=== PATIENT | male | born 1935 | race Caucasian/White ===

== ENCOUNTER 2019-08-28 10:09 | Observation (INO) ==
--- OUTSIDE RECORDS SUMMARY | 2019-08-28 10:12 | External Medical Summary | Continuity of Care Document ---
:1935 Author Name Chyna Copeland, Provider Address Unavailable Unavailable , Care Team Providers Name Role Phone Non[facility] Min, Provider Unavailable [email or web address] Active medical history not documented Allergies and Adverse Reactions Allergy history not documented Medications Medications not documented Procedures Procedures not documented Immunizations Immunizations not documented Plan of Treatment Planned Observations Planned Goals not documented Results No Known Results Results not documented
[2019-08-28] MEDS ORDERED: NITROGLYCERIN 2% OINTMENT 30GM TUBE EXT STA (10:19)
--- NOTE | 2019-08-28 10:24 | Emergency Department Note ---
Impression & Plan Precordial chest pain, History of coronary artery disease, RBBB, H/O mechanical aortic valve replacement ED Provider Note NAME: YAKOV STERLING AGE: 84 SEX: M : 1935 ARRIVES VIA: Ambulance INFORMANT: [Patient][ems] ED PROVIDER(S): [Kelechi Rodriguez MD] CHIEF COMPLAINT: Chest pain HISTORY OF PRESENT ILLNESS: The patient is an 84-year-old male who presents to the ER with chest pain which began yesterday. He describes the pain as a burning. The pain does not radi ate. There has been no shortness of breath, sweating or nausea. The pain is rated at its worst as a 7/10. The patient thinks that exertion makes the pain worse, rest makes it better. He states it feels like angina. The patient has a mechanical aortic valve. He had coronary bypasses in 2001. Justa blanchard has a total of 5 stents, the last stent was placed in 2018. The patient presents by EMS. He was given a baby aspirin in route. There has been no cough, cold or congestion, he has not suffered trauma. He typically goes to the [facility] system but, they could not see him today. REVIEW OF SYSTEMS: See HPI for pertinent positives and negatives. A total of ten systems were reviewed and were otherwise negative. PMHx/PSHx: See Below SOCIAL HISTORY: See Below. PHYSICAL EXAM: GENERAL: Patient is in no acute distress. HEENT: No acute trauma, normocephalic atraumatic, mucous membranes moist, no nasal congestion, no scleral icterus. NECK: No stridor, no adenopathy, no meningismus, trachea is midline. LUNGS: Clear to auscultation bilaterally, no wheeze, no rhonchi, breath sounds equal. HEART: 3/6 systolic murmur, metallic click heard. Regular rate and rhythm. Chest: Tender to the left anterior chest wall just below the left breast. No rash. ABDOMEN: Soft, nontender, bowel sounds positive, no hernias, no peritonitis. EXTREMITIES: No cyanosis or edema, full range of motion of all the joints without pain or difficulty, no signs for acute trauma. NEUROLOGIC: Oriented x 3, no acute motor or sensory deficits, no focal weakness. SKIN: No rash, no jaundice, no diaphoresis. DIFFERENTIAL DIAGNOSIS: Cardiac ischemia, aortic dissection, pulmonary embolism, pneumothorax, pneumonia, pericarditis, myocarditis, esophageal rupture, GERD, cholecystitis, pancreatitis, musculoskeletal, as well as other pathologies. EMERGENCY DEPARTMENT COURSE/PROCEDURES: ECG: Indication was chest pain. The ECG shows a sinus rhythm with a first- degree AV block. PVCs are present. There is a right bundle branch block. The rate is 73. QTC is 531. There is no ST elevation. LVH is present. No old ECGs available for comparison. Continuous Cardiac Monitoring: An order was placed for continuous cardiac wen toring. The monitor shows a rate of 75 with sinus rhythm with a first-degree AV block. PVCs are noted.. MEDICAL DECISION MAKING: There is no leukocytosis or concerning anemia. There is a normal platelet count. INR is elevated at 4.2, he is over the therapeutic window with his Coumadin use. There was no significant electrolyte abnormality or kidney failure. No concerning liver enzyme elevation. No evidence for pancreatitis. ECG shows a sinus rhythm with a right bundle branch block, no obvious ischemia. Cardiac enzyme testing x1 is not consistent with acute cardiac injury. Chest film shows some congestion at both bases especially on the right. There is no pneumothorax or mediastinal widening. No old chest x-rays to use for comparison. The patient presents with precordial chest pain which is described as exertional. He does have a significant history of coronary artery disease. He has had coronary bypass and coronary stenting. His pain feels like his previous diagnosis of angina. The patient does have some reproducible left chest pain by my exam. His pain of course could be musculoskeletal. Given his history though, I do think further cardiac work-up is warranted. The patient received nitroglycerin paste while here in the ED. He is resting comfortably. I did discuss my results with him. The on-call hospitalist has been consulted. Case management has been involved. Past Med/Surg History Medical History History of coronary artery disease (Acute) Surgical History H/O mechanical aortic valve replacement (Acute) Social History Smoking Status: Former smoker Feels Safe at Home: Yes Allergies Allergies Allergy/AdvReac Type Severity Reaction Status Date / Time aspirin AdvReac Intermediate high doses Unverified 08/28/19 11:06 burn his stomach Home Meds Home Medications Medication Instructions Recorded Confirmed aspirin 81 mg PO QAM 08/28/19 08/28/19 ezetimibe 10 mg PO QAM 08/28/19 08/28/19 finasteride 5 mg PO PM 08/28/19 08/28/19 furosemide [Lasix] 20 mg PO QAM 08/28/19 08/28/19 glycerin (adult) 1 supp UT DAILY PRN 08/28/19 08/28/19 guaifenesin [Mucinex] 600 mg PO QAM 08/28/19 08/28/19 hydralazine 50 mg PO QID 08/28/19 08/28/19 hydrochlorothiazide 25 mg PO QAM 08/28/19 08/28/19 methocarbamol 500 mg PO QID 08/28/19 08/28/19 multivitamin 1 tab PO QAM 08/28/19 08/28/19 nitroglycerin 1 patch TRANSDERMAL QA 08/28/19 08/28/19 nitroglycerin 1 patch TRANSDERMAL QAM 08/28/19 08/28/19 ranolazine 1,000 mg PO BID 08/28/19 08/28/19 tamsulosin 0.4 mg PO HS 08/28/19 08/28/19 warfarin 5 mg PO PM 08/28/19 08/28/19 Results & Data (ED) Vital Signs Vital Signs - 24 hr 08/28/19 10:20 08/28/19 10:23 08/28/19 10:28 Temperature Temperature Source Pulse Rate 72 73 73 Pulse Rate from SpO2 Sensor 72 73 Respiratory Rate 15 16 20 Respiratory Effort / Characteristics Respiratory Depth Respiratory Pattern Blood Pressure 159/79 H Blood Pressure Mean 117 Pulse Oximetry 95 95 95 Oxygen Delivery Method Room Air Sepsis Recent Fever Within 48 Hours Sepsis New/Unexplained Change in Mental Status Sepsis Action Taken by Nursing 08/28/19 10:30 08/28/19 10:31 08/28/19 10:33 Temperature 36.7 C Temperature Source Oral Pulse Rate 72 73 73 Pulse Rate from SpO2 Sensor 70 73 Respiratory Rate 16 19 20 Respiratory Effort / Characteristics Non-Labored Spontaneous Respiratory Depth Normal Respiratory Pattern Regular Blood Pressure 150/75 H 183/88 H Blood Pressure Mean 101 119 Pulse Oximetry 94 96 95 Oxygen Delivery Method Room Air Sepsis Recent Fever Within 48 Hours No Sepsis New/Unexplained Change in Mental Status No Sepsis Action Taken by Nursing No Action Required 08/28/19 11:00 Temperature Temperature Source Pulse Rate 75 Pulse Rate from SpO2 Sensor Respiratory Rate 16 Respiratory Effort / Characteristics Respiratory Depth Respiratory Pattern Blood Pressure 124/59 L Blood Pressure Mean 76 Pulse Oximetry Oxygen Delivery Method Sepsis Recent Fever Within 48 Hours Sepsis New/Unexplained Change in Mental Status Sepsis Action Taken by Usp Medications Current Medication List: was personally reviewed by me Laboratory Data Attestation: I reviewed the patient's lab results. Result diagrams: 08/28/19 09:30 08/28/19 09:30 Lab Results 08/28/19 08/28/19 08/28/19 Range/Units 09:30 09:30 09:30 WBC 7.05 (4.8-10.8) K/uL RBC 4.27 L (4.7-6.1) M/uL Hgb 14.9 (14.0-18.0) g/dL Hct 41.4 L (42-52) % MCV 97.0 (80-100) fL MCH 34.9 H (25-34) pg MCHC 36.0 (32-36) g/dL RDW Std Deviation 48.0 H (36.4-46.3) fL RDW Coeff of Jaclyn 13.8 (11.5-14.5) % Plt Count 165 (130-400) K/uL MPV 10.4 (7.4-10.4) fL Immature Gran % (Auto) 0.3 % Neut % (Auto) 65.9 % Lymph % (Auto) 21.6 % Cascade % (Auto) 9.4 % Eos % (Auto) 2.4 % Baso % (Auto) 0.4 % Neut # (Auto) 4.65 (1.4-6.5) K/uL Lymph # (Auto) 1.52 (1.2-3.4) K/uL Cascade # (Auto) 0.66 H (0.11-0.59) K/uL Eos # (Auto) 0.17 (0-0.5) K/uL Baso # (Auto) 0.03 (0-0.2) K/uL Immature Gran # (Auto) 0.02 (0.00-0.02) K/uL PT 41.0 H (9.0-12.0) Seconds INR 4.2 H (0.9-1.1) APTT 45.3 H* (21.0-31.0) Seconds PTT Ratio 1.6 Sodium 134 L (136-145) mmol/L Potassium 3.9 (3.5-5.1) mmol/L Chloride 103 (98-107) mmol/L Carbon Dioxide 25 (21-32) mmol/L Anion Gap 7.0 (3-11) BUN 18 (7-18) mg/dl Creatinine 1.09 (0.6-1.4) mg/dl Est Cr Clr Drug Dosing 56.7 ml/min Est GFR ( Amer) 72.4 Est GFR (Non-Af Amer) 62.4 BUN/Creatinine Ratio 16.3 (10-20) Glucose 150 H (70-99) mg/dl Calcium 9.3 (8.5-10.1) mg/dl Magnesium 2.1 (1.8-2.4) mg/dl Total Bilirubin 0.8 (0.2-1) mg/dl AST 39 H (15-37) U/L ALT 41 (12-78) U/L Alkaline Phosphatase 54 (45-117) U/L Troponin I < 0.015 (0-0.045) ng/ml Total Protein 7.7 (6.4-8.2) gm/dl Albumin 3.6 (3.4-5.0) gm/dl Globulin 4.1 H (2.5-4.0) gm/dl Albumin/Globulin Ratio 0.9 (0.9-2) Lipase 67 L (73-393) U/L Specimen Hemolysis Administered Medications Discontinued Medications Nitroglycerin (Nitro-Bid 2%) 2 inch EXT NOW STA Stop: 08/28/19 10:20 Last Admin: 08/28/19 10:49 Dose: 2 inch Documented by: [id number] Imaging Data Radiologist's Impression: SINGLE VIEW CHEST CLINICAL HISTORY: Atypical chest pain. FINDINGS: An AP, portable, upright chest radiograph is obtained No prior studies are available for comparison at the time of dictation. The examination is degraded by portable technique and patient rotation. The patient is status post midline sternotomy. The heart is enlarged noting atherosclerotic calcification of the thoracic aorta. The pulmonary vasculature is noncongested. There is patchy airspace consolidation at the lung bases, right greater than left. A small right pleural effusion is noted. No pneumothorax is seen. The skeletal structures are osteopenic. The bony thorax is grossly intact. IMPRESSION: 1. Cardiomegaly without radiographic evidence of congestive failure. 2. There is right greater than left bibasilar airspace consolidation. Correlate clinically for evidence of pneumonia/aspiration pneumonitis. Radiographic follow-up to resolution is recommended. 3. Small right pleural effusion. Blood Pressure Blood Pressure Findings: Elevated blood pressure Blood Pressure Disposition: further management by hospitalist Discharge Plan Visit Data Chief Complaint: Cardiac Assessment Stated Complaint: chest discomfort ED Provider: Kelechi Rodriguez Discharge Problem: Precordial chest pain, History of coronary artery disease, RBBB, H/O mechanical aortic valve replacement Patient Disposition: Admitted As Inpatient Condition: Good Forms Stand Alone Forms: [facility] [place] Prescriptions Prescriptions: No Action multivitamin Tablet 1 tab PO QAM RF: 0 methocarbamol 500 mg Tablet 500 mg PO QID RF: 0 nitroglycerin 0.2 mg/hr Patch 24 Hour 1 patch TRANSDERMAL QAM RF: 0 aspirin 81 mg Tablet,Delayed Release (Dr/Ec) 81 mg PO QAM RF: 0 nitroglycerin 0.4 mg/hr Patch 24 Hour 1 patch TRANSDERMAL QAM RF: 0 tamsulosin 0.4 mg Capsule 0.4 mg PO HS RF: 0 warfarin 5 mg Tablet 5 mg PO PM RF: 0 hydralazine 50 mg Tablet 50 mg PO QID RF: 0 hydrochlorothiazide 25 mg Tablet 25 mg PO QAM RF: 0 furosemide [Lasix] 20 mg Tablet 20 mg PO QAM RF: 0 finasteride 5 mg Tablet 5 mg PO PM RF: 0 ezetimibe 10 mg Tablet 10 mg PO QAM RF: 0 glycerin (adult) Suppository 1 supp UT DAILY PRN (Reason: Constipation) RF: 0 ranolazine 500 mg Tablet Extended Release 12 Hr 1,000 mg PO BID RF: 0 guaifenesin [Mucinex] 600 mg Tablet Extended Release 12hr 600 mg PO QAM RF: 0 Referrals Referrals: Ifeanyi Kauffman MD [Primary Care Provider] -
[2019-08-28 10:29] LABS: Basophils # (auto) 0.03 K/uL (0-0.2); Basophils % (auto) 0.4 %; Eosinophils # (auto) 0.17 K/uL (0-0.5); Eosinophils % (auto) 2.4 %; Hematocrit (blood only) 41.4 % (42-52); Hemoglobin 14.9 g/dL (14.0-18.0); Immature Granulocytes # (auto) 0.02 K/uL (0.00-0.02); Immature Granulocytes % (auto) 0.3 %; Lymphocytes # (auto) 1.52 K/uL (1.2-3.4); Lymphocytes % (auto) 21.6 %; Mean Corpuscular Hemoglobin 34.9 pg (25-34); Mean Platelet Volume 10.4 fL (7.4-10.4); Monocytes # (auto) 0.66 K/uL (0.11-0.59); Monocytes % (auto) 9.4 %; Neutrophils # (auto) 4.65 K/uL (1.4-6.5); Neutrophils % (auto) 65.9 %; Platelet Count 165 K/uL (130-400); RDW Coefficient of Variation 13.8 % (11.5-14.5); Red Blood Count 4.27 M/uL (4.7-6.1); White Blood Count 7.05 K/uL (4.8-10.8)
--- NOTE | 2019-08-28 10:47 | XRay Report ---
SINGLE VIEW CHEST CLINICAL HISTORY: Atypical chest pain. FINDINGS: An AP, portable, upright chest radiograph is obtained No prior studies are available for co mparison at the time of dictation. The examination is degraded by portable technique and patient rota tion. The patient is status post midline sternotomy. The heart is enlarged noting atherosclerotic chinedu cification of the thoracic aorta. The pulmonary vasculature is noncongested. There is patchy airspace consolidation at the lung bases, right greater than left. A small right pleural effusion is noted. N o pneumothorax is seen. The skeletal structures are osteopenic. The bony thorax is grossly intact. IMPRESSION: 1. Cardiomegaly without radiographic evidence of congestive failure. 2. There is right greater than left bibasilar airspace consolidation. Correlate clinically for eviden ce of pneumonia/aspiration pneumonitis. Radiographic follow-up to resolution is recommended. 3. Small right pleural effusion. ACT 112: Negative or not required by law. Electronically signed by: Kelechi De La Rosa M.D. 08/28/2019 10:46 AM
[2019-08-28 10:53] LABS: INR 4.2 (0.9-1.1); Partial Thromboplastin Ratio 1.6
[2019-08-28 10:55] LABS: Alanine Aminotransferase 41 U/L (12-78); Albumin Level 3.6 gm/dl (3.4-5.0); Aspartate Aminotransferase 39 U/L (15-37); BUN Creatinine Ratio 16.3 (10-20); Blood Urea Nitrogen 18 mg/dl (7-18); Calcium 9.3 mg/dl (8.5-10.1); Carbon Dioxide 25 mmol/L (21-32); Chloride 103 mmol/L (98-107); Creatinine Clr Calc Pharmacy 56.7 ml/min; Est GFR (African American) 72.4; Est GFR (Non-African American) 62.4; Glucose 150 mg/dl (70-99); Lipase 67 U/L (73-393); Magnesium 2.1 mg/dl (1.8-2.4); Potassium 3.9 mmol/L (3.5-5.1); Sodium 134 mmol/L (136-145)
[2019-08-28 11:01] LABS: Albumin Globulin Ratio 0.9 (0.9-2); Alkaline Phosphatase 54 U/L (45-117); Bilirubin,Total 0.8 mg/dl (0.2-1); Globulin 4.1 gm/dl (2.5-4.0); Partial Thromboplastin Time 45.3 Seconds (21.0-31.0); Total Protein 7.7 gm/dl (6.4-8.2); Troponin I < 0.015 ng/ml (0-0.045)
--- NOTE | 2019-08-28 12:09 | History & Physical Report ---
Date of Service August 28, 2019 Assessment & Plan (1) Precordial chest pain: - Admit to [facility] with tele for obs - Trend cardiac biomarkers, initial set was negative - EKG reviewed as above - Check 2 D echo - Cardiology consulted - Dr. Cuello, follows with [facility] as oupt, will ask HIM for record request - Keep NPO for now - Lipids and A1C with am labs - PT/OT consulted (2) RBBB: - Noted on EKG - No previous ekg for comparison as he has not previously followed with our hospital. (3) History of coronary artery disease: - Hx of CAD, CABG times 3 in 2001, 5 cardiac stents, last 2 stents placed in the RCA on 08/12/2018 at [facility] - ASA 81 mg daily, ranolazine 1000 mg BID (4) H/O mechanical aortic valve replacement: -AV replacement in 2001 on Coumadin -INR = 4.2, takes 5 mg daily, will cut dose in half for this evening, pending INR resume home dose of 5 mg daily tomorrow (5) HTN (hypertension): -Continue Lasix 20 mg daily, continue hydralazine 50 mg QID, HCTZ 25 mg daily (6) HLD (hyperlipidemia): -Continue ezetimibe (7) History of tuberculosis: - Occurred in 1961 s/p treatment and RUL and RML partial resection - Continue mucinex as per home meds (8) DVT prophylaxis: -teds, coumadin CODE: DNR/DNI Dispo: From home, lives alone, likely to remain in the hospital overnight History of Present Illness Primary Care Provider: Ifeanyi Kauffman MD This is an 84-year-old male with PMHx of CAD, CABG times 3 in 2001, AV replacement in 2001 on Coumadin, 5 cardiac stents, last 2 stents placed in the RCA on 08/12/2018 at [facility], HTN, HLD, tuberculosis s/p right upper and right middle lobe resection in 196, remote smoking abuse 1 PPD x30 years, quit 40 years ago, obesity with BMI of 31.0 who presents with onset of left-sided chest pain x1 day. Patient noticed that yesterday evening, rated at moderate, and reports that he was unable to sleep overnight because of the severity of the burning sensation. He denies radiation to his arms, back, up the neck or into the jaw. He reports that it did not worsen with exertion, in fact getting up and moving around sometimes alleviated his burning sensation. He denies history of indigestion, is not on antacids, states he drinks 1 mini can of Coca-Cola daily. On exam I am able to reproduce some tenderness over the left chest wall, which feels similar to what he experienced yesterday, however he is unable to remember doing anything physically straining that would have caused muscle involvement. He lives at home by himself, does not require assistive ambulatory devices. Patient notes that his burning sensation is not similar to previous episodes of ACS or other cardiac involvement. He follows with cardiology through the [facility], however in light of COVID-19 he has been unable to get into see their specialists therefore presented to our ER here. Allergies Allergy/AdvReac Type Severity Reaction Status Date / Time aspirin AdvReac Intermediate high doses Unverified 08/28/19 11:06 burn his stomach Home Medications Home Medications Medication Instructions Recorded Confirmed Type aspirin 81 mg PO QAM 08/28/19 08/28/19 History ezetimibe 10 mg PO QAM 08/28/19 08/28/19 History finasteride 5 mg PO PM 08/28/19 08/28/19 History furosemide [Lasix] 20 mg PO QAM 08/28/19 08/28/19 History glycerin (adult) 1 supp LA DAILY PRN 08/28/19 08/28/19 History guaifenesin [Mucinex] 600 mg PO QAM 08/28/19 08/28/19 History hydralazine 50 mg PO QID 08/28/19 08/28/19 History hydrochlorothiazide 25 mg PO QAM 08/28/19 08/28/19 History methocarbamol 500 mg PO QID 08/28/19 08/28/19 History multivitamin 1 tab PO QAM 08/28/19 08/28/19 History nitroglycerin 1 patch TRANSDERMAL QAM 08/28/19 08/28/19 History nitroglycerin 1 patch TRANSDERMAL QAM 08/28/19 08/28/19 History ranolazine 1,000 mg PO BID 08/28/19 08/28/19 History tamsulosin 0.4 mg PO HS 08/28/19 08/28/19 History warfarin 5 mg PO PM 08/28/19 08/28/19 History Past Med/Surg History Family History (Updated 08/28/19 @ 12:22 by Katy Uriostegui PA-C) Other Heart disease Social History (Updated 08/28/19 @ 12:23 by Katy Uriostegui PA-C) Smoking Status: Former smoker Number of Years Since Quit: 40; Hx Alcohol Use: Yes Alcohol type: beer Alcohol Intake Frequency: 2-4 x/Month Current Living Situation: Alone Feels Safe at Home: Yes Review of Systems Review of Systems: Constitutional: No fever, sweats or chills Eyes: No diplopia, no worsening or blurred vision ENT: normal hearing, no trouble swallowing Respiratory: No cough, sputum, dyspnea at rest or on exertion Cardiovascular: As per HPI, currently no chest pain, tightness or palpitations Abdomen: No pain, nausea, vomiting, diarrhea or constipation Musculoskeletal: No joint pain, calf pain, swelling Neurologic: No weakness, numbness/tingling, or balance problems Psychiatric: No anxiety or depression Skin: No rash or itch Physical Exam Physical Exam: General: awake, alert, no apparent distress Head: Normocephalic, atraumatic ENT: PERRL, EOMI, no pharyngeal exudate, mucous membranes moist Chest: on room air, diminished breath sounds over the right upper and right middle lobes with faint crackles Cardiac: + Can produce pain over the left side of the chest wall with palpation, regular rate and rhythm, AV click, no JVD, normal peripheral pulses, good capillary refill Abdominal: NABS x 4 quadrants, soft, nondistended, nontender to palpation, no rebound, guarding or tenderness Extremities: Normal inspection, no peripheral edema or erythema, calfs nontender to palpation Psych: Normal mood and affect Neuro: AAO x 3, strength intact bilaterally and rated 5/5, no motor deficits, speech is clear, no peripheral sensory deficits Skin: no rash or erythema Results & Data Results & Data ([facility]) Vital Signs (Past 12 Hours) Vital Signs Temp Pulse Resp BP Pulse Ox 08/28/19 11:00 75 16 124/59 L 08/28/19 10:33 36.7 C 73 20 183/88 H 95 08/28/19 10:31 73 19 96 08/28/19 10:30 72 16 150/75 H 94 08/28/19 10:28 73 20 95 08/28/19 10:23 73 16 95 08/28/19 10:20 72 15 159/79 H 95 Diagnostic Findings SINGLE VIEW CHEST CLINICAL HISTORY: Atypical chest pain. FINDINGS: An AP, portable, upright chest radiograph is obtained No prior studies are available for comparison at the time of dictation. The examination is degraded by portable technique and patient rotation. The patient is status post midline sternotomy. The heart is enlarged noting atherosclerotic calcification of the thoracic aorta. The pulmonary vasculature is noncongested. There is patchy airspace consolidation at the lung bases, right greater than left. A small right pleural effusion is noted. No pneumothorax is seen. The skeletal structures are osteopenic. The bony thorax is grossly intact. IMPRESSION: 1. Cardiomegaly without radiographic evidence of congestive failure. 2. There is right greater than left bibasilar airspace consolidation. Correlate clinically for evidence of pneumonia/aspiration pneumonitis. Radiographic follow-up to resolution is recommended. 3. Small right pleural effusion. ECG Additional Comments: 28-AUG-2019 10:19:20 [facility]-EDSTAT ROUTINE RETRIEVAL Sinus rhythm with 1st degree A-V block with Premature atrial complexes with Aberrant conduction Left axis deviation Right bundle branch block Left ventricular hypertrophy with repolarization abnormality Cannot rule out Septal infarct , age undetermined Abnormal ECG No previous ECGs available 25mm/s 10mm/mV 150Hz 9.0.9 12SL 241 JOSEE: 3 Unconfirmed Vent. rate 73 BPM LA interval 292 ms QRS duration 180 ms QT/QTc 482/531 ms P-R-T axes 49 -62 88 Code Status & VTE Plan Code Status DNR/DNI -discussed with the patient at bedside VTE Prophylaxis Plan VTE Prophylaxis will be ordered: No Supervising Physician Co-Signing Physician Notes I personally saw and examined the patient. I verified all dorman points and agree with RAMONE Uriostegui with the following exceptions and/or additions: 84-year-old male with significant cardiovascular history including three-vessel bypass and subsequently 5 stents who presents to the ER with chest pain. Chest pain on the left side of his chest severity 8/10, started 8 PM last night, intermittently waxing and waning since then, not exertional and actually can improve on exertion, not positional or pleuritic. He reports having similar pain in this area prior to his last cardiac cath requiring 2 stents placed in the SVG to RCA in August 2018 in [place]. He reports resolution of this pain previously after stents were placed. The only difference is this pain is nonexertional whereas previously it was very exertional. No new exercises, trauma or lifting to explain possible musculoskeletal pain. No association with food. Cardiac history limited by patient recollection as we do not have any prior notes available at the time of admission. Mechanical aortic valve as above. O/E Reproducible chest pain over the left sternal border, AV click significant murmur, RRR with occasional skipped beats, chest CTAB, abdomen SNT, BS +ve, trace bilateral pitting edema to knees A/P Chest pain -only concerning aspect given troponin is negative is that he feels this is similar to prior cardiac chest pain. Notably inconsistent with what he told Marcy. I have a low suspicion this is ACS therefore no need to aggressively treat to make him pain-free at present. However given similarities we will keep n.p.o. prior to cardiology consult; discussed case with Dr. Cuello and echocardiogram ordered. Otherwise plan as above. PG Care Time/CCT Total # of Minutes Spent Total Time Spent with Patient: Total time spent is greater than 50% in coordination of care (as documented) at patient's floor/unit and/or counseling patient: Coding Level of Care Code 94808 OBS Care - Level 3 Diagnoses Precordial chest pain R07.2 RBBB I45.10 History of coronary artery disease Z86.79 H/O mechanical aortic valve replacement Z95.2 HTN (hypertension) I10 HLD (hyperlipidemia) E78.5 History of tuberculosis Z86.11 DVT prophylaxis Z29.9
[2019-08-28] MEDS ORDERED: ACETAMINOPHEN 325 MG TAB PO PRN (14:02)
[2019-08-28] MEDS ORDERED: ONDANSETRON INJ 2 MG/ML 2 ML VIAL IV PRN (14:02)
[2019-08-28] MEDS ORDERED: GLYCERIN ADULT 12 SUPP/BOX SUPP PR PRN (14:15)
--- NOTE | 2019-08-28 15:06 | Cardiology Consultation ---
Date of Consultation August 28, 2019 Assessment & Plan (1) CAD (coronary artery disease): (2) History of coronary artery bypass graft x 3: (3) Precordial chest pain: (4) H/O mechanical aortic valve replacement: (5) HTN (hypertension): (6) HLD (hyperlipidemia): (7) Anticoagulant long-term use: ASSESSMENT/PLAN: 1. Chest pain: Chest pain is atypical. Chest pain is reproducible on exam upon palpation, suggesting musculoskeletal origin. He has had chest pain for hours and troponin remains undetectable. No obvious wall motion abnormalities on preliminary review of echo. Recommend further evaluation by primary service for noncardiac chest pain. He is being admitted by primary service for rule out. 2. Multivessel CAD s/p CABG x 3 and PCI x 5: Chest pain appears noncardiac as above. Continue aspirin 81 mg daily. He reportedly has not tolerated beta- blockers or statin therapy. Continue to follow closely with primary superintendent terminal. 3. Mechanical aortic valve replacement: By history, he has a mechanical aortic valve in 2001. No significant stenosis demonstrated on preliminary review of echo. Formal review to follow. On anticoagulation. INR is supratherapeutic. Will defer management of Coumadin to primary service. 4. Hypertension: Blood pressure has been normotensive to hypertensive. Continue home regimen and adjustment as per primary service to optimize blood pressure control as appropriate. 5. Dyslipidemia: He reports statin intolerance. On Zetia by his outpatient providers. 6. Anticoagulation therapy: Supratherapeutic INR. Management as per primary service. 7. Disposition: On discharge, he should [facility] Please call if troponins become elevated or if any other concerns or questions arise. Cardiology will otherwise sign off at this time. Recommend obtaining records from his primary superintendent terminal to have a better understanding of his coronary stents and bypass graft targets. Patient care discussed with primary hospitalist Service, Dr. Shea. Thank you for allowing me to participate in the care of your patient. Please call for any other questions or concerns. Sincerely, Richi Cuello M.D. History of Present Illness Reason for Consultation: chest pain; CAD s/p CABG x 3; PCI; AVR Requesting Physician: Dr. Shea Attending Physician: Ishmael Shea MD History of Present Illness Mr. 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 His primary superintendent terminal [facility] [place]. After his CABG x3 and mechanical aortic valve replacement in 2001, he has had 5 stents placed. Unfortunately, his stent cards were not available during our visit. His most recent PCI was reportedly on 08/12/2018 at the [facility] where he reportedly underwent PCI within the RCA. No further details were available at the time of this note. He states that since yesterday afternoon he has been experiencing a left-sided chest pain described as a burning sensation. He states that he never had this type of symptom before. He states it is different than his prior angina. He has not noted any trigger other than palpation to that area which worsens his pain. He denies any alleviating factor. The pain does not radiate and there is no associated shortness of breath or diaphoresis. Pain does not worsen with ambulation. He states that his pain with prior [place], was very severe and different than this pain. He has a chronic and stable cough productive of sputum which has not worsened. He denies fevers or chills. He denies syncope, near-syncope, palpitations, edema, nausea, vomiting, or bleeding such as melena, hematochezia, or hematuria. He does very little exercise secondary to back spasm. He has not tolerated beta-cheo nor statin therapy in the past. He does not recall all of the adverse reactions to these medications. While he was being evaluated in the emergency department, he admits that the pain continued to occur. When the donor center technician was placing her probe on his chest, it exacerbated his pain. Review of systems: As above. Review of systems otherwise negative/unremarkable. Family history: Father at the age of 69 with [place]. Social history: He smoked 1 pack per day for years but quit approximately 40 years ago. No current alcohol. No drug abuse. He lives alone. . He has 2 sons who live in [place], [place]. He is unaccompanied. Allergies Allergy/AdvReac Type Severity Reaction Status Date / Time aspirin AdvReac Intermediate high doses Unverified 08/28/19 11:06 burn his stomach Home Medications Home Medications Medication Instructions Recorded Confirmed Type aspirin 81 mg PO QAM 08/28/19 08/28/19 History ezetimibe 10 mg PO QAM 08/28/19 08/28/19 History finasteride 5 mg PO PM 08/28/19 08/28/19 History furosemide [Lasix] 20 mg PO QAM 08/28/19 08/28/19 History glycerin (adult) 1 supp [place] DAILY PRN 08/28/19 08/28/19 History guaifenesin [Mucinex] 600 mg PO QAM 08/28/19 08/28/19 History hydralazine 50 mg PO QID 08/28/19 08/28/19 History hydrochlorothiazide 25 mg PO QAM 08/28/19 08/28/19 History methocarbamol 500 mg PO QID 08/28/19 08/28/19 History multivitamin 1 tab PO QAM 08/28/19 08/28/19 History nitroglycerin 1 patch TRANSDERMAL QAM 08/28/19 08/28/19 History nitroglycerin 1 patch TRANSDERMAL QAM 08/28/19 08/28/19 History ranolazine 1,000 mg PO BID 08/28/19 08/28/19 History tamsulosin 0.4 mg PO HS 08/28/19 08/28/19 History warfarin 5 mg PO PM 08/28/19 08/28/19 History Patient History Medical History Anticoagulant long-term use CAD (coronary artery disease) History of tuberculosis HLD (hyperlipidemia) HTN (hypertension) Surgical History H/O mechanical aortic valve replacement (Acute) History of coronary artery bypass graft x 3 Hx of cholecystectomy Hx of rotator cuff surgery S/P lobectomy of lung Family History Other Heart disease Social History Smoking Status: Former smoker Number of Years Since Quit: 40; Second Hand Exposure: No; Hx Alcohol Use: No Hx Substance Use: No Preferred Language: Salvadorean Communication Ability: Effective Conventional Mortgage Underwriter Required: No Beliefs That Will Affect Care: None Current Living Situation: Alone Feels Safe at Home: Yes Physical Exam Physical Exam: Gen.: No acute distress. Alert and oriented. HEENT: Anicteric sclera. Neck: No JVD. No bruits. Normal carotid upstrokes bilaterally. Cardiac: PMI was nonpalpable . No ventricular heave. Regular with occasional ectopy. Normal S1. [place] S2. 2/6 systolic murmur. No rubs, or gallops. Pulmonary: Decreased breath sounds bilaterally, but otherwise clear to auscultation bilaterally without wheezes, rales, or rhonchi. Abdomen: Soft, nontender, nondistended, with normoactive bowel sounds. No bruits noted. Extremities: 2+ radial pulses bilaterally. Weak posterior tibialis pulses bilaterally. No edema or cyanosis. No palpable cords. Psychiatric: Affect appears appropriate. Chest: Very tender to palpation on the left chest, reproducing his chest Come for described above. No obvious mass or rash in this area. Results & Data ([facility]) Vital Signs (Past 12 Hours) Vital Signs Temp Pulse Pulse Resp BP BP Pulse Ox 08/28/19 14:02 36.5 C 75 22 163/74 H 95 08/28/19 13:01 73 16 93 08/28/19 13:00 74 18 121/66 95 08/28/19 12:42 75 19 95 08/28/19 12:41 75 24 123/59 L 95 08/28/19 12:30 83 18 08/28/19 12:01 80 13 95 08/28/19 12:00 76 22 153/78 H 94 08/28/19 11:31 76 16 94 08/28/19 11:30 80 15 140/74 94 08/28/19 11:01 74 13 08/28/19 11:00 75 16 124/59 L 08/28/19 10:33 36.7 C 73 20 183/88 H 95 08/28/19 10:31 73 19 96 08/28/19 10:30 72 16 150/75 H 94 08/28/19 10:28 73 20 95 08/28/19 10:23 73 16 95 08/28/19 10:20 72 15 159/79 H 95 Laboratory Results Laboratory Results - last 24 hr 08/28/19 08/28/19 08/28/19 09:30 09:30 09:30 WBC 7.05 RBC 4.27 L Hgb 14.9 Hct 41.4 L MCV 97.0 MCH 34.9 H MCHC 36.0 RDW Std Deviation 48.0 H RDW Coeff of Jaclyn 13.8 Plt Count 165 MPV 10.4 Immature Gran % (Auto) 0.3 Neut % (Auto) 65.9 Lymph % (Auto) 21.6 [place] % (Auto) 9.4 Eos % (Auto) 2.4 Baso % (Auto) 0.4 Neut # (Auto) 4.65 Lymph # (Auto) 1.52 [place] # (Auto) 0.66 H Eos # (Auto) 0.17 Baso # (Auto) 0.03 Immature Gran # (Auto) 0.02 PT 41.0 H INR 4.2 H APTT 45.3 H* PTT Ratio 1.6 Sodium 134 L Potassium 3.9 Chloride 103 Carbon Dioxide 25 Anion Gap 7.0 BUN 18 Creatinine 1.09 Est Cr Clr Drug Dosing 56.7 Est GFR ( Amer) 72.4 Est GFR (Non-Af Amer) 62.4 BUN/Creatinine Ratio 16.3 Glucose 150 H Calcium 9.3 Magnesium 2.1 Total Bilirubin 0.8 AST 39 H ALT 41 Alkaline Phosphatase 54 Troponin I < 0.015 Total Protein 7.7 Albumin 3.6 Globulin 4.1 H Albumin/Globulin Ratio 0.9 Lipase 67 L Specimen Hemolysis Diagnostic Findings Echo images personally reviewed on 08/28/2019: Preliminary review demonstrated normal left ventricular systolic function without obvious wall motion abnormalities. Aortic valve replacement appeared to be functioning appropriately, without significant stenosis. Formal review to follow. ECG personally reviewed: ECG 08/28/2019: Sinus rhythm with first-degree AV blockat 73 bpm. PVC. RBBB. LVH with repolarization abnormality. Chest x-ray 08/28/2019: Right greater than left bibasilar air space consolidation per Radiology. Images personally reviewed. No significant findings to suggest CHF. Sternotomy noted. Medications Administered Current Inpatient Medications Acetaminophen (Tylenol) 650 mg PO Q4H PRN PRN Reason: Moderate Pain Stop: 09/27/19 14:01 Aspirin (Ecotrin Ectab) 81 mg PO QAM [facility] Stop: 09/28/19 08:59 Ezetimibe (Zetia) 10 mg PO QAM [facility] Stop: 09/28/19 08:59 Finasteride (Proscar) 5 mg PO PM [facility] Stop: 09/27/19 20:59 Furosemide (Lasix) 20 mg PO QAM [facility] Stop: 09/28/19 08:59 Glycerin (Glycerin Adult) 1 supp [place] DAILY PRN PRN Reason: CONSTIPATION Stop: 09/27/19 14:14 Guaifenesin (Mucinex) 600 mg PO QAM [facility] Stop: 09/28/19 08:59 Hydralazine HCl (Apresoline) 50 mg PO QID [facility] Stop: 09/27/19 14:29 Hydrochlorothiazide (Hctz) 25 mg PO QAM [facility] Stop: 09/28/19 08:59 Methocarbamol (Robaxin) 500 mg PO QID [facility] Stop: 09/27/19 14:29 Miscellaneous (Remove Nitro-Dur Patch) 1 ea N/A DAILY@2100 [facility] Stop: 09/27/19 20:59 Miscellaneous (Remove Nitro-Dur Patch) 1 ea N/A DAILY@2100 [facility] Stop: 09/27/19 20:59 Multivitamins (Multivitamin Tab) 1 tab PO [facility] Stop: 09/28/19 08:59 Nitroglycerin (Matthew-Dur 0.2mg/Hr) 1 patch TD QAM [facility] Stop: 09/28/19 08:59 Nitroglycerin (Nitro-Dur 0.4mg/Hr) [facility] Stop: 09/28/19 08:59 Ondansetron HCl (Zofran) 4 mg IV Q4H PRN PRN Reason: Nausea And Vomiting Stop: 09/27/19 14:01 Ranolazine (Ranexa) 1,000 mg PO BID [facility] Stop: 09/27/19 20:59 Tamsulosin HCl (Flomax) 0.4 mg PO HS [facility] Stop: 09/27/19 20:59 Warfarin Sodium (Coumadin) 2.5 mg PO DAILY@1800 [facility] Stop: 09/28/19 17:59 PG Care Time/CCT Total # of Minutes Spent Total Time Spent with Patient: Total time spent is greater than 50% in coordination of care (as documented) at patient's floor/unit and/or counseling patient: Coding Level of Care Code 10954 Office/Outpt Visit, New Diagnoses CAD (coronary artery disease) I25.10 History of coronary artery bypass graft x 3 Z95.1 Precordial chest pain R07.2 H/O mechanical aortic valve replacement Z95.2 HTN (hypertension) I10 HLD (hyperlipidemia) E78.5 Anticoagulant long-term use Z79.01
[2019-08-28] MEDS: HydrALAZINE TAB 50 MG TAB PO SCH ×3 (15:30→20:55)
[2019-08-28] MEDS: METHOCARBAMOL 500 MG TABLET PO SCH ×3 (15:31→20:56)
[2019-08-28] MEDS ORDERED: WARFARIN SOD 2.5 MG TAB PO SCH (18:00)
--- NOTE | 2019-08-28 18:05 | XCELERA ---
[id number]
[2019-08-28] MEDS ORDERED: WARFARIN SOD 2.5 MG TAB PO STA (20:35)
[2019-08-28] MEDS: RANOLAZINE 500 MG ER TAB PO SCH (20:57)
[2019-08-28] MEDS ORDERED: TAMSULOSIN HCL 0.4 MG CAP PO SCH (21:00)
[2019-08-28] MEDS ORDERED: FINASTERIDE 5 MG TAB PO SCH (21:00)
[2019-08-28] MEDS ORDERED: [UNRECOGNIZED DRUG - REMARK] STA (21:29)
--- NOTE | 2019-08-28 23:04 | Electrocardiogram Report ---
Test Reason : Blood Pressure : / mmHG Vent. Rate : 073 BPM Atrial Rate : 073 BPM P-R Int : 292 ms QRS Dur : 180 ms QT Int : 482 ms P-R-T Axes : 049 -62 088 degrees QTc Int : 531 ms Sinus rhythm with 1st degree A-V block with Premature ventricular complexes Left axis deviation Right bundle branch block Left ventricular hypertrophy with repolarization abnormality Abnormal ECG No previous ECGs available Confirmed by Mynor Cuello ([id number]) on 08/28/2019 11:04:03 PM Referred By: Confirmed By:Mynor Cuello
[2019-08-29 04:46] VITALS: TEMP 98.8; O2SAT 97
[2019-08-29 07:31] LABS: Hematocrit (blood only) 42.1 % (42-52); Hemoglobin 14.8 g/dL (14.0-18.0); Mean Corpuscular Hemoglobin 34.7 pg (25-34); Mean Corpuscular Hgb Conc 35.2 g/dL (32-36); Mean Corpuscular Volume 98.6 fL (80-100); Mean Platelet Volume 10.1 fL (7.4-10.4); Platelet Count 148 K/uL (130-400); RDW Coefficient of Variation 13.8 % (11.5-14.5); RDW Standard Deviation 49.1 fL (36.4-46.3); Red Blood Count 4.27 M/uL (4.7-6.1); White Blood Count 6.45 K/uL (4.8-10.8)
[2019-08-29 07:49] LABS: INR 3.7 (0.9-1.1)
[2019-08-29] MEDS: HydrALAZINE TAB 50 MG TAB PO SCH (07:57)
[2019-08-29] MEDS: RANOLAZINE 500 MG ER TAB PO SCH (07:59)
[2019-08-29] MEDS: METHOCARBAMOL 500 MG TABLET PO SCH (08:00)
[2019-08-29 08:04] VITALS: BP 169/57; PULSE 71
[2019-08-29 08:06] LABS: Alanine Aminotransferase 38 U/L (12-78); Albumin Level 3.4 gm/dl (3.4-5.0); Aspartate Aminotransferase 29 U/L (15-37); BUN Creatinine Ratio 14.9 (10-20); Blood Urea Nitrogen 17 mg/dl (7-18); Calcium 8.6 mg/dl (8.5-10.1); Carbon Dioxide 29 mmol/L (21-32); Chloride 103 mmol/L (98-107); Cholesterol 180 mg/dl (0-200); Est GFR (Non-African American) 60.4; Glucose 102 mg/dl (70-99); Potassium 3.4 mmol/L (3.5-5.1); Sodium 137 mmol/L (136-145); Triglycerides 144 mg/dl (0-150); VLDL Cholesterol 29 mg/dl
[2019-08-29 08:10] LABS: Albumin Globulin Ratio 0.9 (0.9-2); Alkaline Phosphatase 50 U/L (45-117); Bilirubin,Total 0.9 mg/dl (0.2-1); Chol HDL Ratio 5; Globulin 3.7 gm/dl (2.5-4.0); HDL Cholesterol 37 mg/dl; LDL Cholesterol Calculated 114 mg/dl; Total Protein 7.1 gm/dl (6.4-8.2); Troponin I < 0.015 ng/ml (0-0.045)
[2019-08-29] MEDS ORDERED: NITROGLYCERIN 0.2 MG/HR PATCH TD SCH (09:00)
[2019-08-29] MEDS ORDERED: FUROSEMIDE 20 MG TAB PO SCH (09:00)
[2019-08-29] MEDS ORDERED: EZETIMIBE 10 MG TABLET PO SCH (09:00)
[2019-08-29] MEDS ORDERED: MULTIVITAMIN TAB PO SCH (09:00)
[2019-08-29] MEDS ORDERED: NITROGLYCERIN 0.4 MG/HR PATCH TD SCH (09:00)
[2019-08-29] MEDS ORDERED: guaiFENesin 600 MG TABCR PO SCH (09:00)
[2019-08-29] MEDS ORDERED: ASPIRIN 81 MG ECTAB PO SCH (09:00)
[2019-08-29] MEDS ORDERED: hydroCHLOROthiazide 25 MG TAB PO SCH (09:00)
[2019-08-29 09:09] LABS: Estimated Average Glucose 114 mg/dl; Hemoglobin A1C 5.6 % (4.5-5.6)
--- NOTE | 2019-08-29 10:49 | Discharge Summary ---
Date of Service August 29, 2019 Admission HPI Per Admitting Provider This is an 84-year-old male with PMHx of CAD, CABG times 3 in 2001, AV replacement in 2001 on Coumadin, 5 cardiac stents, last 2 stents placed in the [facility] on 08[facility]12/2018 at [facility], HTN, HLD, tuberculosis s/p right upper and right middle lobe resection in 1961, remote smoking abuse 1 PPD x30 years, quit 40 years ago, obesity with BMI of 31.0 who presents with onset of left-sided chest pain x1 day. Patient noticed that yesterday evening, rated at moderate, and reports that he was unable to sleep overnight because of the severity of the burning sensation. He denies radiation to his arms, back, up the neck or into the jaw. He reports that it did not worsen with exertion, in fact getting up and moving around sometimes alleviated his burning sensation. He denies history of indigestion, is not on antacids, states he drinks 1 mini can of Coca-Cola daily. On exam I am able to reproduce some tenderness over the left chest wall, which feels similar to what he experienced yesterday, however he is unable to remember doing anything physically straining that would have caused muscle involvement. He lives at home by himself, does not require assistive ambulatory devices. Patient notes that his burning sensation is not similar to previous episodes of ACS or other cardiac involvement. He follows with cardiology through the [facility], however in light of COVID-19 he has been unable to get into see their specialists therefore presented to our ER here. Principal Diagnosis Atypical chest pain, musculoskeletal Discharge Exam Constitutional WD/WN, vitals as above Eyes PERRL, conjunctivae normal, anicteric sclerae ENMT external ear and nose normal, oropharynx normal Neck trachea midline, no thyromegaly Respiratory normal respiratory effort, lungs clear to auscultation Cardiovascular RRR, no murmur, no edema Gastrointestinal (Abdomen) normal bowel sounds, soft, nontender, no hepatosplenomegaly Musculoskeletal no cyanosis or clubbing, extremities motor strength 5/5 Skin no rashes, warm and dry Neurologic patellar DTR's 2+ bilat, sensation intact and PERRL, EOMI, accommodation nl, no face palsy, no dysarthria Psychiatric A+Ox3, euthymic affect Lymphatic no cervical or axillary lymphadenopathy Discharge Data Allergies Allergy/AdvReac Type Severity Reaction Status Date / Time aspirin AdvReac Intermediate high doses Unverified 08/28/19 11:06 burn his stomach Consultations 08/28/19 11:24 ED Decision to Admit Stat 08/28/19 14:02 Consult Cardiology Routine Consult Case Management - Discharge Planning Routine Consult Health Information Management Stat Hospital Course (1) Precordial chest pain: - Trend cardiac biomarkers - troponin negative x 3 sets - EKG reviewed as above, no acute ischemic changes - Cardiology consulted - Dr. Cuello, can go home and follow up with [facility] strapping machine operator - Lipids and A1C with am labs: LDL 114 and HbA1c 5.6% (2) RBBB: - Noted on EKG - No previous ekg for comparison as he has not previously followed with our hospital. (3) History of coronary artery disease: - Hx of CAD, CABG times 3 in 2001, 5 cardiac stents, last 2 stents placed in the [facility]CA on 08/12/2018 at [facility] - ASA 81 mg daily, ranolazine 1000 mg BID (4) H/O mechanical aortic valve replacement: -AV replacement in 2001 on Coumadin -INR = 4.2, takes 5 mg daily, will cut dose in half for this evening, pending INR resume home dose of 5 mg daily tomorrow (5) HTN (hypertension): -Continue Lasix 20 mg daily, continue hydralazine 50 mg QID, HCTZ 25 mg daily (6) HLD (hyperlipidemia): -Continue ezetimibe (7) History of tuberculosis: - Occurred in 1 s/p treatment and RUL and RML partial resection - Continue mucinex as per home meds (8) DVT prophylaxis: -teds, coumadin CODE: DNR/DNI Dispo: From home, lives alone, can go home today Total Time Total Time Spent Total Time Spent (In Minutes): 20 Total Time Includes: Examination of the Patient, Discharge Planning and Medication Reconciliation Discharge Plan Discharge Items Patient Disposition: Home - Self-Care Reason For Visit: CHEST PAIN Discharge Diagnosis: Atypical chest pain, musculoskeletal chest pain Condition on Discharge: Good Goals: follow up with [facility] strapping machine operator Activity: As commented below Lifting: Gradually increase as tolerated Bathing: No limitations Exercise/Sports: Gradually increase as tolerated Driving/Machine Use: No limitations Weightbearing: Full weightbearing Non-emergency contact: Primary Care Provider and Chocolate Temperer Call non-emergency contact if: you have any medication questions, your symptoms worsen, your pain is not controlled, your pain is worsening and you have a fever Follow-up/Referrals: Ifeanyi Kauffman MD [Primary Care Provider] - Diet: Heart Healthy Ambulatory Orders: Prothrombin Time INR (Routine) Timeframe: 3 Days Location: Determined by Patient Ordered By: Katy Robertson Attending Provider Instructions: You were admitted to [facility] due to chest pain and diagnosed with atypical chest pain likely musculoskeletal in nature. During your stay here you were treated with supportive care, medications, your blood work was trended and was negative for cardiac involvement, and your symptoms improved. Imaging studies which were completed include Echocardiogram, and were normal- there was no identifiable acute change that would have suggested worsening cardiac function. You were evaluated by cardiology during your hospital stay, and recommend that you remain on the same medications and follow up closely with your strapping machine operator after discharge. Medications: Continue taking you medications as prescribed. Your INR today is 3.7 Please have a recheck INR done as outpatient within 3 days, and results faxed to your strapping machine operator as directed. Please take 5 mg per day Appointments: Follow up with PCP within 1 week, please call to schedule an appointment. Follow up with your strapping machine operator within 2 weeks, please call to schedule an appointment. Pending Studies at Discharge: No Stand-Alone Forms: My [facility] [employer], Smoking Cessation Medications and DC Order Prescriptions: Continued multivitamin Tablet 1 tab PO QAM RF: 0 methocarbamol 500 mg Tablet 500 mg PO QID RF: 0 nitroglycerin 0.2 mg/hr Patch 24 Hour 1 patch TRANSDERMAL QAM RF: 0 aspirin 81 mg Tablet,Delayed Release (Dr/Ec) 81 mg PO QAM RF: 0 nitroglycerin 0.4 mg/hr Patch 24 Hour 1 patch TRANSDERMAL QAM RF: 0 tamsulosin 0.4 mg Capsule 0.4 mg PO HS RF: 0 warfarin 5 mg Tablet 5 mg PO PM RF: 0 hydralazine 50 mg Tablet 50 mg PO QID RF: 0 hydrochlorothiazide 25 mg Tablet 25 mg PO QAM RF: 0 furosemide [Lasix] 20 mg Tablet 20 mg PO QAM RF: 0 finasteride 5 mg Tablet 5 mg PO PM RF: 0 ezetimibe 10 mg Tablet 10 mg PO QAM RF: 0 glycerin (adult) Suppository 1 supp [place] DAILY PRN (Reason: Constipation) RF: 0 ranolazine 500 mg Tablet Extended Release 12 Hr 1,000 mg PO BID RF: 0 guaifenesin [Mucinex] 600 mg Tablet Extended Release 12hr 600 mg PO QAM RF: 0 Discharge Orders: Discharge Order (Routine); Ordered 08/29/19 Ordered By: Jerel Hooper Admission Data Admit Date/Time: 08/28/19 11:55 Attending Provider: Jerel Hooper Admit Provider: Ishmael Shea Primary Care Provider: Ifeanyi Kauffman Other Providers: Ishmael Shea ; Mynor Cuello Coding Level of Care Code 56206 OBS Care - Discharge Diagnoses Precordial chest pain R07.2 RBBB I45.10 History of coronary artery disease Z86.79 H/O mechanical aortic valve replacement Z95.2 HTN (hypertension) I10 HLD (hyperlipidemia) E78.5 History of tuberculosis Z86.11 DVT prophylaxis Z29.9
[2019-08-29] MEDS ORDERED: WARFARIN SOD 2.5 MG TAB PO SCH (18:00)
== END 2019-08-29 11:24 | disposition home or self-care (01) ==
LOC: ED 10:09 → 2E 10:09 → SUATTDRO 11:55 → 2E 12:50

== ENCOUNTER 2020-09-06 02:42 | Inpatient (IN) ==
[2020-09-06] MEDS ORDERED: ACETAMINOPHEN 1,000 MG/100 ML VIAL IV STA (02:53)
[2020-09-06] MEDS ORDERED: fentaNYL citrate 100 MCG/2 ML VIAL IV PRN (02:53)
--- NOTE | 2020-09-06 02:58 | Emergency Department Note ---
History of Present Illness General Chief complaint: Pain (Generalized) Stated complaint: PAIN ALL OVER X SEVERAL WKS./ TINGLING DOWN ARMS Time Seen by Provider: 09/06/20 02:51 Source: patient Mode of arrival: EMS Limitations: no limitations History of Present Illness Provider complaint: pain Onset (ago): week(s) 3 Radiation: extremity Severity: moderate Maximum Pain Intensity: 7 Current Pain Intensity: 7 Quality: + constant Relieved By: + none Exacerbated By: + movement Treatments prior to arrival: none This is a 85 yo male who presents via EMS due to complaints of "pain everywhere". Patient states he has been dealing with pain for several week and did see his doctor at the [facility]. He states the pain starts in his neck/back and he was sent for an MRI but told he also needed a CT. He states "they didn't give me anything for pain" and tylenol doesn't help. He states they referred him to pain management but he hasn't seen anyone yet. He denies trauma, heavy lifting, or change in activity. States the pain in his neck is worse moving his head and radiates in the the back of both of his arms. He denies numbness/tingling. Denies weakness. States he also has pain between in his upper back that radiates around both sides of his ribs and comes into his chest. He states the pain is worse with walking or movement and he gets short of breathing with walking/movement. Denies abdominal pain, low back pain, leg pain. Denies lower extremity numbness or tingling. Denies accompanying nausea, vomiting. Denies any other recent illness. Pt seen during a time of high acuity and national emergency pandemic while wearing PPE. Home Medications Medication Instructions Recorded Confirmed Type aspirin 81 mg tablet,delayed 81 mg PO QAM 08/28/19 09/06/20 History release ezetimibe 10 mg tablet 10 mg PO QAM 08/28/19 09/06/20 History finasteride 5 mg tablet 5 mg PO PM 08/28/19 09/06/20 History furosemide 20 mg tablet (Lasix) 20 mg PO QAM 08/28/19 09/06/20 History glycerin (adult) 1 supp AZ DAILY 08/28/19 09/06/20 History hydralazine 50 mg tablet 50 mg PO QID 08/28/19 09/06/20 History hydrochlorothiazide 25 mg tablet 25 mg PO QAM 08/28/19 09/06/20 History methocarbamol 500 mg tablet 500 mg PO HS PRN 08/28/19 09/06/20 History nitroglycerin 0.2 mg/hr 1 patch TRANSDERMAL QAM 08/28/19 09/06/20 History transdermal 24 hour patch nitroglycerin 0.4 mg/hr 1 patch TRANSDERMAL QAM 08/28/19 09/06/20 History transdermal 24 hour patch ranolazine 500 mg tablet,extended 1,000 mg PO BID 08/28/19 09/06/20 History release,12 hr tamsulosin 0.4 mg capsule 0.4 mg PO HS 08/28/19 09/06/20 History warfarin 5 mg tablet 5 mg PO PM 08/28/19 09/06/20 History Olodaterol/Tiotrop 2 inh PO DAILY 09/06/20 09/06/20 History carboxymethylcellulose sodium 1 % 1 drp OPHTHALMIC (EYE) QID 09/06/20 09/06/20 History eye drops coenzyme Q10 200 mg capsule 200 mg PO DAILY 09/06/20 09/06/20 History fluticasone propionate 50 2 spray INTRANASAL DAILY 09/06/20 09/06/20 History mcg/actuation nasal spray,suspension lidocaine 5 % topical patch 1 patch TOPICAL DAILY 09/06/20 09/06/20 History nitroglycerin 0.3 mg sublingual 0.3 mg SUBLINGUAL UD PRN 09/06/20 09/06/20 History tablet pantoprazole 20 mg tablet,delayed 20 mg PO DAILY 09/06/20 09/06/20 History release potassium chloride 20 mEq 20 meq PO DAILY 09/06/20 09/06/20 History tablet,extended release tramadol 50 mg tablet 50 mg PO Q6H PRN 09/06/20 09/06/20 History triamcinolone acetonide 0.025 % 1 applic TOPICAL BID 09/06/20 09/06/20 History topical cream Allergies Allergy/AdvReac Type Severity Reaction Status Date / Time aspirin AdvReac Intermediate high doses Unverified 09/06/20 03:17 burn his stomach amlodipine AdvReac Unknown Verified 09/06/20 03:24 atorvastatin AdvReac Unknown Verified 09/06/20 03:24 ciprofloxacin AdvReac Unknown Verified 09/06/20 03:24 doxycycline AdvReac Unknown Verified 09/06/20 03:28 felodipine AdvReac Unknown Verified 09/06/20 03:20 fluvastatin AdvReac Muscle Pain Verified 09/06/20 03:23 gabapentin AdvReac Confusion Verified 09/06/20 03:23 hydralazine AdvReac Unknown Verified 09/06/20 03:20 hydrochlorothiazide AdvReac Unknown Verified 09/06/20 03:23 isosorbide AdvReac Unknown Verified 09/06/20 03:23 labetalol AdvReac Unknown Verified 09/06/20 03:27 levothyroxine AdvReac Unknown Verified 09/06/20 03:24 lisinopril AdvReac Chest Pain Verified 09/06/20 03:26 loratadine AdvReac Unknown Verified 09/06/20 03:26 losartan AdvReac Unknown Verified 09/06/20 03:26 methyldopa AdvReac Headache Verified 09/06/20 03:28 metoprolol AdvReac Unknown Verified 09/06/20 03:20 nifedipine AdvReac Unknown Verified 09/06/20 03:27 nitrofurantoin AdvReac Dizziness Verified 09/06/20 03:28 omeprazole AdvReac Muscle Pain Verified 09/06/20 03:18 simvastatin AdvReac Muscle Pain Verified 09/06/20 03:18 spironolactone AdvReac Nausea Verified 09/06/20 03:18 valsartan AdvReac Unknown Verified 09/06/20 03:18 Past Med/Surg History Medical History Anticoagulant long-term use CAD (coronary artery disease) History of tuberculosis HLD (hyperlipidemia) HTN (hypertension) Mitral regurgitation Surgical History H/O mechanical aortic valve replacement History of coronary artery bypass graft x 3 Hx of cholecystectomy Hx of rotator cuff surgery S/P coronary artery stent placement S/P lobectomy of lung Family History Other Heart disease Social History Smoking Status: Former smoker Tobacco Type: Cigarettes Number of Years Since Quit: 40; Second Hand Exposure: No; Hx Alcohol Use: No Hx Substance Use: No Preferred Language: Yakut Communication Ability: Effective 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 Beliefs That Will Affect Care: None Current Living Situation: Alone Other Information That Helps Us Care for You: No Feels Safe at Home: Yes Safety Concerns: Feels Safe At This Time Assistive Devices: Denture - Upper, Denture - Lower and Oxygen - Continuous Review of Systems A total of 10 systems reviewed and were otherwise negative All systems reviewed & are unremarkable except as noted in HPI & below Physical Exam Vital Signs Vital Signs - 24 hr 09/06/20 02:47 09/06/20 03:00 09/06/20 04:00 Temperature 37.4 C Temperature Source Oral Pulse Rate 109 H 97 H 102 H Pulse Rate from SpO2 Sensor 97 H 102 H Respiratory Rate 20 22 22 Respiratory Depth Normal Blood Pressure 119/72 152/81 H 132/78 Blood Pressure Mean 87 104 96 Pulse Oximetry 94 93 93 Oxygen Delivery Method Room Air Sepsis New/Unexplained Change in Mental Status N/A Sepsis Action Taken by Nursing No Action Required 09/06/20 04:30 09/06/20 05:00 09/06/20 05:30 Temperature Temperature Source Pulse Rate 96 H 95 H 87 Pulse Rate from SpO2 Sensor 95 H 94 H 87 Respiratory Rate 22 23 22 Respiratory Depth Blood Pressure 112/78 116/74 141/78 H Blood Pressure Mean 89 88 99 Pulse Oximetry 93 92 93 Oxygen Delivery Method Sepsis New/Unexplained Change in Mental Status Sepsis Action Taken by Nursing GENERAL: alert, well appearing, well nourished, no distress, non-toxic EYE EXAM: normal conjunctiva, PERRL and EOM's grossly intact OROPHARYNX: no exudate, no erythema, lips, buccal mucosa, and tongue normal and mucous membranes are moist NECK: supple, no nuchal rigidity, no adenopathy, inferior aspect of the cervical spine, slight pain noted by the patient with turning head side to side LUNGS: Clear to auscultation. Normal chest wall mechanics, no w/r/r HEART: no murmurs, S1 normal and S2 normal, well-healed vertical midline incision of the chest wall consistent with prior sternotomy ABDOMEN: abdomen soft, non-tender, normo-active bowel sounds, no masses, no rebound or guarding. BACK: Back is symmetrical on inspection and there is no deformity, no midline tenderness, no CVA tenderness. SKIN: no rashes and no bruising, no petechiae UPPER EXTREMITIES: upper extremities are grossly normal. FROM, nml pulses b/l. Normal cap refill. Sensation intact bilaterally. Strength 5/5. No evidence of trauma. LOWER EXTREMITIES: No pitting edema. FROM, nml pulses b/l. Sensation intact. NEURO EXAM: Normal sensorium, cranial nerves II-XII grossly intact, normal speech, no gross weakness of arms, no gross weakness of legs. No ataxia, gross sensation intact. Course Administered Medications Albuterol (Albut/Ipratrop 3mg/0.5mg Neb 3 Ml Vial) 3 ml NEB QIDR PENDING SALE TO [facility] Stop: 10/06/20 06:59 Last Admin: 09/07/20 15:33 Dose: 3 ml Documented by: [id number] Admin: 09/07/20 10:21 Dose: 3 ml Documented by: [id number] Admin: 09/07/20 07:10 Dose: 3 ml Documented by: [id number] Admin: 09/06/20 20:09 Dose: 3 ml Documented by: [id number] Admin: 09/06/20 15:30 Dose: 3 ml Documented by: [id number] Admin: 09/06/20 11:07 Dose: 3 ml Documented by: [id number] Admin: 09/06/20 08:07 Dose: 3 ml Documented by: [id number] Aspirin (Aspirin 81 Mg Ectab) 81 mg PO [facility] Stop: 10/06/20 08:59 Last Admin: 09/07/20 08:19 Dose: 81 mg Documented by: [id number] Admin: 09/06/20 08:55 Dose: 81 mg Documented by: [id number] Ezetimibe (Ezetimibe 10 Mg Tablet) 10 mg PO [facility] Stop: 10/06/20 08:59 Last Admin: 09/07/20 08:13 Dose: 10 mg Documented by: [id number] Admin: 09/06/20 08:55 Dose: 10 mg Documented by: [id number] Guaifenesin (Guaifenesin 600 Mg Tabcr) 600 mg PO Q12 [facility]END[facility] S[facility] TO [facility] Stop: 10/06/20 08:59 Last Admin: 09/07/20 08:23 Dose: 600 mg Documented by: [id number] Admin: 09/06/20 21:18 Dose: 600 mg Documented by: [id number] Admin: 09/06/20 08:55 Dose: 600 mg Documented by: [id number] Ceftriaxone Sodium 2,000 mg/ (Dextrose) 70 mls @ 100 mls/hr IV DAILY [facility]; Protocol Stop: 09/13/20 08:59 Last Infusion: 09/07/20 09:27 Dose: 0 mls/hr Documented by: [id number] Admin: 09/07/20 08:45 Dose: 100 mls/hr Documented by: [id number] Infusion: 09/06/20 09:37 Dose: 0 mls/hr Documented by: [id number] Admin: 09/06/20 08:55 Dose: 100 mls/hr Documented by: [id number] Azithromycin 500 mg/ Dextrose 255 mls @ 125 mls/hr IV DAILY [facility] Stop: 09/13/20 08:59 Last Infusion: 09/07/20 12:08 Dose: 0 mls/hr Documented by: [id number] Admin: 09/07/20 09:19 Dose: 124 mls/hr Documented by: [id number] Infusion: 09/06/20 10:43 Dose: 0 mls/hr Documented by: [id number] Admin: 09/06/20 08:55 Dose: 125 mls/hr Documented by: [id number] Dopamine HCl/Dextrose (Dopamine / D5w) 400 mg in 250 mls @ 8.447 mls/hr IV .Q24H [facility]; Protocol Stop: 10/07/20 12:44 Last Titration: 09/07/20 15:10 Dose: 2.5 mcg/kg/min, 8.4 mls/hr Documented by: [id number] Titration: 09/07/20 14:00 Dose: 5 mcg/kg/min, 16.9 mls/hr Documented by: [id number] Admin: 09/07/20 13:23 Dose: 10 mcg/kg/min, 33.8 mls/hr Documented by: [id number] Cosigned by: [id number] Furosemide 100 mg/ Dextrose 100 mls @ 1 mls/hr IV .Q24H [facility] Stop: 10/07/20 13:14 Last Admin: 09/07/20 13:23 Dose: 5 mg/hr, 5 mls/hr Documented by: [id number] Insulin Aspart (Insulin Aspart 100 Units/Ml 3 Ml Pen) 0 units SC Q4 [facility]; Protocol Stop: 10/07/20 14:59 Last Admin: 09/07/20 16:54 Dose: 11 units Documented by: [id number] Cosigned by: [id number] Admin: 09/07/20 15:13 Dose: 9 units Documented by: [id number] Cosigned by: [id number] Lidocaine (Lidocaine 5% 1 Patch) 1 patch TD DAILY [facility] Stop: 10/06/20 08:59 Last Admin: 09/07/20 07:23 Dose: Not Given Documented by: [id number] Admin: 09/06/20 08:54 Dose: Not Given Documented by: [id number] Miscellaneous ([Carboxymethylcellulose 1% Opth] Order Awaiting Action) 1 ea N/A QS [facility] Stop: 10/06/20 07:59 Last Admin: 09/07/20 16:00 Dose: Not Given Documented by: [id number] Admin: 09/07/20 08:48 Dose: Not Given Documented by: [id number] Admin: 09/06/20 23:54 Dose: Not Given Documented by: [id number] Admin: 09/06/20 14:07 Dose: Not Given Documented by: [id number] Admin: 09/06/20 08:49 Dose: Not Given Documented by: [id number] Miscellaneous (Remove Lidoderm Patch) 1 ea N/A DAILY@2100 [facility] Stop: 10/06/20 20:59 Last Admin: 09/06/20 21:22 Dose: Not Given Documented by: [id number] Pantoprazole Sodium (Pantoprazole 40 Mg Tab) 40 mg PO DAILY [facility] Stop: 10/06/20 08:59 Last Admin: 09/07/20 08:19 Dose: 40 mg Documented by: [id number] Admin: 09/06/20 08:54 Dose: 40 mg Documented by: [id number] Ranolazine (Ranolazine 500 Mg Er Tab) 1,000 mg PO BID [facility] Stop: 10/06/20 08:59 Last Admin: 09/07/20 08:13 Dose: 1,000 mg Documented by: [id number] Admin: 09/06/20 21:18 Dose: 1,000 mg Documented by: [id number] Admin: 09/06/20 08:53 Dose: 1,000 mg Documented by: [id number] Warfarin Sodium (Warfarin Sod 5 Mg Tab) 5 mg PO PM [facility] Stop: 10/06/20 20:59 Last Admin: 09/06/20 22:09 Dose: 5 mg Documented by: [id number] Discontinued Medications Carvedilol (Carvedilol 6.25 Mg Tab) 6.25 mg PO BID [facility]END[facility] TO [facility] Stop: 10/07/20 08:59 Last Admin: 09/07/20 10:39 Dose: 6.25 mg Documented by: [id number] Dopamine HCl/Dextrose (Dopamine 400mg / 250ml D5w) Confirm Administered Dose 400 mg IV .STK-MED ONE Stop: 09/07/20 11:18 Last Admin: 09/07/20 11:23 Dose: 5 mcg.per.kg Documented by: [id number] Dopamine HCl/Dextrose (Dopamine 400mg / 250ml D5w) Confirm Administered Dose 400 mg IV .STK-MED ONE Stop: 09/07/20 12:33 Last Admin: 09/07/20 12:44 Dose: 5 mcg.per.kg Documented by: [id number] Finasteride (Finasteride 5 Mg Tab) 5 mg PO PM PENDING SALE TO [facility] Stop: 10/06/20 20:59 Last Admin: 09/06/20 21:18 Dose: 5 mg Documented by: [id number] Furosemide (Furosemide 20 Mg Tab) 20 mg PO QAM [facility] Stop: 10/06/20 08:59 Last Admin: 09/06/20 08:55 Dose: 20 mg Documented by: [id number] Furosemide (Furosemide 40 Mg/4 Ml Vial) Confirm Administered Dose 40 mg IV .STK- MED ONE Stop: 09/07/20 08:27 Last Admin: 09/07/20 08:43 Dose: 40 mg Documented by: [id number] Furosemide (Furosemide 40 Mg/4 Ml Vial) Confirm Administered Dose 40 mg IV .STK- MED ONE Stop: 09/07/20 12:04 Last Admin: 09/07/20 12:09 Dose: 40 mg Documented by: [id number] Furosemide (Furosemide 40 Mg/4 Ml Vial) Confirm Administered Dose 80 mg IV .STK- MED ONE Stop: 09/07/20 12:39 Last Admin: 09/07/20 13:23 Dose: 60 mg Documented by: [id number] Glycerin (Glycerin Adult 12 Supp/Box Supp) 1 supp AZ DAILY PENDING SALE TO [facility] Stop: 10/06/20 08:59 Last Admin: 09/06/20 08:51 Dose: Not Given Documented by: [id number] Glycerin (Glycerin Adult 12 Supp/Box Supp) 1 supp [place] DAILY PENDING SALE TO [facility] Stop: 10/06/20 08:59 Last Admin: 09/07/20 08:46 Dose: Not Given Documented by: [id number] Hydralazine HCl (Hydralazine Tab 50 Mg Tab) 50 mg PO QID [facility] Stop: 10/06/20 08:59 Last Admin: 09/07/20 14:36 Dose: Not Given Documented by: [id number] Admin: 09/07/20 08:24 Dose: 50 mg Documented by: [id number] Admin: 09/06/20 21:18 Dose: 50 mg Documented by: [id number] Admin: 09/06/20 17:19 Dose: 50 mg Documented by: [id number] Admin: 09/06/20 12:10 Dose: 50 mg Documented by: [id number] Admin: 09/06/20 08:55 Dose: 50 mg Documented by: [id number] Acetaminophen (Ofirmev) 1,000 mg in 100 mls @ 400 mls/hr IV NOW STA Stop: 09/06/20 03:07 Last Infusion: 09/06/20 03:23 Dose: 0 mls/hr Documented by: [id number] Admin: 09/06/20 03:07 Dose: 400 mls/hr Documented by: [id number] Sodium Chloride (Nss) 500 mls @ 125 mls/hr IV .Q4H [facility] Stop: 10/06/20 02:59 Last Infusion: 09/06/20 07:09 Dose: 0 mls/hr Documented by: [id number] Admin: 09/06/20 03:07 Dose: 125 mls/hr Documented by: [id number] Methylprednisolone 40 mg/ (Syringe) 0.64 mls @ 1.5 mls/min IV Q8H [facility] Stop: 10/06/20 07:59 Last Admin: 09/06/20 08:55 Dose: 1.5 mls/min Documented by: [id number] Furosemide 40 mg/ Syringe 4 mls @ 4 mls/min IV NOW ONE Stop: 09/07/20 08:31 Last Admin: 09/07/20 08:44 Dose: Not Given Documented by: [id number] Methylprednisolone 125 mg/ (Syringe) 2 mls @ 1.5 mls/min IV NOW STA Stop: 09/07/20 08:32 Last Admin: 09/07/20 08:46 Dose: 1.5 mls/min Documented by: [id number] Methylprednisolone 80 mg/ (Syringe) 1.28 mls @ 1.5 mls/min IV Q8H [facility] Stop: 10/07/20 15:59 Last Admin: 09/07/20 15:13 Dose: 1.5 mls/min Documented by: [id number] Dopamine HCl/Dextrose (Dopamine / D5w) 400 mg in 250 mls @ 16.894 mls/hr IV .[id number] PENDING SALE TO [facility]; Protocol Stop: 10/07/20 11:29 Last Admin: 09/07/20 11:24 Dose: Not Given Documented by: [id number] Glucagon 5 mg/ Syringe 5 mls @ 1 mls/min IV 1145 ONE Stop: 09/07/20 11:49 Last Admin: 09/07/20 11:47 Dose: 1 mls/min Documented by: [id number] Furosemide 40 mg/ Syringe 4 mls @ 4 mls/min IV 1215 ONE Stop: 09/07/20 12:16 Last Admin: 09/07/20 12:09 Dose: Not Given Documented by: [id number] Insulin Aspart (Insulin Aspart 100 Units/Ml 3 Ml Pen) 0 units SC ACHS PENDING SALE TO [facility] Stop: 10/06/20 07:29 Last Admin: 09/07/20 14:56 Dose: Not Given Documented by: [id number] Admin: 09/07/20 08:48 Dose: Not Given Documented by: [id number] Cosigned by: [id number] Admin: 09/06/20 21:24 Dose: 2 units Documented by: [id number] Cosigned by: [id number] Admin: 09/06/20 17:18 Dose: 2 units Documented by: [id number] Cosigned by: [id number] Admin: 09/06/20 12:08 Dose: 3 units Documented by: [id number] Cosigned by: [id number] Admin: 09/06/20 10:41 Dose: Not Given Documented by: [id number] Cosigned by: [id number] Insulin Glargine (Insulin Glargine Solostar 100 Units/Ml 3 Ml Pen) 23 units SC NOW STA Stop: 09/07/20 14:56 Last Admin: 09/07/20 15:12 Dose: 23 units Documented by: [id number] Cosigned by: [id number] Ioversol (Optiray 320 125ml) 120 ml IV ONCE ONE Stop: 09/06/20 03:33 Last Admin: 09/06/20 03:32 Dose: 120 ml Documented by: [id number] Magnesium Sulfate/Dextrose (Magnesium Sulfate 1gm / D5w Bag) Confirm Administered Dose 1 gm IV .STK-MED ONE Stop: 09/07/20 13:02 Last Admin: 09/07/20 13:23 Dose: 1 gm Documented by: [id number] Miscellaneous (Remove Nitro-Dur Patch) 1 ea N/A DAILY@2100 PENDING SALE TO [facility] Stop: 10/06/20 20:59 Last Admin: 09/07/20 12:06 Dose: 1 ea Documented by: [id number] Admin: 09/06/20 21:22 Dose: Not Given Documented by: [id number] Nitroglycerin (Nitroglycerin 0.2 Mg/Hr Patch) [facility]: 10/06/20 08:59 Last Admin: 09/07/20 08:19 Dose: 1 patch Documented by: [id number] Admin: 09/06/20 08:54 Dose: 1 patch Documented by: [id number] Nitroglycerin (Nitroglycerin 0.4 Mg/Hr Patch) 1 patch TD [facility] Stop: 10/06/20 08:59 Last Admin: 09/07/20 08:14 Dose: 1 patch Documented by: [id number] Admin: 09/06/20 08:54 Dose: 1 patch Documented by: [id number] Nitroglycerin (Nitroglycerin Sl 0.4 Mg/Tab Tab) Confirm Administered Dose 0.4 mg .ROUTE .STK-MED ONE Stop: 09/07/20 08:10 Last Admin: 09/07/20 08:44 Dose: Not Given Documented by: [id number] Nitroglycerin (Nitroglycerin Sl 0.4 Mg/Tab Tab) 0.4 mg SL NOW STA Stop: 09/07/20 08:15 Last Admin: 09/07/20 08:43 Dose: 0.4 mg Documented by: [id number] Potassium Chloride (Potassium Chloride Crtab 20 Meq Tabcr) 20 meq PO DAILY [facility]ALE TO [facility] Stop: 10/06/20 08:59 Last Admin: 09/07/20 08:19 Dose: 20 meq Documented by: [id number] Admin: 09/06/20 08:53 Dose: 20 meq Documented by: [id number] Tamsulosin HCl (Tamsulosin Hcl 0.4 Mg Cap) 0.4 mg PO HS PEND[facility] SALE [facility] Stop: 10/06/20 20:59 Last Admin: 09/06/20 21:19 Dose: 0.4 mg Documented by: [id number] Tramadol HCl (Tramadol Hcl 50 Mg Tablet) 50 mg PO Q6H PRN PRN Reason: Moderate Pain Stop: 10/06/20 06:46 Last Admin: 09/07/20 06:13 Dose: 50 mg Documented by: [id number] Triamcinolone Acetonide (Triamcinolone Acet 0.025% Cr 15 Gm Tube) 1 appln TOP BID [facility] Stop: 10/06/20 08:59 Last Admin: 09/07/20 07:23 Dose: Not Given Documented by: [id number] Admin: 09/06/20 21:22 Dose: Not Given Documented by: [id number] Admin: 09/06/20 08:53 Dose: Not Given Documented by: [id number] Medical Decision Making Differential Diagnosis Cervical strain, fracture, cervical disc disease, lymphadenitis, meningitis, tumor, arterial dissection, thyroiditis, parotitis, mastoiditis, neurologic, cardiovascular, as well as other pathologies. Medical Records Attestation: I reviewed the patient's medical records. Home Medications Current Medication List: was personally reviewed by me Laboratory Data Attestation: I reviewed the patient's lab results. Result diagrams: 09/07/20 05:38 09/07/20 05:38 Lab Results 09/06/20 09/06/20 09/06/20 Range/Units 02:55 02:55 02:55 WBC 11.14 H (4.8-10.8) K/uL RBC 4.04 L (4.7-6.1) M/uL Hgb 11.7 L (14.0-18.0) g/dL Hct 34.5 L (42-52) % MCV 85.4 (80-100) fL MCH 29.0 (25-34) pg MCHC 33.9 (32-36) g/dL RDW Std Deviation 51.2 H (36.4-46.3) fL RDW Coeff of Jaclyn 16.4 H (11.5-14.5) % Plt Count 184 (130-400) K/uL MPV 9.8 (7.4-10.4) fL Immature Gran % (Auto) 0.3 % Neut % (Auto) 77.8 % Lymph % (Auto) 9.2 % Dundy % (Auto) 11.5 % Eos % (Auto) 1.0 % Baso % (Auto) 0.2 % Neut # (Auto) 8.68 H (1.4-6.5) K/uL Lymph # (Auto) 1.02 L (1.2-3.4) K/uL Dundy # (Auto) 1.28 H (0.11-0.59) K/uL Eos # (Auto) 0.11 (0-0.5) K/uL Baso # (Auto) 0.02 (0-0.2) K/uL Immature Gran # (Auto) 0.03 H (0.00-0.02) K/uL PT (9.0-12.0) Seconds INR (0.9-1.1) Sodium 136 (136-145) mmol/L Potassium 3.7 (3.5-5.1) mmol/L Chloride 103 (98-107) mmol/L Carbon Dioxide 25 (21-32) mmol/L Anion Gap 8.0 (3-11) BUN 16 (7-18) mg/dl Creatinine 0.96 (0.6-1.4) mg/dl Est Cr Clr Drug Dosing 62.7 ml/min Est GFR ( Amer) 83.8 ml/min Est GFR (Non-Af Amer) 72.3 ml/min BUN/Creatinine Ratio 16.4 (10-20) Glucose 165 H (70-99) mg/dl Calcium 8.9 (8.5-10.1) mg/dl Magnesium 2.1 (1.8-2.4) mg/dl Total Bilirubin 0.6 (0.2-1) mg/dl AST 27 (15-37) U/L ALT 30 (12-78) U/L Alkaline Phosphatase 70 (45-117) U/L Troponin I 0.076 H* (0-0.045) ng/ml NT-Pro-B Natriuret Pep 1728 (0-1800) pg/ml Total Protein 7.5 (6.4-8.2) gm/dl Albumin 3.3 L (3.4-5.0) gm/dl Globulin 4.2 H (2.5-4.0) gm/dl Albumin/Globulin Ratio 0.8 L (0.9-2) TSH 4.610 H (0.300-4.500) uIu/ml Free T4 1.33 (0.8-1.6) ng/dl Lyme Disease IgG Ab Negative (Negative) Lyme Disease IgM Ab Negative (Negative) COVID-19 Eval Order SARS-CoV-2 (PCR) (Negative) 09/06/20 09/06/20 09/06/20 Range/Units 02:55 04:02 04:02 WBC (4.8-10.8) K/uL RBC (4.7-6.1) M/uL Hgb (14.0-18.0) g/dL Hct (42-52) % MCV (80-100) fL MCH (25-34) pg MCHC (32-36) g/dL RDW Std Deviation (36.4-46.3) fL RDW Coeff of Jaclyn (11.5-14.5) % Plt Count (130-400) K/uL MPV (7.4-10.4) fL Immature Gran % (Auto) % Neut % (Auto) % Lymph % (Auto) % Dundy % (Auto) % Eos % (Auto) % Baso % (Auto) % Neut # (Auto) (1.4-6.5) K/uL Lymph # (Auto) (1.2-3.4) K/uL Dundy # (Auto) (0.11-0.59) K/uL Eos # (Auto) (0-0.5) K/uL Baso # (Auto) (0-0.2) K/uL Immature Gran # (Auto) (0.00-0.02) K/uL PT 31.9 H (9.0-12.0) Seconds INR 3.5 H (0.9-1.1) Sodium (136-145) mmol/L Potassium (3.5-5.1) mmol/L Chloride (98-107) mmol/L Carbon Dioxide (21-32) mmol/L Anion Gap (3-11) BUN (7-18) mg/dl Creatinine (0.6-1.4) mg/dl Est Cr Clr Drug Dosing ml/min Est GFR ( Amer) ml/min Est GFR (Non-Af Amer) ml/min BUN/Creatinine Ratio (10-20) Glucose (70-99) mg/dl Calcium (8.5-10.1) mg/dl Magnesium (1.8-2.4) mg/dl Total Bilirubin (0.2-1) mg/dl AST (15-37) U/L ALT (12-78) U/L Alkaline Phosphatase (45-117) U/L Troponin I (0-0.045) ng/ml NT-Pro-B Natriuret Pep (0-1800) pg/ml Total Protein (6.4-8.2) gm/dl Albumin (3.4-5.0) gm/dl Globulin (2.5-4.0) gm/dl Albumin/Globulin Ratio (0.9-2) TSH (0.300-4.500) uIu/ml Free T4 (0.8-1.6) ng/dl Lyme Disease IgG Ab (Negative) Lyme Disease IgM Ab (Negative) COVID-19 Eval Order Covid19 at [facility] SARS-CoV-2 (PCR) NEGATIVE (Negative) Imaging Data Radiologist's Impression: CT C-spine: Comparison: None. No acute fracture. Normal alignment. Diffuse osteopenia/osteoporosis. 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 Degenerative disc disease at C6-C7. No significant central canal stenosis. Calcified atherosclerotic disease throughout the bilateral carotid ar teries. Radiologist: Michaela Schmid MD CT T-spine: Comparison: None. No evidence of fracture or malalignment. Diffuse osteoporosis/osteopenia with degenerative disease of the spine. Normal kyphosis. No scoliosis. Intrathoracic structures described in detail on the accompanying CT chest report . Radiologist: Michaela Schmid MD CTA chest: Diffuse multifocal groundglass opacities demonstrated compatible with multifocal pneumonitis. This is nonspecific and may be associated with viral etiology including COVID-19, bacterial or idiopathic. There are multiple subpleural areas of interstitial prominence with honeycombing suggestive of underlying pulmonary fibrosis. Normal cardiac size with coronary artery calcifications. No pulmonary embolus. No pleural effusion or pneumothorax. Several borderline enlarged lymph nodes within the mediastinum largest in the precarinal region measuring 2.2 x 1.3 cm most compatible with inflammatory response. Status post cholecystectomy otherwise unremarkable upper abdomen. Degenerative disease of the spine. CTA otherangio dissection, chest with/without: Calcified atherosclerotic disease of aorta. Mild aneurysmal dilatation of the ascending aorta averaging approximately 5.1 x 4.4 cm. Descending thoracic aorta maintains normal size. No dissection. Radiologist: Michaela Schmid MD ECG Data Attestation: I personally reviewed and interpreted this ECG as follows: Indication: + chest pain Rate (beats per minute): 105 Rhythm: + normal sinus ECG Intervals/blocks: + Right Bundle branch block, + IVCD and + Prolonged QT ECG [place]: + Left axis deviation ECG ST segments: + Nonspecific ST abnormalities Comparison ECG Date: from (08/28/2019) Change: the following changes noted (Worsening ST depression) MDM Narrative This is an 85-year-old male who presents complaining of generalized pain. Upon additional evaluation patient feels his pain begins in his neck and back and radiates down his arms as well as around into his chest. Patient states is been going on for several weeks. Patient is anticoagulated on Coumadin. Denies any recent trauma or change in activity. No recent illness or other medication changes. Denies any recent cough or URI symptoms. Patient states he was seen by the [facility] and had outpatient imaging although he does not know the results. Patient has no neurologic deficits. Denies headaches and dizziness. Patient was afebrile and hemodynamically stable. Patient improved with Tylenol and dose of Toradol. Patient sent for imaging as a precaution. No acute vascular or spine findings on imaging. Patient was found to have a mildly elevated troponin. No acute EKG changes. No chest pain on repeat exam. Patient does have history of coronary artery disease and prior CABG. Due to history and risk factors and elevated troponin, case discussed with hospitalist for additional evaluation and management. INR therapeutic. Patient does take ASA daily. Other labs reassuring. CT with possible pneumonitis however patient has not had respiratory symptoms. His reported shortness of breath only seems to be with exertion and I suspect would be more cardiac in origin as opposed to infectious. Unclear if back pain related to cardiac etiology also. Will defer cultures and antibiotics to hospitalist discretion. Covid swab pending. Pain improved with fentanyl. No acute vascular etiology. Hopefully results of outpatient MRI could be obtained during the day. An order was placed for continuous cardiac monitoring. The monitor shows a rate of _98_ with _normal sinus_ rhythm. Impression & Plan Back pain, Elevated troponin, Neck pain, Chest pain Discharge Plan Visit Data Chief Complaint: Pain (Generalized) Stated Complaint: PAIN ALL OVER X SEVERAL WKS./ TINGLING DOWN ARMS ED Provider: Ila Briceno Discharge Problem: Back pain, Elevated troponin, Neck pain, Chest pain Patient Disposition: Admitted As Inpatient Discharge Instructions Interventions: ED Discharge Assessment Last Done: 09/06/20 06:26 Discharge Problem: Back pain Qualifiers: Back pain location: thoracic back pain Chronicity: acute Back pain laterality: bilateral Qualified Code(s): M54.6 - Pain in thoracic spine Chest pain Qualifiers: Chest pain type: unspecified Qualified Code(s): R07.9 - Chest pain, unspecified
[2020-09-06] MEDS ORDERED: SODIUM CHLORIDE 0.9% 500 ML IV SCH (03:00)
[2020-09-06 03:07] LABS: Basophils # (auto) 0.02 K/uL (0-0.2); Basophils % (auto) 0.2 %; Eosinophils # (auto) 0.11 K/uL (0-0.5); Hematocrit (blood only) 34.5 % (42-52); Hemoglobin 11.7 g/dL (14.0-18.0); Immature Granulocytes # (auto) 0.03 K/uL (0.00-0.02); Immature Granulocytes % (auto) 0.3 %; Lymphocytes # (auto) 1.02 K/uL (1.2-3.4); Lymphocytes % (auto) 9.2 %; Mean Corpuscular Hgb Conc 33.9 g/dL (32-36); Mean Corpuscular Volume 85.4 fL (80-100); Mean Platelet Volume 9.8 fL (7.4-10.4); Monocytes # (auto) 1.28 K/uL (0.11-0.59); Monocytes % (auto) 11.5 %; Neutrophils # (auto) 8.68 K/uL (1.4-6.5); Neutrophils % (auto) 77.8 %; Platelet Count 184 K/uL (130-400); RDW Coefficient of Variation 16.4 % (11.5-14.5); RDW Standard Deviation 51.2 fL (36.4-46.3); Red Blood Count 4.04 M/uL (4.7-6.1); White Blood Count 11.14 K/uL (4.8-10.8)
[2020-09-06 03:28] LABS: Albumin Level 3.3 gm/dl (3.4-5.0); BUN Creatinine Ratio 16.4 (10-20); Calcium 8.9 mg/dl (8.5-10.1); Creatinine Clr Calc Pharmacy 62.7 ml/min; Est GFR (African American) 83.8 ml/min; Est GFR (Non-African American) 72.3 ml/min; INR 3.5 (0.9-1.1); Magnesium 2.1 mg/dl (1.8-2.4); Potassium 3.7 mmol/L (3.5-5.1); Prothrombin Time 31.9 Seconds (9.0-12.0)
[2020-09-06] MEDS ORDERED: OPTIRAY 320 125ml IV ONE (03:32)
[2020-09-06 03:47] LABS: Albumin Globulin Ratio 0.8 (0.9-2); Bilirubin,Total 0.6 mg/dl (0.2-1); Globulin 4.2 gm/dl (2.5-4.0); Thyroid Stimulating Hormone 4.61 uIu/ml (0.300-4.500); Total Protein 7.5 gm/dl (6.4-8.2); Troponin I 0.076 ng/ml (0-0.045)
[2020-09-06 03:53] LABS: Lyme Ab IgG w/WB Rflx Negative (Negative); Lyme Ab IgM w/WB Rflx Negative (Negative)
[2020-09-06 04:00] LABS: T4 Free Thyroxine 1.33 ng/dl (0.8-1.6)
--- NOTE | 2020-09-06 05:55 | History & Physical Report ---
Date of Service September 06, 2020 Assessment & Plan (1) Multifocal pneumonia: Plan: Mr. Echavarria is an 85 yo gentleman who presented for generalized pain and dyspnea on exertion, found to have multifocal pna - CT chest showing multifocal ground glass opacities - WBC mildly elevated to 11 - sputum culture + gram stain - Azithromycin and Ceftriaxone - Duo Nebs qid scheduled + Q2h prn - IV solumedrol 40mg q8 - guanifesin 600mg BID - supplemental O2 as needed - trend CBC (2) Pulmonary fibrosis: Plan: - noted on CT chest - per patient, no known exposure to asbestos or beryllium - HIM record request from [place] (3) Elevated troponin: Plan: - trop at 0.076 on admission - ekg with non-specific st segment abnormalities - likely secondary to type II VA (demand-supply mismatch) - trend trop serial levels - echo ordered - monitoring and evaluation advisor (4) CAD (coronary artery disease): Plan: - history of CABD x 3 and PCI x 5 - HbA1c ordered - continue home aspirin, zetia and ranalozine - patient has beta cheo intolerance (5) HLD (hyperlipidemia): Plan: - continue home ASA and zetia - apparently statin intolerant (6) HTN (hypertension): Plan: - continue home HCTZ (7) H/O mechanical aortic valve replacement: Plan: - on chronic anticoagulation with coumadin - INR at goal at 3.5 - trend INR DVT ppx: On coumadin Diet: DM II, Heart healthy Code: DNR/DNI, I discussed with patient Dispo: PCU/tele History of Present Illness Primary Care Provider: Floridalma Waldron Mr. Echavarria is an 85 yo M with a PMHx of CAD s/p CAGB x 3 and PCI x 5 who presented for evaluation of generalized pain and progressive dyspnea on exertion. He reports ongoing generalized pain over the past several weeks; last night, he could not get comfortable enough to sleep, which ultimately prompted him to seek medical attention. He cannot articulate the exact nature of of his pain. He does state that today when walking to his car he experienced a pain in his mid back that wrapped around to his chest. He was short of breath at the same time. He does have underlying lung disease - he has a history of tuberculosis, for which he apparently had two partial lobectomies. He is not on any baseline oxygen. Social Hx: Lives alone, has a sister who lives nearby. Most of his medical care is at the [place]. Has not had any alcohol in several years. He did smoke for ~ 30 years, but quit back in 1979. To his knowledge, he was not exposure to any industrial toxin, such as asbestos or beryllium. In the ED, he was afebrile with mild tachycardia (HR 109 bpm), normal BP and RR, O2 sat 93 or above on room air. His WBC was mildly elevated to 11, Hgb mildly low at 11.7. MCV at 85. Electrolytes, kidney and liver function WNL. Trop was elevated to 0.07. BNP not elevated. TSH mildly elevated to 4.6. Lyme neg. COVID neg. EKG showing sinus tachycardia with a RBBB, a prolonged QTc, left axis deviation and non-specific ST segment abnormalities. CT of cervical and thoracic spine show evidence of arthritis, but no acute changes. Chest CTA showing no evidence of a PE, but did show underlying pulmonary fibrosis with multifocal ground glass opacities and mediastinal LAD, thought to be reactive (per STAT RAD). He was given 1/2 liter bolus of NSS, Tylenol and fentnyl. Allergies Allergy/AdvReac Type Severity Reaction Status Date / Time aspirin AdvReac Intermediate high doses Unverified 09/06/20 03:17 burn his stomach amlodipine AdvReac Unknown Verified 09/06/20 03:24 atorvastatin AdvReac Unknown Verified 09/06/20 03:24 ciprofloxacin AdvReac Unknown Verified 09/06/20 03:24 doxycycline AdvReac Unknown Verified 09/06/20 03:28 felodipine AdvReac Unknown Verified 09/06/20 03:20 fluvastatin AdvReac Muscle Pain Verified 09/06/20 03:23 gabapentin AdvReac Confusion Verified 09/06/20 03:23 hydralazine AdvReac Unknown Verified 09/06/20 03:20 hydrochlorothiazide AdvReac Unknown Verified 09/06/20 03:23 isosorbide AdvReac Unknown Verified 09/06/20 03:23 labetalol AdvReac Unknown Verified 09/06/20 03:27 levothyroxine AdvReac Unknown Verified 09/06/20 03:24 lisinopril AdvReac Chest Pain Verified 09/06/20 03:26 loratadine AdvReac Unknown Verified 09/06/20 03:26 losartan AdvReac Unknown Verified 09/06/20 03:26 methyldopa AdvReac Headache Verified 09/06/20 03:28 metoprolol AdvReac Unknown Verified 09/06/20 03:20 nifedipine AdvReac Unknown Verified 09/06/20 03:27 nitrofurantoin AdvReac Dizziness Verified 09/06/20 03:28 omeprazole AdvReac Muscle Pain Verified 09/06/20 03:18 simvastatin AdvReac Muscle Pain Verified 09/06/20 03:18 spironolactone AdvReac Nausea Verified 09/06/20 03:18 valsartan AdvReac Unknown Verified 09/06/20 03:18 Home Medications Medication Instructions Recorded Confirmed Type aspirin 81 mg tablet,delayed 81 mg PO QAM 08/28/19 09/06/20 History release ezetimibe 10 mg tablet 10 mg PO QAM 08/28/19 09/06/20 History finasteride 5 mg tablet 5 mg PO PM 08/28/19 09/06/20 History furosemide 20 mg tablet (Lasix) 20 mg PO QAM 08/28/19 09/06/20 History glycerin (adult) 1 supp UT DAILY 08/28/19 09/06/20 History hydralazine 50 mg tablet 50 mg PO QID 08/28/19 09/06/20 History hydrochlorothiazide 25 mg tablet 25 mg PO QAM 08/28/19 09/06/20 History methocarbamol 500 mg tablet 500 mg PO HS PRN 08/28/19 09/06/20 History nitroglycerin 0.2 mg/hr 1 patch TRANSDERMAL QAM 08/28/19 09/06/20 History transdermal 24 hour patch nitroglycerin 0.4 mg/hr 1 patch TRANSDERMAL QAM 08/28/19 09/06/20 History transdermal 24 hour patch ranolazine 500 mg tablet,extended 1,000 mg PO BID 08/28/19 09/06/20 History release,12 hr tamsulosin 0.4 mg capsule 0.4 mg PO HS 08/28/19 09/06/20 History warfarin 5 mg tablet 5 mg PO PM 08/28/19 09/06/20 History Olodaterol/Tiotrop 2 inh PO DAILY 09/06/20 09/06/20 History carboxymethylcellulose sodium 1 % 1 drp OPHTHALMIC (EYE) QID 09/06/20 09/06/20 History eye drops coenzyme Q10 200 mg capsule 200 mg PO DAILY 09/06/20 09/06/20 History fluticasone propionate 50 2 spray INTRANASAL DAILY 09/06/20 09/06/20 History mcg/actuation nasal spray,suspension lidocaine 5 % topical patch 1 patch TOPICAL DAILY 09/06/20 09/06/20 History nitroglycerin 0.3 mg sublingual 0.3 mg SUBLINGUAL UD PRN 09/06/20 09/06/20 History tablet pantoprazole 20 mg tablet,delayed 20 mg PO DAILY 09/06/20 09/06/20 History release potassium chloride 20 mEq 20 meq PO DAILY 09/06/20 09/06/20 History tablet,extended release tramadol 50 mg tablet 50 mg PO Q6H PRN 09/06/20 09/06/20 History triamcinolone acetonide 0.025 % 1 applic TOPICAL BID 09/06/20 09/06/20 History topical cream Past Med/Surg History Medical History Anticoagulant long-term use CAD (coronary artery disease) History of tuberculosis HLD (hyperlipidemia) HTN (hypertension) Mitral regurgitation Surgical History H/O mechanical aortic valve replacement History of coronary artery bypass graft x 3 Hx of cholecystectomy Hx of rotator cuff surgery S/P coronary artery stent placement S/P lobectomy of lung Family History Other Heart disease Social History Smoking Status: Former smoker Tobacco Type: Cigarettes Number of Years Since Quit: 40; Second Hand Exposure: No; Hx Alcohol Use: No Hx Substance Use: No Preferred Language: Algerian Communication Ability: Effective 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 Beliefs That Will Affect Care: None Current Living Situation: Alone Other Information That Helps Us Care for You: No Feels Safe at Home: Yes Safety Concerns: Feels Safe At This Time Assistive Devices: Denture - Upper, Denture - Lower and Oxygen - Continuous Review of Systems Review of Systems: as per HPI Physical Exam Constitutional: WD/WN, vitals as above + obese and cooperative; no acute distress Eyes: + anicteric sclerae ENMT: external ear and nose normal, oropharynx normal Neck: trachea midline Respiratory: normal respiratory effort; no respiratory distress, no labored breathing, no cough and not tachypneic Auscultation: + crackles (fine, diffusely throughout lung hinojosa ); no wheezes Cardiovascular: Rate/Rhythm: regular rate and regular rhythm Heart Sounds: normal S1, normal S2 and + click (systolic) Extremities: no pedal edema Gastrointestinal (Abdomen): Inspection/Auscultation: + abdomen distended and normal bowel sounds Percussion/Palpation: abdomen soft; abdomen nontender, no guarding and no hepatosplenomegaly Musculoskeletal: Head/Neck/Chest: normocephalic and head atraumatic Skin: no rashes, warm and dry Psychiatric: A+Ox3, euthymic affect Results & Data Results & Data ([facility]) Vital Signs (Past 12 Hours) Vital Signs Temp Pulse Resp BP Pulse Ox 09/06/20 04:30 96 H 22 112/78 93 09/06/20 04:00 102 H 22 132/78 93 09/06/20 03:00 97 H 22 152/81 H 93 09/06/20 02:47 37.4 C 109 H 20 119/72 94 Supervising Physician Co-Signing Physician Notes Attending addendum: I have physically seen this patient, have supervised the medical residents activities, and agree with the H&P unless as otherwise noted. Assessment and Plan: Multifocal pneumonia/underlying pulmonary fibrosis- Methylprednisolone 40 mg IV every 8 hours Ceftriaxone 1 g IV daily Azithromycin 500 mg IV daily Duonebs every 4 hours while awake and every 2 hours when necessary. Guaifenesin extended release 600 mg p.o. twice daily Follow sputum culture Gram stain Request records from [place] to assess underlying etiologies of pulmonary fibrosis Elevated troponin/CAD/hypertension/CABG x3 and PCI x5/valve replacement/hypertension- The patient will be admitted to telemetry for serial cardiac enzymes, serial EKG's, cardiac rhythm monitoring and a 2-D echocardiogram with Dopplers. Continue aspirin, ranolazine, warfarin, HCTZ Intolerance of beta-blockers Consult cardiology Remaining orders and notations as noted Resident Activity Tracking Resident Involvement: Resident Care Provided Care Provided: Adult [facility]
[2020-09-06] MEDS ORDERED: DEXTROSE 50% 50 ML SYRINGE IV PRN (06:47)
[2020-09-06] MEDS ORDERED: GLUCOSE 10 TABS/TUBE PO PRN (06:47)
[2020-09-06] MEDS ORDERED: traMADol HCL 50 MG TABLET PO PRN (06:47)
[2020-09-06] MEDS ORDERED: GLUCOSE 40% GEL 15 GM TUBE PO PRN (06:47)
[2020-09-06] MEDS ORDERED: GLUCAGON FOR INJ 1 MG VIAL SQ PRN (06:47)
[2020-09-06] MEDS ORDERED: METHOCARBAMOL 500 MG TABLET PO PRN (06:47)
[2020-09-06] MEDS ORDERED: ONDANSETRON INJ 2 MG/ML 2 ML VIAL IV PRN (06:47)
[2020-09-06] MEDS ORDERED: CARBOHYDRATES FOR HYPOGLYCEMIA PO PRN (06:47)
[2020-09-06] MEDS ORDERED: ACETAMINOPHEN 325 MG TAB PO PRN (06:47)
--- NOTE | 2020-09-06 07:22 | CT Scan Report ---
CT OF THE THORACIC SPINE CLINICAL HISTORY: Back pain. COMPARISON STUDY: No previous studies for comparison. TECHNIQUE: Helical axial images of the thoracic spine were obtained. Sagittal and coronal reconstru ctions were viewed. Automated exposure control was utilized for the study. A dose lowering techniqu e was utilized adhering to the principles of ALARA. FINDINGS: Please note that the chest CT will be reported separately. Alignment of the thoracic spine is anatomic. No acute fracture is present. Vertebral body heights are maintained. No osseous lesions are identified by CT. There is mild disc space narrowing and osteophytosis within the thoracic spine. Chest CT better depicted cardiomegaly, evidence for interstitial lung disease with superimposed air space opacities within the lungs. IMPRESSION: No acute thoracic spine fracture or subluxation. ACT 112: Negative or not required by law. Electronically signed by: Yovanny Lowe M.D. 09/06/2020 7:21 AM
[2020-09-06] MEDS ORDERED: methylPREDNISolone 40 MG in SYRINGE 0 ML IV SCH (08:00)
--- NOTE | 2020-09-06 08:01 | Electrocardiogram Report ---
Test Reason : Blood Pressure : / mmHG Vent. Rate : 105 BPM Atrial Rate : 108 BPM P-R Int : 000 ms QRS Dur : 194 ms QT Int : 424 ms P-R-T Axes : 000 -80 084 degrees QTc Int : 560 ms Probable Sinus tachycardia with 1st degree A-V block Left axis deviation Right bundle branch block Left ventricular hypertrophy with repolarization abnormality Abnormal ECG When compared with ECG of 28-AUG-2019 10:19, HR has increased by 32 bpm Otherwise no significant change Confirmed by Eliecer Herring ([id number]) on 09/06/2020 8:01:13 AM Referred By: REFERRED SELF Confirmed By:Eliecer Herring
[2020-09-06] MEDS: ALBUT/IPRATROP 3MG/0.5MG NEB 3 ML VIAL NEB SCH ×4 (08:07→20:09)
--- NOTE | 2020-09-06 08:48 | CT Scan Report ---
CT OF THE CERVICAL SPINE CLINICAL HISTORY: pain in neck and b/l UE COMPARISON STUDY: No previous studies for comparison. CT DOSE: 445.13 mGycm TECHNIQUE: CT scan of the cervical spine was performed from the skull base to the thoracic inlet. Delphine ges are reviewed in the axial, sagittal, and coronal planes. IV contrast was not administered for thi s examination. A dose lowering technique was utilized adhering to the principles of ALARA. FINDINGS: The visualized portions of the lung apices reveal no evidence of pneumothorax. The prevertebral soft tissues are normal. No acute fracture or traumatic malalignment is seen.. Minimal anterolisthesis of C4 on C5 is seen. Vertebral body heights are maintained. Intervertebral disc space narrowing at C6-C7 with anterior and posterior osteophytes are seen. Minimal central canal stenosis is seen at the C6-7 level No significant neural foraminal stenosis is demonstrated. IMPRESSION: 1. No acute fracture or traumatic malalignment. 2. Mild degenerative changes as detailed above. ACT 112: Negative or not required by law. The above report was generated using voice recognition software. It may contain grammatical, syntax o r spelling errors. Electronically signed by: Maribel Geiger DO 09/06/2020 8:47 AM
[2020-09-06] MEDS: POTASSIUM CHLORIDE CRTAB 20 MEQ TABCR PO SCH (08:53)
[2020-09-06] MEDS: TRIAMCINOLONE ACET 0.025% CR 15 GM TUBE TOP SCH ×2 (08:53→21:22)
[2020-09-06] MEDS: RANOLAZINE 500 MG ER TAB PO SCH ×2 (08:53→21:18)
[2020-09-06] MEDS: NITROGLYCERIN 0.2 MG/HR PATCH TD SCH (08:54)
[2020-09-06] MEDS: LIDOCAINE 5% 1 PATCH TD SCH (08:54)
[2020-09-06] MEDS: NITROGLYCERIN 0.4 MG/HR PATCH TD SCH (08:54)
[2020-09-06] MEDS: PANTOprazole 40 MG TAB PO SCH (08:54)
[2020-09-06] MEDS: AZITHROMYCIN 500 MG in DEXTROSE 5% 250 ML IV SCH (08:55)
[2020-09-06] MEDS: ASPIRIN 81 MG ECTAB PO SCH (08:55)
[2020-09-06] MEDS: guaiFENesin 600 MG TABCR PO SCH ×2 (08:55→21:18)
[2020-09-06] MEDS: hydrALAZINE TAB 50 MG TAB PO SCH ×4 (08:55→21:18)
[2020-09-06] MEDS: EZETIMIBE 10 MG TABLET PO SCH (08:55)
[2020-09-06] MEDS: cefTRIAXone SODIUM 2,000 MG in DEXTROSE 5% 50 ML IV SCH (08:55)
[2020-09-06] MEDS ORDERED: NON-FORMULARY MEDICATION (Coenzyme Q10 200 mg Capsule) PO SCH (09:00)
[2020-09-06] MEDS ORDERED: FUROSEMIDE 20 MG TAB PO SCH (09:00)
[2020-09-06] MEDS ORDERED: GLYCERIN ADULT 12 SUPP/BOX SUPP PR SCH (09:00)
--- NOTE | 2020-09-06 09:08 | CT Scan Report ---
CT ANGIOGRAM OF THE CHEST COMBO CLINICAL HISTORY: Chest pain. Back pain. COMPARISON STUDY: None TECHNIQUE: Before and following the IV administration of 120 cc of Optiray, CT angiogram of the chest was performed from the thoracic inlet to the upper abdomen utilizing the dissection protocol. Images are reviewed in the axial, sagittal, and coronal planes. 3-D MIPS images are created and assessed. I V contrast was administered without complication. A dose lowering technique was utilized adhering to the principles of ALARA. CT DOSE: 997.24 mGycm FINDINGS: There is adequate opacification within the aortic arch. Ectasia of ascending aorta is seen with diameter measuring 4.7 cm. Normal size of the descending aorta measuring 2.9 cm. No evidence of focal hematoma or dissection is seen. Multiple partial calcified plaques are seen with in aortic wall with minimal luminal irregularity. Mildly dilated main pulmonary artery measuring 3.0 cm in diameter. Thyroid: Imaged portions of the thyroid gland are normal in size and attenuation. Normal esophagus. Heart: Four-chamber cardiomegaly seen. No evidence of pericardial effusion. Prosthetic aortic valve i s demonstrated. Severe calcifications of the [place] coronary arteries. Status post CABG. There is no axillary, supra clavicle or internal mammary lymphadenopathy. Few mediastinal lymph nodes are seen and measure up to 1.2 cm in short axis in lower precarinal region. Opacified normal caliber bronchial arteries are seen. Tracheobronchial tree is patent. Patchy peripheral areas of architectural distortion associated with mild septal thickening, no defini te traction bronchiectasis and possible honeycombing are seen. Also there are patchy areas of septal thickening associated with groundglass attenuation is seen with in bilateral lower lobes and in the lingula. Predominant distribution of fibrotic changes are within bilateral lower lobes however left upper lobe is also involved. No pleural effusion is seen. No definite large pulmonary nodules are seen however evaluation for pulmonary nodules is difficult du e to widespread opacities. Upper abdomen: Partially visualized upper abdominal viscera is within normal limits. Skeletal structures: Mild multilevel degenerative changes of the spine. Sternotomy changes are seen.. IMPRESSION: 1. No evidence of aortic dissection or significant dilatation. Ectasia of ascending aorta. There is no aortic wall hematoma is seen. 2. Four-chamber cardiomegaly. Status post CABG. Atherosclerosis. Prosthetic aortic valve. 3. Interstitial lung disease, non-UIP pattern. Possibly superimposed infiltrates within bilateral lower lobes and left upper lobe. Short-term follow-up in 4-6 weeks is recommended to document improve ment/resolution. 4. Mildly dilated pulmonary artery which could be seen in pulmonary hypertension. 5. The rest of findings as above. ACT 112: Negative or not required by law. The above report was generated using voice recognition software. It may contain grammatical, syntax o r spelling errors. Electronically signed by: Maribel Geiger DO 09/06/2020 9:06 AM
[2020-09-06] MEDS: INSULIN ASPART 100 UNITS/ML 3 ML PEN SC SCH ×4 (10:41→21:24)
--- NOTE | 2020-09-06 15:01 | Communication Note ---
Date of Service: September 06, 2020 Mr. Cho is an 85-year-old white male hospitalized in the application systems administrator hours for multilobar pneumonia and NSTEMI. He has a significant cardiac history. He follows the [facility]. He hasn't felt well for approximately 1 month. Has had body aches, back pain, and a productive cough that is blood-tinged. Upon walking to his car yesterday, he had dyspnea on exertion with increasing pain in his back that radiated around to the chest. This prompted his evaluation into the ED. There he was found to be hemodynamically stable. He was afebrile and not hypoxi c. He had a mildly elevated white count of 11.14. Metabolic panel was essentially unremarkable. INR was 3.5 (metallic aortic valve). CT of the chest showed patchy infiltrates in the bilateral lower lobes and lingula. Troponin was elevated at 0.76 with a follow-up troponin of 0.45. He does have some T wave inversion in the anterior septal leads which is a change from 2020. Follows cardiology at the [facility]. Last stress test was over a year ago. Currently, patient is resting comfortably in his hospital bed. He denies any back pain at the present and is not short of breath at rest. General: Resting comfortably in his hospital bed. Does not appear ill or toxic Neck: No JVD. Negative hepatojugular reflex Cardiac: RRR with 1/6 to 2/6 JENNI. Metallic heart sound noted Lungs: Diminished with crackles at the bases. Positive egophony at the right base Abdomen: Normoactive X4. Soft and nontender in all quadrants. Extremities: No peripheral clubbing cyanosis or edema Neuro: A&O X4 cranial nerves II through XII are grossly intact no focal neuro deficits Skin: No obvious skin lesions or rashes Labs and imaging reviewed White count 11.14 with no shift Troponin 0 0.076 -> 0.45 Covid PCR: Negative CT of the chest: Patchy areas of septal thickening with groundglass attenuation in the bilateral lower lobes and lingula EKG: Sinus tachycardia 105 bpm. T wave inversion in the inferior septal leads which is a change from previous EKG A/P: 1. Multilobar pneumonia 2. NSTEMI Chronic medical conditions: 1. CAD 2. Aortic valve disease s/p AVRmetallic valve 3. Chronic Coumadin therapy 4. HTN 5. Pulmonary fibrosis 6. HLD * Given ongoing symptoms of "feeling ill" X weeks, a productive cough with blood-tinged sputum along with his mildly elevated white blood cell count, likely with community-acquired pneumonia. Elevated troponin presumed type II event from supply demand ischemia * Continue empiric antibiotic therapy (azithromycin/Rocephin) and mucolytic agents and nebulized treatments as needed * Blood cultures/sputum cultures ordered * Suspect NSTEMI type II event from supply demand ischemia. Continue antiplatelet therapy, Coumadin, topical paste as ordered. Reported/listed allergy to multiple different beta-blockers. Patient uncertain.? Bradycardia. Will hold for now * Continue to cycle out troponin until it peaks * Add echocardiogram to his LV function * Follow-up EKG in a.m. * Given EKG changes, consult cardiology. Appreciate recommendations. * Plan of care to be discussed with Dr. Hooper. Further orders as warranted.
--- NOTE | 2020-09-06 19:19 | Cardiology Consultation ---
Date of Consultation September 06, 2020 Assessment & Plan (1) Non-ST elevation (NSTEMI) myocardial infarction: (2) CAD (coronary artery disease): (3) History of coronary artery bypass graft x 3: (4) H/O mechanical aortic valve replacement: (5) S/P coronary artery stent placement: (6) Pulmonary fibrosis: (7) Multifocal pneumonia: (8) Anticoagulant long-term use: (9) HTN (hypertension): (10) HLD (hyperlipidemia): (11) Mitral regurgitation: (12) Cardiomyopathy: ASSESSMENT/PLAN: 1. NSTEMI: He did not present with acute coronary syndrome and denies any angina. Could be due to demand ischemia in the setting of pulmonary fibrosis and pneumonia as he did present with leukocytosis and myalgias. No indication for urgent cardiac catheterization. Will further discuss some form of beta- cheo therapy such as carvedilol since he reportedly has not tolerated metoprolol in the past. He has not tolerated statins. 2. Cardiomyopathy: LV systolic function has declined. Echo findings discussed with him. Could be due to acute illness. Degree of troponin elevation does not correlate well with degree of LV systolic dysfunction. Could consider ischemic evaluation at some point. Recommend medical therapy for now well being treated for his pulmonary issues. He appears mildly hypervolemic on exam. Would consider intravenous diuretic if necessary but he appears to be diuresing well with oral diuretic. will discuss in more detail with him his intolerance to beta-cheo therapy but would consider carvedilol if he is agreeable and no significant complication in the past with beta-cheo. He also has reported intolerance to OMAR-inhibitor and ARB, with intolerance to spironolactone as well. Medical therapy may be limited. If no improvement over time, could consider ICD for primary prevention. 3. CAD s/p CABG and PCI: Details of prior revascularization are not known. [facility] No angina. Continue aspirin 81 mg daily. Has not tolerated several other cardiac meds as noted. 4. Mechanical aortic valve: On anticoagulation. Asymptomatic in this regard. 5. Pulmonary fibrosis and multifocal pneumonia: As per primary service. Symptoms have improved. 6. Mitral regurgitation: Non severe. Can be followed over time as an outpati ent. 7. Hypertension: Blood pressure has been relatively well controlled. Will discuss cardiac meds as above. 8. Dyslipidemia: Has not tolerated statin therapy. Is tolerating Zetia. 9. Disposition: Cardiology will continue to follow. Highly complex medical issues. Thank you for allowing me to participate in the care of your patient. Please call for any other questions or concerns. Sincerely, Richi Cuello M.D. History of Present Illness Reason for Consultation: NSTEMI Requesting Physician: Jenny Motta Attending Physician: Jerel Hooper, DO History of Present Illness Mr. Echavarria is a very pleasant 85-year-old gentleman with history significant for mechanical aortic valve (2001), CAD s/p CABG x 3 (2001), PCI x5 after CABG, hypertension, dyslipidemia, and tuberculosis status post right upper and right middle lobe resection in 1960. His primary media consultant is through the [facility] in [place]. After his CABG x3 and mechanical aortic valve replacement in 2001, he has had 5 stents placed. His most recent PCI was reportedly on 08/12/2018 at the [facility] where he reportedly underwent PCI within the RCA. No further details were available at the time of this note. He was admitted on 09/06/2020 with multi focal pneumonia and was placed on azithromycin and ceftriaxone as well as IV Solu-Medrol. He states that for the past 1 month or so he has had dyspnea with exertion which worsened yesterday. He came to the hospital due to the dyspnea with exertion but also because he had significant myalgias which were generalized throughout his entire body. He denies fevers or chills but did have a nonproductive cough. He denies orthopnea. He has not had any chest discomfort or angina but did reportedly have angina in the past prior to revascularization/PCI. He was seen on 09/06/2020 in the evening. He had no shortness of breath sitting in bed and his myalgias have resolved. He feels much better overall. He was noted to have initial troponin of 0.076 which peaked at 2.95 and has since trended downward. He underwent echocardiogram on 09/06/2020 which demonstrated reduced LV systolic function compared to previous echo on 08/28/2019. Current EF was estimated to be 30% with global hypokinesis and severe hypokinesis to akinesis of the inferior wall. Mitral regurgitation appeared moderate and RVSP was estimated to be normal. Review of systems: As above. Review of systems otherwise negative/unremarkable. Family history: Father at the age of 69 with MO. Social history: He smoked 1 pack per day for years but quit approximately 40 years ago. No current alcohol. No drug abuse. He lives alone. . He has 2 sons who live in [place], [place]. He is unaccompanied. Allergies Allergy/AdvReac Type Severity Reaction Status Date / Time aspirin AdvReac Intermediate high doses Unverified 09/06/20 03:17 burn his stomach amlodipine AdvReac Unknown Verified 09/06/20 03:24 atorvastatin AdvReac Unknown Verified 09/06/20 03:24 ciprofloxacin AdvReac Unknown Verified 09/06/20 03:24 doxycycline AdvReac Unknown Verified 09/06/20 03:28 felodipine AdvReac Unknown Verified 09/06/20 03:20 fluvastatin AdvReac Muscle Pain Verified 09/06/20 03:23 gabapentin AdvReac Confusion Verified 09/06/20 03:23 hydralazine AdvReac Unknown Verified 09/06/20 03:20 hydrochlorothiazide AdvReac Unknown Verified 09/06/20 03:23 isosorbide AdvReac Unknown Verified 09/06/20 03:23 labetalol AdvReac Unknown Verified 09/06/20 03:27 levothyroxine AdvReac Unknown Verified 09/06/20 03:24 lisinopril AdvReac Chest Pain Verified 09/06/20 03:26 loratadine AdvReac Unknown Verified 09/06/20 03:26 losartan AdvReac Unknown Verified 09/06/20 03:26 methyldopa AdvReac Headache Verified 09/06/20 03:28 metoprolol AdvReac Unknown Verified 09/06/20 03:20 nifedipine AdvReac Unknown Verified 09/06/20 03:27 nitrofurantoin AdvReac Dizziness Verified 09/06/20 03:28 omeprazole AdvReac Muscle Pain Verified 09/06/20 03:18 simvastatin AdvReac Muscle Pain Verified 09/06/20 03:18 spironolactone AdvReac Nausea Verified 09/06/20 03:18 valsartan AdvReac Unknown Verified 09/06/20 03:18 Home Medications Medication Instructions Recorded Confirmed Type aspirin 81 mg tablet,delayed 81 mg PO QAM 08/28/19 09/06/20 History release ezetimibe 10 mg tablet 10 mg PO QAM 08/28/19 09/06/20 History finasteride 5 mg tablet 5 mg PO PM 08/28/19 09/06/20 History furosemide 20 mg tablet (Lasix) 20 mg PO QAM 08/28/19 09/06/20 History glycerin (adult) 1 supp OK DAILY 08/28/19 09/06/20 History hydralazine 50 mg tablet 50 mg PO QID 08/28/19 09/06/20 History hydrochlorothiazide 25 mg tablet 25 mg PO QAM 08/28/19 09/06/20 History methocarbamol 500 mg tablet 500 mg PO HS PRN 08/28/19 09/06/20 History nitroglycerin 0.2 mg/hr 1 patch TRANSDERMAL QAM 08/28/19 09/06/20 History transdermal 24 hour patch nitroglycerin 0.4 mg/hr 1 patch TRANSDERMAL QAM 08/28/19 09/06/20 History transdermal 24 hour patch ranolazine 500 mg tablet,extended 1,000 mg PO BID 08/28/19 09/06/20 History release,12 hr tamsulosin 0.4 mg capsule 0.4 mg PO HS 08/28/19 09/06/20 History warfarin 5 mg tablet 5 mg PO PM 08/28/19 09/06/20 History Olodaterol/Tiotrop 2 inh PO DAILY 09/06/20 09/06/20 History carboxymethylcellulose sodium 1 % 1 drp OPHTHALMIC (EYE) QID 09/06/20 09/06/20 History eye drops coenzyme Q10 200 mg capsule 200 mg PO DAILY 09/06/20 09/06/20 History fluticasone propionate 50 2 spray INTRANASAL DAILY 09/06/20 09/06/20 History mcg/actuation nasal spray,suspension lidocaine 5 % topical patch 1 patch TOPICAL DAILY 09/06/20 09/06/20 History nitroglycerin 0.3 mg sublingual 0.3 mg SUBLINGUAL UD PRN 09/06/20 09/06/20 History tablet pantoprazole 20 mg tablet,delayed 20 mg PO DAILY 09/06/20 09/06/20 History release potassium chloride 20 mEq 20 meq PO DAILY 09/06/20 09/06/20 History tablet,extended release tramadol 50 mg tablet 50 mg PO Q6H PRN 09/06/20 09/06/20 History triamcinolone acetonide 0.025 % 1 applic TOPICAL BID 09/06/20 09/06/20 History topical cream Patient History Medical History (Updated 09/07/20 @ 00:25 by Mynor Cuello MD) Anticoagulant long-term use CAD (coronary artery disease) History of tuberculosis HLD (hyperlipidemia) HTN (hypertension) Mitral regurgitation Surgical History (Updated 09/07/20 @ 00:23 by Mynor Cuello MD) H/O mechanical aortic valve replacement History of coronary artery bypass graft x 3 Hx of cholecystectomy Hx of rotator cuff surgery S/P coronary artery stent placement S/P lobectomy of lung Family History Other Heart disease Social History Smoking Status: Former smoker Tobacco Type: Cigarettes Number of Years Since Quit: 40; Second Hand Exposure: No; Hx Alcohol Use: No Hx Substance Use: No Preferred Language: Thai Communication Ability: Effective Lining Stamper Required: No Beliefs That Will Affect Care: None Current Living Situation: Alone Other Information That Helps Us Care for You: No Feels Safe at Home: Yes Safety Concerns: Feels Safe At This Time Assistive Devices: Glasses Physical Exam Physical Exam: Gen.: No acute distress. Alert and oriented. HEENT: Anicteric sclera. Neck: Elevated JVD and hepatic jugular reflux. No bruits. Normal carotid upstrokes bilaterally. Cardiac: PMI was nonpalpable. No ventricular heave. Regular. Normal S1. [place] S2. Audible S3. 1/6 systolic ejection murmur. Pulmonary: Decreased breath sounds bilaterally with coarse sounds at the bases. Abdomen: Soft, nontender, nondistended, with normoactive bowel sounds. No bruits noted. Extremities: 2+ radial pulses bilaterally. 2+ posterior tibialis pulses bilaterally. Trace bilateral lower extremity edema. No cyanosis. Psychiatric: Affect appears appropriate. Results & Data ([facility]) Vital Signs (Past 12 Hours) Vital Signs Temp Pulse Pulse Resp BP BP Pulse Ox 09/06/20 16:00 78 21 90 09/06/20 15:32 90 18 93 09/06/20 14:00 72 22 93 09/06/20 12:00 84 24 94 09/06/20 11:37 36.5 C 76 21 127/79 92 09/06/20 11:07 77 18 93 09/06/20 10:02 100 H 29 H 129/68 92 09/06/20 08:09 87 18 90 09/06/20 08:00 85 18 95 Intake & Output 09/04/20 09/05/20 09/06/20 09/07/20 06:59 06:59 06:59 06:59 Intake Total 100 / 100 1025 / 1025 Output Total 1800 / 1800 Balance 100 / 100 -775 / -775 Weight 198 lb 3.129 oz Laboratory Results Laboratory Results - last 24 hr 09/06/20 09/06/20 09/06/20 02:55 02:55 02:55 WBC 11.14 H RBC 4.04 L Hgb 11.7 L Hct 34.5 L MCV 85.4 MCH 29.0 MCHC 33.9 RDW Std Deviation 51.2 H RDW Coeff of Jaclyn 16.4 H Plt Count 184 MPV 9.8 Immature Gran % (Auto) 0.3 Neut % (Auto) 77.8 Lymph % (Auto) 9.2 Anderson % (Auto) 11.5 Eos % (Auto) 1.0 Baso % (Auto) 0.2 Neut # (Auto) 8.68 H Lymph # (Auto) 1.02 L Anderson # (Auto) 1.28 H Eos # (Auto) 0.11 Baso # (Auto) 0.02 Immature Gran # (Auto) 0.03 H PT INR Sodium 136 Potassium 3.7 Chloride 103 Carbon Dioxide 25 Anion Gap 8.0 BUN 16 Creatinine 0.96 Est Cr Clr Drug Dosing 62.7 Est GFR ( Amer) 83.8 Est GFR (Non-Af Amer) 72.3 BUN/Creatinine Ratio 16.4 Glucose 165 H POC Glucose Calcium 8.9 Magnesium 2.1 Total Bilirubin 0.6 AST 27 ALT 30 Alkaline Phosphatase 70 Troponin I 0.076 H* NT-Pro-B Natriuret Pep 1728 Total Protein 7.5 Albumin 3.3 L Globulin 4.2 H Albumin/Globulin Ratio 0.8 L TSH 4.610 H Free T4 1.33 Nasal Screen MRSA (PCR) Lyme Disease IgG Ab Negative Lyme Disease IgM Ab Negative COVID-19 Eval Order SARS-CoV-2 (PCR) 08/03/2809/06/20 09/06/20 02:55 04:02 04:02 WBC RBC Hgb Hct MCV MCH MCHC RDW Std Deviation RDW Coeff of Jaclyn Plt Count MPV Immature Gran % (Auto) Neut % (Auto) Lymph % (Auto) Anderson % (Auto) Eos % (Auto) Baso % (Auto) Neut # (Auto) Lymph # (Auto) Anderson # (Auto) Eos # (Auto) Baso # (Auto) Immature Gran # (Auto) PT 31.9 H INR 3.5 H Sodium Potassium Chloride Carbon Dioxide Anion Gap BUN Creatinine Est Cr Clr Drug Dosing Est GFR ( Amer) Est GFR (Non-Af Amer) BUN/Creatinine Ratio Glucose POC Glucose Calcium Magnesium Total Bilirubin AST ALT Alkaline Phosphatase Troponin I NT-Pro-B Natriuret Pep Total Protein Albumin Globulin Albumin/Globulin Ratio TSH Free T4 Nasal Screen MRSA (PCR) Lyme Disease IgG Ab Lyme Disease IgM Ab COVID-19 Eval Order Covid19 at [facility] SARS-CoV-2 (PCR) NEGATIVE 09/06/20 09/06/20 09/06/20 06:40 07:08 08:47 WBC RBC Hgb Hct MCV MCH MCHC RDW Std Deviation RDW Coeff of Jaclyn Plt Count MPV Immature Gran % (Auto) Neut % (Auto) Lymph % (Auto) Anderson % (Auto) Eos % (Auto) Baso % (Auto) Neut # (Auto) Lymph # (Auto) Anderson # (Auto) Eos # (Auto) Baso # (Auto) Immature Gran # (Auto) PT INR Sodium Potassium Chloride Carbon Dioxide Anion Gap BUN Creatinine Est Cr Clr Drug Dosing Est GFR ( Amer) Est GFR (Non-Af Amer) BUN/Creatinine Ratio Glucose POC Glucose 187 H Calcium Magnesium Total Bilirubin AST ALT Alkaline Phosphatase Troponin I 0.456 H* NT-Pro-B Natriuret Pep Total Protein Albumin Globulin Albumin/Globulin Ratio TSH Free T4 Nasal Screen MRSA (PCR) Negative Lyme Disease IgG Ab Lyme Disease IgM Ab COVID-19 Eval Order SARS-CoV-2 (PCR) 09/06/20 09/06/20 09/06/20 10:58 14:57 16:36 WBC RBC Hgb Hct MCV MCH MCHC RDW Std Deviation RDW Coeff of Jaclyn Plt Count MPV Immature Gran % (Auto) Neut % (Auto) Lymph % (Auto) Anderson % (Auto) Eos % (Auto) Baso % (Auto) Neut # (Auto) Lymph # (Auto) Anderson # (Auto) Eos # (Auto) Baso # (Auto) Immature Gran # (Auto) PT INR Sodium Potassium Chloride Carbon Dioxide Anion Gap BUN Creatinine Est Cr Clr Drug Dosing Est GFR ( Amer) Est GFR (Non-Af Amer) BUN/Creatinine Ratio Glucose POC Glucose 194 H 199 H Calcium Magnesium Total Bilirubin AST ALT Alkaline Phosphatase Troponin I 2.950 H* NT-Pro-B Natriuret Pep Total Protein Albumin Globulin Albumin/Globulin Ratio TSH Free T4 Nasal Screen MRSA (PCR) Lyme Disease IgG Ab Lyme Disease IgM Ab COVID-19 Eval Order SARS-CoV-2 (PCR) 09/06/20 09/06/20 20:57 23:23 WBC RBC Hgb Hct MCV MCH MCHC RDW Std Deviation RDW Coeff of Jaclyn Plt Count MPV Immature Gran % (Auto) Neut % (Auto) Lymph % (Auto) Anderson % (Auto) Eos % (Auto) Baso % (Auto) Neut # (Auto) Lymph # (Auto) Anderson # (Auto) Eos # (Auto) Baso # (Auto) Immature Gran # (Auto) PT INR Sodium Potassium Chloride Carbon Dioxide Anion Gap BUN Creatinine Est Cr Clr Drug Dosing Est GFR ( Amer) Est GFR (Non-Af Amer) BUN/Creatinine Ratio Glucose POC Glucose 209 H Calcium Magnesium Total Bilirubin AST ALT Alkaline Phosphatase Troponin I 2.710 H* NT-Pro-B Natriuret Pep Total Protein Albumin Globulin Albumin/Globulin Ratio TSH Free T4 Nasal Screen MRSA (PCR) Lyme Disease IgG Ab Lyme Disease IgM Ab COVID-19 Eval Order SARS-CoV-2 (PCR) Diagnostic Findings Telemetry personally reviewed: Sinus rhythm and sinus tachycardia. ECG personally reviewed from 09/06/2020: Possible sinus tachycardia with RBBB and LVH. Echo report reviewed as noted above in HPI. CTA chest 09/06/2020: No evidence of aortic dissection or significant dilation. Interstitial lung disease, non-UIP pattern. Possible superimposed infiltrates within left upper lobe and bilateral lower lobes. Mildly dilated pulmonary artery. Medications Administered Current Inpatient Medications Acetaminophen (Acetaminophen 325 Mg Tab) 650 mg PO Q4H PRN PRN Reason: Pain or Fever Stop: 10/06/20 06:46 Albuterol (Albut/Ipratrop 3mg/0.5mg Neb 3 Ml Vial) 3 ml NEB QIDR [facility] Stop: 10/06/20 06:59 Last Admin: 09/06/20 20:09 Dose: 3 ml Documented by: Aspirin (Aspirin 81 Mg Ectab) 81 mg PO QAM [facility] Stop: 10/06/20 08:59 Last Admin: 09/06/20 08:55 Dose: 81 mg Documented by: Dextrose (Dextrose 50% 50 Ml Syringe) 25 - 50 ml IV UD PRN; Protocol PRN Reason: Hypoglycemia Protocol Stop: 10/06/20 06:46 Ezetimibe (Ezetimibe 10 Mg Tablet) 10 mg PO QAM [facility] Stop: 10/06/20 08:59 Last Admin: 09/06/20 08:55 Dose: 10 mg Documented by: Finasteride (Finasteride 5 Mg Tab) 5 mg PO PM [facility] Stop: 10/06/20 20:59 Last Admin: 09/06/20 21:18 Dose: 5 mg Documented by: Furosemide (Furosemide 20 Mg Tab) 20 mg PO QAM [facility] Stop: 10/06/20 08:59 Last Admin: 09/06/20 08:55 Dose: 20 mg Documented by: Glucagon (Glucagon For Inj 1 Mg Vial) 1 mg SQ UD PRN; Protocol PRN Reason: Hypoglycemia Protocol Stop: 10/06/20 06:46 Glucose (Glucose 10 Tabs/Tube) 4 - 8 tabs PO UD PRN; Protocol PRN Reason: Hypoglycemia Protocol Stop: 10/06/20 06:46 Glucose (Glucose 40% Gel 15 Gm Tube) 15 - 30 gm PO UD PRN; Protocol PRN Reason: Hypoglycemia Protocol Stop: 10/06/20 06:46 Glycerin (Glycerin Adult 12 Supp/Box Supp) 1 supp OK DAILY [facility] Stop: 10/06/20 08:59 Guaifenesin (Guaifenesin 600 Mg Tabcr) 600 mg PO Q12 [facility] Stop: 10/06/20 08:59 Last Admin: 09/06/20 21:18 Dose: 600 mg Documented by: Hydralazine HCl (Hydralazine Tab 50 Mg Tab) 50 mg PO QID [facility] Stop: 10/06/20 08:59 Last Admin: 09/06/20 21:18 Dose: 50 mg Documented by: Ceftriaxone Sodium 2,000 mg/ (Dextrose) 70 mls @ 100 mls/hr IV DAILY [facility]; Protocol Stop: 09/13/20 08:59 Last Infusion: 09/06/20 09:37 Dose: Infused Documented by: Azithromycin 500 mg/ Dextrose 255 mls @ 125 mls/hr IV DAILY [facility] Stop: 09/13/20 08:59 Last Infusion: 09/06/20 10:43 Dose: Infused Documented by: Insulin Aspart (Insulin Aspart 100 Units/Ml 3 Ml Pen) 0 units SC ACHS [facility] Stop: 10/06/20 07:29 Last Admin: 09/06/20 21:24 Dose: 2 units Documented by: Lidocaine (Lidocaine 5% 1 Patch) 1 patch TD DAILY [facility] Stop: 10/06/20 08:59 Last Admin: 09/06/20 08:54 Dose: Not Given Documented by: Methocarbamol (Methocarbamol 500 Mg Tablet) 500 mg PO HS PRN PRN Reason: Muscle Spasm Stop: 10/06/20 06:46 Miscellaneous ([Carboxymethylcellulose 1% Opth] Order Awaiting Action) 1 ea N/A QS [facility] Stop: 10/06/20 07:59 Last Admin: 09/06/20 23:54 Dose: Not Given Documented by: Miscellaneous (Remove Nitro-Dur Patch) 1 ea N/A DAILY@2100 [facility] Stop: 10/06/20 20:59 Last Admin: 09/06/20 21:22 Dose: Not Given Documented by: Miscellaneous (Remove Lidoderm Patch) 1 ea N/A DAILY@2100 [facility] Stop: 10/06/20 20:59 Last Admin: 09/06/20 21:22 Dose: Not Given Documented by: Miscellaneous (Carbohydrates For Hypoglycemia ) 15 - 30 gm PO UD PRN PRN Reason: Hypoglycemia Protocol Stop: 10/06/20 06:46 Nitroglycerin (Nitroglycerin 0.2 Mg/Hr Patch) 1 patch TD QAM [facility] Stop: 10/06/20 08:59 Last Admin: 09/06/20 08:54 Dose: 1 patch Documented by: Nitroglycerin (Nitroglycerin 0.4 Mg/Hr Patch) 1 patch TD QAM [facility] Stop: 10/06/20 08:59 Last Admin: 09/06/20 08:54 Dose: 1 patch Documented by: Ondansetron HCl (Ondansetron Inj 2 Mg/Ml 2 Ml Vial) 4 mg IV Q6H PRN PRN Reason: Nausea Stop: 10/06/20 06:46 Pantoprazole Sodium (Pantoprazole 40 Mg Tab) 40 mg PO DAILY [facility] Stop: 10/06/20 08:59 Last Admin: 09/06/20 08:54 Dose: 40 mg Documented by: Potassium Chloride (Potassium Chloride Crtab 20 Meq Tabcr) 20 meq PO DAILY [facility] Stop: 10/06/20 08:59 Last Admin: 09/06/20 08:53 Dose: 20 meq Documented by: Ranolazine (Ranolazine 500 Mg Er Tab) 1,000 mg PO BID [facility] Stop: 10/06/20 08:59 Last Admin: 09/06/20 21:18 Dose: 1,000 mg Documented by: Tamsulosin HCl (Tamsulosin Hcl 0.4 Mg Cap) 0.4 mg PO HS [facility] Stop: 10/06/20 20:59 Last Admin: 09/06/20 21:19 Dose: 0.4 mg Documented by: Tramadol HCl (Tramadol Hcl 50 Mg Tablet) 50 mg PO Q6H PRN PRN Reason: Moderate Pain Stop: 10/06/20 06:46 Triamcinolone Acetonide (Triamcinolone Acet 0.025% Cr 15 Gm Tube) 1 appln TOP BID [facility] Stop: 10/06/20 08:59 Last Admin: 09/06/20 21:22 Dose: Not Given Documented by: Warfarin Sodium (Warfarin Sod 5 Mg Tab) 5 mg PO PM [facility] Stop: 10/06/20 20:59 Last Admin: 09/06/20 22:09 Dose: 5 mg Documented by: PG Care Time/CCT Total # of Minutes Spent Total Time Spent with Patient: Total time spent is greater than 50% in coordination of care (as documented) at patient's floor/unit and/or counseling patient: Coding Level of Care Code 95676 Initial Inpt Care Lvl 3 Diagnoses Non-ST elevation (NSTEMI) myocardial infarction I21.4 CAD (coronary artery disease) I25.10 History of coronary artery bypass graft x 3 Z95.1 H/O mechanical aortic valve replacement Z95.2 S/P coronary artery stent placement Z95.5 Pulmonary fibrosis J84.10 Multifocal pneumonia J18.9 Anticoagulant long-term use Z79.01 HTN (hypertension) I10 HLD (hyperlipidemia) E78.5 Mitral regurgitation I34.0 Cardiomyopathy I42.9
--- NOTE | 2020-09-06 20:38 | XCELERA ---
[id number]
[2020-09-06] MEDS ORDERED: WARFARIN SOD 5 MG TAB PO SCH (21:00)
[2020-09-06] MEDS ORDERED: FINASTERIDE 5 MG TAB PO SCH (21:00)
[2020-09-06] MEDS ORDERED: TAMSULOSIN HCL 0.4 MG CAP PO SCH (21:00)
[2020-09-07 05:54] LABS: Hematocrit (blood only) 33.1 % (42-52); Hemoglobin 11.1 g/dL (14.0-18.0); Immature Granulocytes # (auto) 0.05 K/uL (0.00-0.02); Immature Granulocytes % (auto) 0.3 %; Lymphocytes # (auto) 1.05 K/uL (1.2-3.4); Lymphocytes % (auto) 6.2 %; Mean Corpuscular Hemoglobin 28.8 pg (25-34); Mean Corpuscular Hgb Conc 33.5 g/dL (32-36); Mean Corpuscular Volume 85.8 fL (80-100); Mean Platelet Volume 9.9 fL (7.4-10.4); Monocytes # (auto) 2.03 K/uL (0.11-0.59); Monocytes % (auto) 12.1 %; Neutrophils # (auto) 13.68 K/uL (1.4-6.5); Neutrophils % (auto) 81.4 %; Platelet Count 204 K/uL (130-400); RDW Coefficient of Variation 16.9 % (11.5-14.5); RDW Standard Deviation 52.4 fL (36.4-46.3); Red Blood Count 3.86 M/uL (4.7-6.1); White Blood Count 16.81 K/uL (4.8-10.8)
[2020-09-07 06:08] LABS: INR 3.2 (0.9-1.1); Prothrombin Time 29.7 Seconds (9.0-12.0)
[2020-09-07 06:31] LABS: BUN Creatinine Ratio 14.4 (10-20); Calcium 9.2 mg/dl (8.5-10.1); Creatinine Clr Calc Pharmacy 61.2 ml/min; Est GFR (African American) 81.7 ml/min; Est GFR (Non-African American) 70.5 ml/min; Potassium 4.2 mmol/L (3.5-5.1)
[2020-09-07 06:33] LABS: Albumin Globulin Ratio 0.7 (0.9-2); Bilirubin,Total 0.7 mg/dl (0.2-1)
[2020-09-07] MEDS: ALBUT/IPRATROP 3MG/0.5MG NEB 3 ML VIAL NEB SCH ×4 (07:10→19:44)
[2020-09-07] MEDS: TRIAMCINOLONE ACET 0.025% CR 15 GM TUBE TOP SCH (07:23)
[2020-09-07] MEDS: LIDOCAINE 5% 1 PATCH TD SCH (07:23)
[2020-09-07 07:35] LABS: Estimated Average Glucose 131 mg/dl; Hemoglobin A1C 6.2 % (4.5-5.6)
[2020-09-07] MEDS ORDERED: NITROGLYCERIN SL 0.4 MG/TAB TAB ONE (08:09)
[2020-09-07] MEDS: EZETIMIBE 10 MG TABLET PO SCH (08:13)
[2020-09-07] MEDS: RANOLAZINE 500 MG ER TAB PO SCH ×2 (08:13→21:04)
[2020-09-07] MEDS ORDERED: NITROGLYCERIN SL 0.4 MG/TAB TAB SL STA (08:14)
[2020-09-07] MEDS: NITROGLYCERIN 0.4 MG/HR PATCH TD SCH (08:14)
[2020-09-07] MEDS ORDERED: NITROGLYCERIN SL 0.4 MG/TAB TAB SL PRN (08:14)
[2020-09-07] MEDS: POTASSIUM CHLORIDE CRTAB 20 MEQ TABCR PO SCH (08:19)
[2020-09-07] MEDS: NITROGLYCERIN 0.2 MG/HR PATCH TD SCH (08:19)
[2020-09-07] MEDS: PANTOprazole 40 MG TAB PO SCH (08:19)
[2020-09-07] MEDS: ASPIRIN 81 MG ECTAB PO SCH (08:19)
[2020-09-07] MEDS ORDERED: MoRPHine SULFATE 2 MG/ML CARP IV PRN (08:22)
[2020-09-07] MEDS: guaiFENesin 600 MG TABCR PO SCH ×2 (08:23→21:04)
[2020-09-07] MEDS: hydrALAZINE TAB 50 MG TAB PO SCH ×2 (08:24→14:36)
[2020-09-07] MEDS ORDERED: FUROSEMIDE 40 MG/4 ML VIAL IV ONE ×3 (08:26→12:38)
[2020-09-07] MEDS ORDERED: FUROSEMIDE 40 MG in SYRINGE 0 ML IV ONE ×2 (08:30→12:15)
[2020-09-07] MEDS ORDERED: methylPREDNISolone 125 MG in SYRINGE 0 ML IV STA (08:31)
[2020-09-07] MEDS: cefTRIAXone SODIUM 2,000 MG in DEXTROSE 5% 50 ML IV SCH (08:45)
[2020-09-07] MEDS: INSULIN ASPART 100 UNITS/ML 3 ML PEN SC SCH ×6 (08:48→20:01)
[2020-09-07] MEDS ORDERED: carvediloL 6.25 MG TAB PO SCH (09:00)
[2020-09-07] MEDS ORDERED: GLYCERIN ADULT 12 SUPP/BOX SUPP PR SCH (09:00)
--- NOTE | 2020-09-07 09:12 | XRay Report ---
XR chest 1V portable HISTORY: 85 years-old Male increase sob . Acute shortness of breath COMPARISON: CTA chest 09/06/2020, chest radiograph 08/28/2019 TECHNIQUE: Portable AP view of the chest FINDINGS: Cardiac silhouette is enlarged. Prior median sternotomy. Calcified plaque the thoracic aorta. Chronic mild volume loss of the right hemithorax with blunting of the right costophrenic angle. Chronic inte rstitial lung disease. Patchy left greater than right bilateral airspace opacities have progressively worsened from comparison. Degenerative changes of the shoulders and spine. IMPRESSION: 1. Cardiomegaly with chronic interstitial lung disease. 2. Left greater than right bilateral pulmonary opacities have mildly progressed from comparison. Find ings are suspicious for a superimposed infectious or inflammatory pneumonitis, possibly viral pneumon ia. ACT 112: Negative or not required by law. The above report was generated using voice recognition software. It may contain grammatical, syntax o r spelling errors. Electronically signed by: David Garcia M.D. 09/07/2020 9:11 AM
[2020-09-07] MEDS: AZITHROMYCIN 500 MG in DEXTROSE 5% 250 ML IV SCH (09:19)
[2020-09-07 09:22] LABS: Creatine Kinase MB 16.8 ng/ml (0.5-3.6); Troponin I 3.46 ng/ml (0-0.045)
[2020-09-07] MEDS ORDERED: DOPamine 400MG / 250ML D5W IV ONE ×2 (11:17→12:32)
[2020-09-07] MEDS ORDERED: STAT IV Infusion **Titration per Protocol STA ×2 (11:19→12:38)
[2020-09-07] MEDS ORDERED: DOPamine / D5W 400 MG/250 ML BAG IV SCH ×2 (11:30→12:45)
[2020-09-07] MEDS ORDERED: GLUCAGON 5 MG in SYRINGE 0 ML IV ONE (11:45)
--- NOTE | 2020-09-07 11:54 | Hospitalist Progress Note ---
Date of Service September 07, 2020 Assessment & Plan (1) Complete heart block: Plan: * Patient given Glucagon to reverse the 1 dose of coreg given earlier today. As stated- at the time, patient had a HR of 110 and SBP of 150. He does have a reported allergy to labetolol and metoprolol but he was uncertain as to what his reaction was and with the recent NSTEMI and decreased EF of 30% (was 55% 1 year ago) it was thought that he would benefit from added afterload reduction. * With his uptrending troponin and back pain- I suspect that he is actively infarcting (which is likely contributing to the complete heart block and HD instability) as it is quit possible that if his in infarcting in the inferior area-that he would subsequently had conduction issues. * Patient taken to the skilled labor but continued to decline from a respiratory standpoint-- went into acute CHF (again, likely a result of the acute infarction) * Given his critical state-- cardiac cath is on hold for now. * patient started on Lasix GTT and Dopamine GTT and transitioned into the ICU * At this point, I am not conviced that this is PNA at all and perhabs the opacities seen on imaging are likely related to his fibrotic changes. His intermittent back discomfort may have been intermittent angina. Will continue empiric abx therapyt for now as risk of stopping them outweighs risk of continuing * Mgmt per e commerce analyst-- appreciate recommendations * cardiology on board-- appreciate recommendations. Lengthy D/W Dr. Cuello who helped with comgmt * As stated above, pt DNR/DNI and refusing to have family called at this time * continue to trend troponin until it peaks (2) Acute systolic (congestive) heart failure: Plan: * likely related to acute infarction. * patient on lasix gtt * may utilize bipap if needed-- at discretion of e commerce analyst * NO BB (see above)!! * topical nitro and all antihypertensive meds stopped given hypotension earlier. Resumption at discretion of e commerce analyst (3) Non-ST elevation (NSTEMI) myocardial infarction: Plan: * see above (4) Leukocytosis: Plan: * suspect reactive secondary to #2/3 (5) Pulmonary fibrosis: Plan: * chronic. Honestly, not conviced patient has active PNA but perhaps CT abnormalities may be related to fibrotic changes. Will continue empiric abx therapy for now as patient critically ill (see above) and risk of discontinuation outweighs risk of continuing. (6) Multifocal pneumonia: Plan: * see above Admission and Anticipated Discharge Date Admission Date: September 06, 2020 Subjective Patient seen on daily rounds today. Apparently has been having CP/back pain "crushing" all night and into this morning. His He denies SOB; however, appears dyspneic. Biggest complaint is "crushing back pain" with radiation around to the bilateral chest. When seen early this am: SBP was 156 and his HR was 109. He was given SL NTG without relief. He was subsequently given Morphine Sulfate which alleviated his CP. Echo done showing decreased EF of 30%. Cardiology on board and initially peaked at 2.9 with downtrending. He had repeat labs showing that his troponin is uptrending (3.4) along with an increasing BNP of 14,000. Was given lasix 40mg IV x1. HR and BP tolerated the Lasix, Morphine and SL NGT. His pain resolved and he was feeling well. A repeat CXR showed and increased haziness in the JENNY without significant PVC. EKG was unchanged from the day prior. Echo done lastnight showing EF 30% (which 1 year ago it was 55%) and now with severe hypokinesis of the inferior wall Given NSTEMI with now uptrending troponin and known cardiac hx, and his decreased EF- coreg was initiated. Patient has a reported hx to different BB's (including labetolol and Metoprolol) but he was uncertain as to what this reaction was. HR remained tachycardic (105) and SBP remained in the 130's. He was subsequently started on Coreg 6.25mg for afterload reduction as to provide additional cardiac protection. PAtient then developed bradycardia (sustained in the 30's). BP initially stable (110 systolic) Re-evaluated patient and he is c/o "crushing back pain" with radiation around to his chest. He denied feeling SOB/dyspnea but clinically appears so. pulse ox 92% on 2L HR remained sustained in the 30's, BP started dropping (90's systolic). Topical Nitropatch removed (given dropping BP). Spoke with Dr. Farias (e commerce analyst) and Dr. Cuello (cardiology). Glucagon 5mg IVP given. EKG done and cardiac monitorring showed 3rd degree block. Dr. Cuello immediately came in to evaluate the patient and with his symptoms, his uptrending troponin and now complete heart block-- patient to be taken to the track repair laborer emergently. Notifed by Dr. Cuello that plan is to hold off of cardiac cath at this point. Patient with active ischemic and poor cardiac output only complicating acute CHF. He is currently being monitored in the track repair laborer and has since been started on a dopamine and lasix gtt. HR currently in the 80's. BP 94/63. Pulse ox 93% on 4L. Myself, Dr. Hunter, and Dr. Meyers to call patient's family; however, he ultimately refused. Patient has declared adamantly that he is a DNR/DNI. He is agreeable to aggressive measures (critical care drips, cardiac catheterization, BiPAP) but does not want intubated/resuscitated. Review of Systems Review of Systems: + back pain with radiation into his anterior chest bilaterally. Denies feeling SOB (although clinically appears dyspneic). Denies F/C, diaphoresis, cough, abd pain, N/V Physical Exam Physical Exam: General: Initially when seen this morning, patient generally looked ill. He appeared dyspneic and had conversational dyspnea (although denied shortness of breath). He was holding his chest complaining of back pain radiating to the chest. He was awake and mentating without issues. Neck: Mild JVD + hepatojugular reflex Cardiac: Initially seen by myself and tachycardic at 110. Heart rate was regular. Mechanical heart sound noted. Lungs: Conversational dyspnea noted but breathing nonlabored at rest. Bibasilar crackles with end expiratory wheezes throughout. Abdomen: Abdomen distended soft and nontender in all quadrants. Extremities: No peripheral clubbing, cyanosis, edema Neuro: A&O X4 cranial nerves II through XII are grossly intact no focal neuro deficits Skin: No obvious skin lesions or rashes Results & Data Results & Data ([facility]) Vital Signs (Past 12 Hours) Vital Signs Temp Pulse Pulse Resp BP Pulse Ox 09/07/20 11:04 52 L 106/58 L 09/07/20 10:21 98 H 20 95 09/07/20 08:00 36.9 C 109 H 100 H 18 142/78 H 96 09/07/20 07:10 109 H 20 87 L 09/07/20 03:22 36.8 C 101 H 20 121/63 90 Initial HR when seen by myself: 110 BPM Initial BP when seen by myself: 156/82 Around 1130: HR sustained 30's BP continually dropping down to 80's systolic with a MAP of 57 Laboratory Results 09/07/20 05:38 09/07/20 05:38 Cardiac enzymes uptrending after troponin peaked yesterday 2.9 Currently CK: 320 CK-MB: 16.8 Troponin: 3.4 BNP repeated given change in status: now [id number] (from 1728 yesterday) Diagnostic Findings CXR: increased PVC EKG/exam proctor: complete heart block with a rate in the 30's PG Care Time/CCT Total # of Minutes Spent Total Time Spent with Patient: Total time spent is greater than 50% in coordination of care (as documented) at patient's floor/unit and/or counseling patient: 90 Prolonged Care Time 90 min 90 min Coding [place] [id number] Subseq Hosp Care Lvl 3 Patient Type Established History Comprehensive Exam Comprehensive Diagnoses Complete heart block I44.2 Acute systolic (congestive) heart failure I50.21 Non-ST elevation (NSTEMI) myocardial infarction I21.4 Leukocytosis D72.829 Pulmonary fibrosis J84.10 Multifocal pneumonia J18.9 Time Spent (min) 90
--- NOTE | 2020-09-07 12:45 | Cardiology Progress Note ---
Date of Service September 07, 2020 Assessment & Plan (1) Acute on chronic systolic heart failure: Plan: Acute systolic heart [place] ( [place]np [id number]) severely ill, poor prognosis-DNR/DNI, he reaffirmed that he does not want be intubated under any circumstances CAD/CABG Complete heart block with HR in the 30s mechanical aortic valve Will initiate diuresis with inotropic augmentation with Lasix and dopamine drip His volume overload will only worsen with a contrast load for this reason, the risk of respiratory faliure with cardiac cath outweighs the benefits of cath at this time Given how sick he is, I offered to call his POA and update but he explicitly refused. Lasix and dopamine drips initiated. Mechanical support with impella not an option in this patient with a mechanical aortic valve ICU transfer, high risk of sudden hemodynamic deterioration and . Admission and Anticipated Discharge Date Admission Date: September 07, 2020 Subjective Seen/examined in clam bed laborer holding area. Some shortness of breath having some back pain Review of Systems Respiratory: short of breath Cardiovascular: Additional Comments: no chest pain, Gastrointestinal: no nausea or vomiting Physical Exam Eyes: Perrla, eomi Neck: + jvd Respiratory: diminished air entry, bibasilar rales Cardiovascular: s1, s2, s3 gallop, mechanical click Neurologic: awake but waxing and waning - ? cerebral hypoperfusion Results & Data ([facility]) Vital Signs (Past 12 Hours) Vital Signs Temp Pulse Pulse Pulse Resp BP Pulse Ox 09/07/20 12:36 40 L 20 120/49 L 95 09/07/20 12:09 39 L 24 101/48 L 09/07/20 11:04 52 L 106/58 L 09/07/20 10:21 98 H 20 95 09/07/20 08:00 36.9 C 109 H 100 H 18 142/78 H 96 09/07/20 07:10 109 H 20 87 L 09/07/20 03:22 36.8 C 101 H 20 121/63 90 Laboratory Results inr 3.2
[2020-09-07] MEDS ORDERED: MAGNESIUM SULFATE 1GM / D5W BAG IV ONE (13:01)
[2020-09-07] MEDS ORDERED: FUROSEMIDE 100 MG in DEXTROSE 5% 90 ML IV SCH (13:15)
--- NOTE | 2020-09-07 13:40 | Cardiology Progress Note ---
Date of Service September 07, 2020 Assessment & Plan (1) Complete heart block: (2) Acute systolic (congestive) heart failure: (3) Non-ST elevation (NSTEMI) myocardial infarction: (4) CAD (coronary artery disease): (5) History of coronary artery bypass graft x 3: (6) H/O mechanical aortic valve replacement: (7) S/P coronary artery stent placement: (8) Pulmonary fibrosis: (9) Multifocal pneumonia: (10) Anticoagulant long-term use: (11) HTN (hypertension): (12) HLD (hyperlipidemia): (13) Mitral regurgitation: (14) Cardiomyopathy: Plan: ASSESSMENT/PLAN: 1. Complete heart block: Occurred after receiving carvedilol x1 dose. Quite symptomatic and possibly contributing to his heart failure and overall respiratory issues. He was mentating well and had low-normal blood pressures. Recommended temporary transvenous pacemaker. He was agreeable. Contacted interventional Cardiology, Dr. Meyers. He was agreeable to perform transvenous pacemaker and consideration of cardiac catheterization and patient was sent to the laboratory associate. Requested nursing staff to place transcutaneous pacing pads in case necessary. Would avoid future AV bruno blocking agents. 2. Acute systolic CHF: He appeared to decompensate this morning. Could be related to ischemia as his troponin is once again trending upward and he had chest/back pain that resolved with nitroglycerin and morphine. Likely also related to reduced LV systolic function and complete heart block. An additional Lasix 40 mg IV was recommended while at the bedside. Strict I&Os. Daily weights. Low-sodium diet. 3. NSTEMI: He did not present with acute coronary syndrome and had denied angina on presentation and initial consultation. Did have back and chest pain today that resolved with nitroglycerin and morphine. This may be his anginal equivalent. Troponin once again trending upward. Recommended cardiac catheterization given his acute decompensation. He was agreeable to undergo the procedure. Avoid beta-blockers given complete heart block following carvedilol x1 dose. He has not tolerated statins. 4. Cardiomyopathy: LV systolic function has declined. With today's symptoms, would consider ischemic etiology. He is agreeable to cardiac catheterization. He has been intolerant to beta-cheo, Abdi inhibitor, ARB, spironolactone. Medical therapy may be limited. If no improvement over time, could consider ICD for primary prevention. 5. CAD s/p CABG and PCI: Details of prior revascularization are not known. Records requested. Symptoms this morning concerning for angina. Troponin once again trending upward. Continue aspirin 81 mg daily. Has not tolerated several other cardiac meds as noted. 6. Mechanical aortic valve: Would replace Coumadin with heparin drip when INR acceptable, while hospitalized for possible procedures. 7. Pulmonary fibrosis and multifocal pneumonia: As per primary service. 8. Mitral regurgitation: Non severe. Can be followed over time as an outpatient. 9. Hypertension: Blood pressure was low-normal during visit today. 10. Dyslipidemia: Has not tolerated statin therapy. Is tolerating Zetia. 11. Disposition: Critically ill patient. Poor prognosis. Recommended transvenous temporary pacemaker with consideration of cardiac catheterization. Recommend ICU level care. Recommended that we contact family to notify them of his current situation but he adamantly declines despite conversation with me and also nursing staff at the bedside, along with other providers at separate times. 60 minutes critical care time spent managing complete heart block and CHF, including coordinating care with other providers including critical care attending, Dr. Farias, product development assistant, Dr. Meyers, and primary service, Jenny Motta and Dr. Hooper. Admission and Anticipated Discharge Date Admission Date: September 06, 2020 Subjective I was notified by Jenny Motta of the primary hospitalist service that he was having more chest discomfort and became bradycardic. I presented to the bedside when available and evaluated him around noon time. According to nursing staff, he had been experiencing chest discomfort and back pain earlier this morning which resolved after nitroglycerin and morphine. He also received Lasix 40 mg IV. His symptoms improved. He was then noted to be tachycardic and was given carvedilol by primary service. Sometime after that, he developed complete heart block with ventricular escape rhythm at 40 beats per minute. When I enter the room, he was sitting upright, hunched over a bedside table. He denies shortness of breath but was noticeably tachypneic and in distress. He admitted that he had been having back pain but denied any chest pain at that time. He remained adamant that he did not want to undergo code situation but wished to be DNR and DNI. He was agreeable for aggressive treatment however including invasive measures. He denies syncope, lightheadedness, near-syncope, palpitations, and bleeding. Glucagon was administered prior to my arrival with no change in rhythm or heart rate. Review of systems: As above. Physical Exam Physical Exam: Gen.: Mild respiratory distress. Alert and appeared oriented. HEENT: Anicteric sclera. Neck: Elevated JVD. Cardiac: PMI was nonpalpable. No ventricular heave. Regular in the 40s. Normal S1. Stark S2. 1/6 systolic ejection murmur. Pulmonary: Bilateral rales, most noted at the bases. Abdomen: Soft, nontender, nondistended, with normoactive bowel sounds. No bruits noted. Extremities: 2+ radial pulses bilaterally. 2+ posterior tibialis pulses bilaterally. Trace bilateral lower extremity edema. No cyanosis. Results & Data ([facility]) Vital Signs (Past 12 Hours) Vital Signs Temp Pulse Pulse Pulse Resp BP Pulse Ox 09/07/20 13:03 90 20 89/49 L 92 09/07/20 12:47 44 L 20 98/48 L 92 09/07/20 12:36 40 L 20 120/49 L 95 09/07/20 12:09 39 L 24 101/48 L 09/07/20 11:04 52 L 106/58 L 09/07/20 10:21 98 H 20 95 09/07/20 08:00 36.9 C 109 H 100 H 18 142/78 H 96 09/07/20 07:10 109 H 20 87 L 09/07/20 03:22 36.8 C 101 H 20 121/63 90 Intake & Output 09/05/20 09/06/20 09/07/20 09/08/20 06:59 06:59 06:59 06:59 Intake Total 100 / 100 1225 / 1225 325 / 325 Output Total 2175 / 2175 Balance 100 / 100 -950 / -950 325 / 325 Weight 198 lb 3.129 oz 198 lb 10.184 oz Laboratory Results Laboratory Results - last 24 hr 09/06/20 09/06/20 09/06/20 14:57 16:36 20:57 WBC RBC Hgb Hct MCV MCH MCHC RDW Std Deviation RDW Coeff of Jaclyn Plt Count MPV Immature Gran % (Auto) Neut % (Auto) Lymph % (Auto) [place] % (Auto) Eos % (Auto) Baso % (Auto) Neut # (Auto) Lymph # (Auto) [place] # (Auto) Eos # (Auto) Baso # (Auto) Immature Gran # (Auto) PT INR Sodium Potassium Chloride Carbon Dioxide Anion Gap BUN Creatinine Est Cr Clr Drug Dosing Est GFR ( Amer) Est GFR (Non-Af Amer) BUN/Creatinine Ratio Glucose POC Glucose 199 H 209 H Estimat Average Glucose Hemoglobin A1c Calcium Total Bilirubin AST ALT Alkaline Phosphatase Total Creatine Kinase CK-MB (CK-2) CK/CKMB % Calc Troponin I 2.950 H* NT-Pro-B Natriuret Pep Total Protein Albumin Globulin Albumin/Globulin Ratio 09/06/20 09/07/20 09/07/20 23:23 05:38 05:38 WBC 16.81 H RBC 3.86 L Hgb 11.1 L Hct 33.1 L MCV 85.8 MCH 28.8 MCHC 33.5 RDW Std Deviation 52.4 H RDW Coeff of Jaclyn 16.9 H Plt Count 204 MPV 9.9 Immature Gran % (Auto) 0.3 Neut % (Auto) 81.4 Lymph % (Auto) 6.2 [place] % (Auto) 12.1 Eos % (Auto) 0.0 Baso % (Auto) 0.0 Neut # (Auto) 13.68 H Lymph # (Auto) 1.05 L [place] # (Auto) 2.03 H Eos # (Auto) 0.00 Baso # (Auto) 0.00 Immature Gran # (Auto) 0.05 H PT 29.7 H INR 3.2 H Sodium Potassium Chloride Carbon Dioxide Anion Gap BUN Creatinine Est Cr Clr Drug Dosing Est GFR ( Amer) Est GFR (Non-Af Amer) BUN/Creatinine Ratio Glucose POC Glucose Estimat Average Glucose Hemoglobin A1c Calcium Total Bilirubin AST ALT Alkaline Phosphatase Total Creatine Kinase CK-MB (CK-2) CK/CKMB % Calc Troponin I 2.710 H* NT-Pro-B Natriuret Pep Total Protein Albumin Globulin Albumin/Globulin Ratio 09/07/20 09/07/20 09/07/20 05:38 05:38 07:30 WBC RBC Hgb Hct MCV MCH MCHC RDW Std Deviation RDW Coeff of Jaclyn Plt Count MPV Immature Gran % (Auto) Neut % (Auto) Lymph % (Auto) [place] % (Auto) Eos % (Auto) Baso % (Auto) Neut # (Auto) Lymph # (Auto) [place] # (Auto) Eos # (Auto) Baso # (Auto) Immature Gran # (Auto) PT INR Sodium 135 L Potassium 4.2 Chloride 104 Carbon Dioxide 25 Anion Gap 7.0 BUN 14 Creatinine 0.98 Est Cr Clr Drug Dosing 61.2 Est GFR ( Amer) 81.7 Est GFR (Non-Af Amer) 70.5 BUN/Creatinine Ratio 14.4 Glucose 124 H POC Glucose 143 H Estimat Average Glucose 131 Hemoglobin A1c 6.2 H Calcium 9.2 Total Bilirubin 0.7 AST 61 H ALT 34 Alkaline Phosphatase 66 Total Creatine Kinase 297 CK-MB (CK-2) CK/CKMB % Calc Troponin I NT-Pro-B Natriuret Pep Total Protein 7.0 Albumin 3.0 L Globulin 4.0 Albumin/Globulin Ratio 0.7 L 09/07/20 09/07/20 09/07/20 08:33 11:37 14:45 WBC RBC Hgb Hct MCV MCH MCHC RDW Std Deviation RDW Coeff of Jaclyn Plt Count MPV Immature Gran % (Auto) Neut % (Auto) Lymph % (Auto) [place] % (Auto) Eos % (Auto) Baso % (Auto) Neut # (Auto) Lymph # (Auto) [place] # (Auto) Eos # (Auto) Baso # (Auto) Immature Gran # (Auto) PT INR Sodium Potassium Chloride Carbon Dioxide Anion Gap BUN Creatinine Est Cr Clr Drug Dosing Est GFR ( Amer) Est GFR (Non-Af Amer) BUN/Creatinine Ratio Glucose POC Glucose 275 H 286 H Estimat Average Glucose Hemoglobin A1c Calcium Total Bilirubin AST ALT Alkaline Phosphatase Total Creatine Kinase 320 H CK-MB (CK-2) 16.8 H CK/CKMB % Calc 5.3 H Troponin I 3.460 H* NT-Pro-B Natriuret Pep 17144 H Total Protein Albumin Globulin Albumin/Globulin Ratio Diagnostic Findings Telemetry personally reviewed: Was noted to be in sinus with third-degree heart block with a ventricular skipped rhythm at 40 beats per minute during evaluation. Chest x-ray 09/07/2020: Chronic interstitial lung disease. Left greater than right bilateral pulmonary opacities mildly progressed from comparison. Radiology has interpreted as possible viral pneumonia. ECGs personally reviewed: ECG 09/07/2020 at 6:40 a.m.: Probable sinus tachycardia 110 beats per minute. RBBB. LVH. ECG 09/07/2020 8:16 a.m.: Tachycardia 115 beats per minute. No definite P waves noted. Right bundle branch block. Septal infarct. ECG 09/07/2020 at 11:11 a.m.: Sinus bradycardia with third-degree heart block and ventricular escape rhythm at 40 beats per minute. LBBB pattern. Medications Administered Current Inpatient Medications Acetaminophen (Acetaminophen 325 Mg Tab) 650 mg PO Q4H PRN PRN Reason: Pain or Fever Stop: 10/06/20 06:46 Albuterol (Albut/Ipratrop 3mg/0.5mg Neb 3 Ml Vial) 3 ml NEB QIDR [facility] Stop: 10/06/20 06:59 Last Admin: 09/07/20 10:21 Dose: 3 ml Documented by: Aspirin (Aspirin 81 Mg Ectab) 81 mg PO QAM [facility] Stop: 10/06/20 08:59 Last Admin: 09/07/20 08:19 Dose: 81 mg Documented by: Dextrose (Dextrose 50% 50 Ml Syringe) 25 - 50 ml IV UD PRN; Protocol PRN Reason: Hypoglycemia Protocol Stop: 10/06/20 06:46 Ezetimibe (Ezetimibe 10 Mg Tablet) 10 mg PO QAM [facility] Stop: 10/06/20 08:59 Last Admin: 09/07/20 08:13 Dose: 10 mg Documented by: Glucagon (Glucagon For Inj 1 Mg Vial) 1 mg SQ UD PRN; Protocol PRN Reason: Hypoglycemia Protocol Stop: 10/06/20 06:46 Glucose (Glucose 10 Tabs/Tube) 4 - 8 tabs PO UD PRN; Protocol PRN Reason: Hypoglycemia Protocol Stop: 10/06/20 06:46 Glucose (Glucose 40% Gel 15 Gm Tube) 15 - 30 gm PO UD PRN; Protocol PRN Reason: Hypoglycemia Protocol Stop: 10/06/20 06:46 Guaifenesin (Guaifenesin 600 Mg Tabcr) 600 mg PO Q12 [facility] Stop: 10/06/20 08:59 Last Admin: 09/07/20 08:23 Dose: 600 mg Documented by: Ceftriaxone Sodium 2,000 mg/ (Dextrose) 70 mls @ 100 mls/hr IV DAILY [facility]; Protocol Stop: 09/13/20 08:59 Last Infusion: 09/07/20 09:27 Dose: Infused Documented by: Azithromycin 500 mg/ Dextrose 255 mls @ 125 mls/hr IV DAILY [facility] Stop: 09/13/20 08:59 Last Infusion: 09/07/20 12:08 Dose: Infused Documented by: Methylprednisolone 80 mg/ (Syringe) 1.28 mls @ 1.5 mls/min IV Q8H [facility] Stop: 10/07/20 15:59 Last Admin: 09/07/20 15:13 Dose: 1.5 mls/min Documented by: Dopamine HCl/Dextrose (Dopamine / D5w) 400 mg in 250 mls @ 33.788 mls/hr IV .Q7H24M [facility]; Protocol Stop: 10/07/20 12:44 Last Admin: 09/07/20 13:23 Dose: 10 mcg/kg/min, 33.8 mls/hr Documented by: Furosemide 100 mg/ Dextrose 100 mls @ 1 mls/hr IV .Q24H [facility] Stop: 10/07/20 13:14 Last Admin: 09/07/20 13:23 Dose: 5 mg/hr, 5 mls/hr Documented by: Insulin Aspart (Insulin Aspart 100 Units/Ml 3 Ml Pen) 0 units SC Q4 [facility]; Protocol Stop: 10/07/20 14:59 Last Admin: 09/07/20 15:13 Dose: 9 units Documented by: Lidocaine (Lidocaine 5% 1 Patch) 1 patch TD DAILY [facility] Stop: 10/06/20 08:59 Last Admin: 09/07/20 07:23 Dose: Not Given Documented by: Miscellaneous ([Carboxymethylcellulose 1% Opth] Order Awaiting Action) 1 ea N/A QS [facility] Stop: 10/06/20 07:59 Last Admin: 09/07/20 08:48 Dose: Not Given Documented by: Miscellaneous (Remove Lidoderm Patch) 1 ea N/A DAILY@2100 [facility] Stop: 10/06/20 20:59 Last Admin: 09/06/20 21:22 Dose: Not Given Documented by: Miscellaneous (Carbohydrates For Hypoglycemia ) 15 - 30 gm PO UD PRN PRN Reason: Hypoglycemia Protocol Stop: 10/06/20 06:46 Miscellaneous (Insulin Infusion~Pending Order) 1 ea N/A QS [facility] Stop: 10/07/20 15:59 Miscellaneous Information (Pharmacy Glycemic Mgmt Consult) 1 ea N/A UD PRN PRN Reason: Consult Stop: 10/07/20 14:57 Morphine Sulfate (Morphine Sulfate 2 Mg/Ml Carp) 2 mg IV Q2H PRN PRN Reason: Chest Pain Stop: 09/21/20 08:21 Ondansetron HCl (Ondansetron Inj 2 Mg/Ml 2 Ml Vial) 4 mg IV Q6H PRN PRN Reason: Nausea Stop: 10/06/20 06:46 Pantoprazole Sodium (Pantoprazole 40 Mg Tab) 40 mg PO DAILY [facility] Stop: 10/06/20 08:59 Last Admin: 09/07/20 08:19 Dose: 40 mg Documented by: Ranolazine (Ranolazine 500 Mg Er Tab) 1,000 mg PO BID [facility] Stop: 10/06/20 08:59 Last Admin: 09/07/20 08:13 Dose: 1,000 mg Documented by: Warfarin Sodium (Warfarin Sod 5 Mg Tab) 5 mg PO PM [facility] Stop: 10/06/20 20:59 Last Admin: 09/06/20 22:09 Dose: 5 mg Documented by: PG Care Time/CCT Total # of Minutes Spent Total Time Spent with Patient: Total time spent is greater than 50% in coordination of care (as documented) at patient's floor/unit and/or counseling patient: Critical Care Time: Yes Total Critical Care Time: 60 Coding Level of Care Code None Diagnoses Non-ST elevation (NSTEMI) myocardial infarction I21.4 CAD (coronary artery disease) I25.10 History of coronary artery bypass graft x 3 Z95.1 H/O mechanical aortic valve replacement Z95.2 S/P coronary artery stent placement Z95.5 Pulmonary fibrosis J84.10 Multifocal pneumonia J18.9 Anticoagulant long-term use Z79.01 HTN (hypertension) I10 HLD (hyperlipidemia) E78.5 Mitral regurgitation I34.0 Cardiomyopathy I42.9 Complete heart block I44.2 Acute systolic (congestive) heart failure I50.21 Additional Codes Critical Care Time - Critical Care Time: Yes ([id number]) Comment 60 min critical care time [id number]
--- NOTE | 2020-09-07 13:55 | Critical Care Consultation ---
Date of Consultation September 07, 2020 Assessment & Plan (1) Complete heart block: Reason Critically Ill: 85 y/o male w/ PMHx of CAD (CABGx3 and stent), ILD, mechanical aortic valve on Warfarin, admitted for dyspnea on exertion and generalized pain yesterday who developed complete heart block today after use of carvedilol. He was determined to be a poor surgical candidate for cardiac cath or transvenous pacing and is being treated w/ lasix drip and dopamine support, complete heart block since resolved. He is currently being managed in the ICU for high risk of hemodynamic instability. Patient is DNR/DNI and does not want POA or family members contacted. NEURO - CAM ICU: negative CARDIAC - acute vs acute on chronic systolic heart failure - 09/06/20 echo: EF 30%. moderately dilated LV w/ severely reduced systolic function. Global hypokinesis w/ severe hypokinesis to akinesis of inferior wall. - Comparison w/ 08/28/19 echo: EF 55-60%. No RWMA. Severe concentric LVH, asymmetric. Mildly dilated descending aorta 4.4cm, unchanged. - RWMA would be concerning for ischemic event. ecg at 11AM w/ complete heart block w/ ventricular rate of 40 w/ new LBBB(?) - cardiac cath deferred at this time because of volume overload and supratherapeutic INR - risk of respiratory failure outweighing benefits - continue IV Lasix drip - on dopamine drip. will titrate down as able. consider dobutamine drip as alternative for better inotropic support complete heart block, resolved - s/p carvedilol as per above - lyme Ab neg. will check anaplasmosis smear elevated troponin - consider increased demand in setting of volume overload. also consider ischemia. - 0.076->0.456->2.95->2.71->3.46 - continue trending until peaked - denied chest pain today, though has significant cardiac hx CAD s/p CABGx3 and stent - interventional cardiology considered cath today but deferred because poor candidate and supratherapeutic INR - continue home ranolazine mechanical aortic valve (year 2001) - on warfarin, currently held hypertension - currently hypotensive, hold home HCTZ this admission hyperlipidemia - continue home Zetia RESP pulmonary fibrosis history of TB and RUL, RML partial lobectomy - not on home O2 - supp O2, titrate to >90 - continue home Mucinex - duoneb treatments GI - - DM2 and heart healthy diet RENAL/LYTES - - daily BMP and replete electrolytes as needed - - persaud, monitor Is/Os ENDO - prediabetes (A1C 6.2), not previously requiring medications - BSGs upper 200s, SSI w/ goal 140-180 - likely 2/2 steroids HEME - chronic anticoagulation use for mechanical valve - hold home warfarin. will start on heparin drip when INR <2.5 (3.2 this AM). - daily CBC and INR ID - presumed multifocal pneumonia - on daily ceftriaxone 2g IV and azithromycin 500mg IV (both started 09/06/20) - on methylpred 80 mg IV q8h - will check procalc. CTA chest findings may be more consistent w/ chronic pulmonary fibrosis - mild leukocytosis 11.1->16.8, likely from steroids LINES/IV ACCESS - PIVs DVT PROPHYLAXIS - - on chronic anticoagulation warfarin DISPO ICU (2) Acute on chronic systolic heart failure: (3) Cardiomyopathy: (4) Elevated troponin: (5) Pulmonary fibrosis: (6) Multifocal pneumonia: (7) Anticoagulant long-term use: (8) HLD (hyperlipidemia): (9) HTN (hypertension): (10) History of tuberculosis: (11) History of coronary artery bypass graft x 3: (12) H/O mechanical aortic valve replacement: Supervising Physician Co-Signing Physician Notes Dr. Fernando was the resident-physician during care of patient. I separately evaluated patient for dorman portions of the history and the exam. I was present during the critical portion of medical decision making, and I discussed the case with the resident. I generally agree with the findings and plan except for any additions/exceptions noted. CT chest 09/06/20 personally reviewed: Biapical scarring, increased reticular thickening peripherally bilateral upper lobe Bilateral groundglass opacities appreciated in the lower lobes as well as the lingula, bronchiectasis bilateral lower lobes No pleural effusion Patient seen and examined at bedside. Patient has history of coronary artery disease s/p CABG as well as stent placement, AVR mechanical, on warfarin, pulmonary fibrosis was on the floor was found to be hypotensive after he was given 6.25 of metoprolol for blood pressure Chest x-ray shows worsening pulmonary infiltrate especially on the left side. Patient went into junctional rhythm and third-degree AV block, he was started on dopamine and sent to [facility]. In the [facility] because of the supratherapeutic INR as well as patient's poor status it was deferred to put a pacemaker in or have a catheter in. Patient was sent to the ICU for further management At the time of examination patient was saturating 94% on 4 L nasal cannula, he was not complaining of any shortness of breath. He stated he felt better. Denies any chest pain. No abdominal pain. No nausea or vomiting. He was on dopamine 5, Lasix drip at 5. Heart rate 109. Constitutional: No acute distress HEENT: EOMI, PERRLA Respiratory system: Decreased air entry bilaterally, no wheeze, no rhonchi, positive crackles bilateral lower lobes CVS: S1-S2 positive, mechanical heart sound appreciated Abdomen: Soft, nontender, nondistended, positive bowel sounds x4 Extremities: +2 pulses bilaterally radialis/ dorsalis pedis, no cyanosis, no edema Neuro: Awake alert oriented x3 Psych: Normal mood and affect G/U: Positive Persaud Plan: Strict in and out Try to diurese the patient Patient is not in any acute distress respiratory vaughn and his blood pressure is well controlled I will try to taper off dopamine if possible If the patient does not have good urine output then will consider adding dobutamine Will go down on Solu-Medrol 40 mg daily tomorrow and then discontinue over the next couple of days Groundglass opacities on the CAT scan could represent pulmonary edema, pneumonia versus worsening of underlying pulmonary fibrosis. Continue with antibiotics Follow-up procalcitonin Cardiology on board. Case was discussed with Dr. Moreno If there is any respiratory distress will put the patient on BiPAP. Patient is DNR/DNI. No intubations/no CPR. He is okay to have central line placed and if need be. I have personally spent 68 minutes of critical care time in the direct management of this patient. This is a life/limb threatening event. This includes time spent evaluating patient, direct bedside care, chart review, placing orders, interpretation of diagnostic studies, discussion with con sultants, patient, and/or family members regarding treatment decisions, as well as other required patient management activities. This time is exclusive of all separately billable procedures, and teaching time and separate from and in addition to any other critical care service time. History of Present Illness Reason for Consultation: heart block, hypervolemia Requesting Physician: Dr. Jerel Hooper Attending Physician: Dr. Farias History of Present Illness Russ Echavarria is an 85 y/o male w/ PMHx of CAD (CABGx3 and 5 stents, separate events), pulmonary fibrosis, mechanical AV valve on warfarin, HTN, HLD, TB s/p partial lung lobectomies, and remote 30 pack year tobacco hx who presented w/ 1.5 month of dyspnea on exertion and chronic generalized pains (myalgias and arthralgias w/ exacerbation overnight the morning of [facility] arrival. The pains were from head to feet, involving his extremities, back, chest, legs. He felt radiation of pain down the underside of both of his arms down to the fingers, but denies numbness or tingling. He did not have fevers, sweats, nausea, fatigue. No exacerbating or alleviating factors. Patient states had previously seen the [place] and was treated for these symptoms as arthritis. He notes the symptoms felt dissimilar from his prior heart attacks. Patient notes he has had Lyme in distant past and lives in the [facility], but denies recent tick bites and denies rashes. This morning, day 2 of his hospitalization, patient noted mid back pain that he attributed to the bed. Not exertional or positional. Nitro did not alleviate the pain, but morphine helped significantly. He denies associated chest pain or systemic symptoms. Currently (~330pm while on Lasix and dopamine drips), patient states he feels well. He feels his breathing has improved. He has mild 2/10 severity mid-back discomfort, improved from earlier. No chest pain. Other histories: No home O2. Denies PARESH. 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 Quit tobacco in 1979, previously 1/2ppd. TB in 1960, treated w/ 6 months of therapy. Allergies Allergy/AdvReac Type Severity Reaction Status Date / Time aspirin AdvReac Intermediate high doses Unverified 09/06/20 03:17 burn his stomach amlodipine AdvReac Unknown Verified 09/06/20 03:24 atorvastatin AdvReac Unknown Verified 09/06/20 03:24 ciprofloxacin AdvReac Unknown Verified 09/06/20 03:24 doxycycline AdvReac Unknown Verified 09/06/20 03:28 felodipine AdvReac Unknown Verified 09/06/20 03:20 fluvastatin AdvReac Muscle Pain Verified 09/06/20 03:23 gabapentin AdvReac Confusion Verified 09/06/20 03:23 hydralazine AdvReac Unknown Verified 09/06/20 03:20 hydrochlorothiazide AdvReac Unknown Verified 09/06/20 03:23 isosorbide AdvReac Unknown Verified 09/06/20 03:23 labetalol AdvReac Unknown Verified 09/06/20 03:27 levothyroxine AdvReac Unknown Verified 09/06/20 03:24 lisinopril AdvReac Chest Pain Verified 09/06/20 03:26 loratadine AdvReac Unknown Verified 09/06/20 03:26 losartan AdvReac Unknown Verified 09/06/20 03:26 methyldopa AdvReac Headache Verified 09/06/20 03:28 metoprolol AdvReac Unknown Verified 09/06/20 03:20 nifedipine AdvReac Unknown Verified 09/06/20 03:27 nitrofurantoin AdvReac Dizziness Verified 09/06/20 03:28 omeprazole AdvReac Muscle Pain Verified 09/06/20 03:18 simvastatin AdvReac Muscle Pain Verified 09/06/20 03:18 spironolactone AdvReac Nausea Verified 09/06/20 03:18 valsartan AdvReac Unknown Verified 09/06/20 03:18 Home Medications Medication Instructions Recorded Confirmed Type aspirin 81 mg tablet,delayed 81 mg PO QAM 08/28/19 09/06/20 History release ezetimibe 10 mg tablet 10 mg PO QAM 08/28/19 09/06/20 History finasteride 5 mg tablet 5 mg PO PM 08/28/19 09/06/20 History furosemide 20 mg tablet (Lasix) 20 mg PO QAM 08/28/19 09/06/20 History glycerin (adult) 1 supp VA DAILY 08/28/19 09/06/20 History hydralazine 50 mg tablet 50 mg PO QID 08/28/19 09/06/20 History hydrochlorothiazide 25 mg tablet 25 mg PO QAM 08/28/19 09/06/20 History methocarbamol 500 mg tablet 500 mg PO HS PRN 08/28/19 09/06/20 History nitroglycerin 0.2 mg/hr 1 patch TRANSDERMAL QAM 08/28/19 09/06/20 History transdermal 24 hour patch nitroglycerin 0.4 mg/hr 1 patch TRANSDERMAL QAM 08/28/19 09/06/20 History transdermal 24 hour patch ranolazine 500 mg tablet,extended 1,000 mg PO BID 08/28/19 09/06/20 History release,12 hr tamsulosin 0.4 mg capsule 0.4 mg PO HS 08/28/19 09/06/20 History warfarin 5 mg tablet 5 mg PO PM 08/28/19 09/06/20 History Olodaterol/Tiotrop 2 inh PO DAILY 09/06/20 09/06/20 History carboxymethylcellulose sodium 1 % 1 drp OPHTHALMIC (EYE) QID 09/06/20 09/06/20 History eye drops coenzyme Q10 200 mg capsule 200 mg PO DAILY 09/06/20 09/06/20 History fluticasone propionate 50 2 spray INTRANASAL DAILY 09/06/20 09/06/20 History mcg/actuation nasal spray,suspension lidocaine 5 % topical patch 1 patch TOPICAL DAILY 09/06/20 09/06/20 History nitroglycerin 0.3 mg sublingual 0.3 mg SUBLINGUAL UD PRN 09/06/20 09/06/20 History tablet pantoprazole 20 mg tablet,delayed 20 mg PO DAILY 09/06/20 09/06/20 History release potassium chloride 20 mEq 20 meq PO DAILY 09/06/20 09/06/20 History tablet,extended release tramadol 50 mg tablet 50 mg PO Q6H PRN 09/06/20 09/06/20 History triamcinolone acetonide 0.025 % 1 applic TOPICAL BID 09/06/20 09/06/20 History topical cream Patient History Medical History Anticoagulant long-term use CAD (coronary artery disease) History of tuberculosis HLD (hyperlipidemia) HTN (hypertension) Mitral regurgitation Surgical History H/O mechanical aortic valve replacement History of coronary artery bypass graft x 3 Hx of cholecystectomy Hx of rotator cuff surgery S/P coronary artery stent placement S/P lobectomy of lung Family History Other Heart disease Social History Smoking Status: Former smoker Tobacco Type: Cigarettes Number of Years Since Quit: 40; Second Hand Exposure: No; Hx Alcohol Use: No Hx Substance Use: No Preferred Language: Belarusian Communication Ability: Effective Autopsy Assistant Required: No Beliefs That Will Affect Care: None Current Living Situation: Alone Other Information That Helps Us Care for You: No Feels Safe at Home: Yes Safety Concerns: Feels Safe At This Time Assistive Devices: Denture - Upper, Denture - Lower and Oxygen - Continuous Review of Systems Review of Systems: Constitutional: Denies fever, chills, weight change (denies weight gain specifically). Eyes: Denies blurry vision, vision changes ENT: Denies sore throat, sinus pain. Throat feels slightly dry. Cardiovascular: Denies chest pain, chest pressure, palpitations, extremity swelling Respiratory: Denies shortness of breath, difficulty breathing. +chronic cough productive of white sputum Gastrointestinal: Denies abdominal pain, nausea, vomiting, diarrhea. +intermittent chronic constipation, relieved w/ stool softeners Genitourinary: +persaud Musculoskeletal: Denies weakness. Denies other pains. Neurological: Denies headache, numbness, tingling, focal weakness. Denies dizziness or lightheadedness. Physical Exam Physical Exam: General: Grossly. NAD. Cooperative. Conversational. HEENT: Atraumatic, normocephalic. EOMI. PERRL. Pulm: Bilateral mid and lower lung hinojosa have loud crackles on inspiration. Brief end expiratory wheeze on right. Symmetrical chest rise. No respiratory distress. Cardiac: RRR, -mrg. Radial pulses intact and symmetrical. Trace BLE. Abdominal: Nontender, nondistended, soft. Integumentary: No rashes of extremities or face grossly. Results & Data Results & Data ([facility]) Vital Signs (Past 12 Hours) Vital Signs Temp Pulse Pulse Pulse Resp BP Pulse Ox 09/07/20 13:29 98 H 20 94/63 L 93 09/07/20 13:22 79 20 86/52 L 92 09/07/20 13:03 90 20 89/49 L 92 09/07/20 12:47 44 L 20 98/48 L 92 09/07/20 12:36 40 L 20 120/49 L 95 09/07/20 12:09 39 L 24 101/48 L 09/07/20 11:04 52 L 106/58 L 09/07/20 10:21 98 H 20 95 09/07/20 08:00 36.9 C 109 H 100 H 18 142/78 H 96 09/07/20 07:10 109 H 20 87 L 09/07/20 03:22 36.8 C 101 H 20 121/63 90 09/07/20 05:38 09/07/20 05:38 Diagnostic Findings Cervical Spine CT 09/06/20 02:53 CT OF THE CERVICAL SPINE IMPRESSION: 1. No acute fracture or traumatic malalignment. 2. Mild degenerative changes as detailed above. Chest CTA 09/06/20 02:53 CT ANGIOGRAM OF THE CHEST COMBO IMPRESSION: 1. No evidence of aortic dissection or significant dilatation. Ectasia of ascending aorta. There is no aortic wall hematoma is seen. 2. Four-chamber cardiomegaly. Status post CABG. Atherosclerosis. Prosthetic aortic valve. 3. Interstitial lung disease, non-UIP pattern. Possibly superimposed infiltrates within bilateral lower lobes and left upper lobe. Short-term follow- up in 4-6 weeks is recommended to document improvement/resolution. 4. Mildly dilated pulmonary artery which could be seen in pulmonary hypertension. 5. The rest of findings as above. Thoracic Spine CT 09/06/20 02:53 CT OF THE THORACIC SPINE IMPRESSION: No acute thoracic spine fracture or subluxation. Chest X-Ray 09/07/20 08:19 XR chest 1V portable IMPRESSION: 1. Cardiomegaly with chronic interstitial lung disease. 2. Left greater than right bilateral pulmonary opacities have mildly progressed from comparison. Findings are suspicious for a superimposed infectious or inflammatory pneumonitis, possibly viral pneumonia. Resident Activity Tracking Resident Involvement: Resident Care Provided Care Provided: Adult [facility] Medicine
[2020-09-07] MEDS ORDERED: INSULIN GLARGINE SOLOSTAR 100 UNITS/ML 3 ML PEN SC STA (14:55)
[2020-09-07] MEDS ORDERED: PHARMACY GLYCEMIC MGMT CONSULT PRN (14:58)
--- NOTE | 2020-09-07 15:10 | Pharmacy Report ---
Pharmacy Glycemic Short Note 2 - Date of Service September 07, 2020 - Glycemic Short BSG Results (Last 24 hours): 09/06/20 09/06/20 09/07/20 16:36 20:57 05:38 Glucose 124 H POC Glucose 199 H 209 H 09/07/20 09/07/20 09/07/20 07:30 11:37 14:45 Glucose POC Glucose 143 H 275 H 286 H OUTPATIENT ANTIDIABETIC REGIMEN: * N/A * A1C 6.2 % ASSESSMENT: * Admitted to ICU following cath, patient currently on dopamine infusion, lasix drip * BSG elevated in high 200s, received 125 mg x1 dose of solu-medrol dose this morning and is now on scheduled 80 mg TID * Will begin with ICU hyperglycemia protocol, with weight toward novolog. If BSGs unable to be controlled will start insulin infusion. PLAN FOR INPATIENT GLYCEMIC CONTROL: * Hold outpatient oral diabetes medications * Basal insulin * Lantus 23 units SQ x1 * Bolus insulin * NovoLog per scale ACHS or Q6hrs while NPO * Goal Range: Protocol * Correction Factor: Per protocol scale * Nutritional / Prandial insulin per carb ratio of 1 unit per 11 grams CHO consumed
[2020-09-07] MEDS ORDERED: methylPREDNISolone 80 MG in SYRINGE 0 ML IV SCH (16:00)
[2020-09-07] MEDS ORDERED: FUROSEMIDE 40 MG in SYRINGE 0 ML IV SCH (16:00)
--- NOTE | 2020-09-07 17:15 | Billing Data ---
Date of Service September 07, 2020 Coding Level of Care Code Critical Care 1st 30-74 mins Time Spent (min) 68
[2020-09-07 18:20] LABS: Albumin Level 3.1 gm/dl (3.4-5.0); BUN Creatinine Ratio 14.1 (10-20); Calcium 8.9 mg/dl (8.5-10.1); Creatinine Clr Calc Pharmacy 35.9 ml/min; Est GFR (African American) 42.9 ml/min; Potassium 3.9 mmol/L (3.5-5.1)
[2020-09-07 18:36] LABS: Albumin Globulin Ratio 0.7 (0.9-2); Bilirubin,Total 0.5 mg/dl (0.2-1); Globulin 4.6 gm/dl (2.5-4.0); Total Protein 7.7 gm/dl (6.4-8.2); Troponin I 4.58 ng/ml (0-0.045)
--- NOTE | 2020-09-07 18:48 | Communication Note ---
Date of Service: September 07, 2020 Vitals stable at 1819. No current SOB. Patient feels and appears well. 140/64. 89 HR. Creatinine bumped from 0.98->1.67 since this morning. Stopping the do pamine drip and the 5mg/hr lasix drip at this time. Night team will order one- time dose medications if needed. Will restart home dose 20 mg PO lasix qam starting tomorrow. Plan discussed w/ provider engagement executive attending.
[2020-09-07] MEDS ORDERED: POTASSIUM CHLORIDE PWD 20 MEQ PACK PO ONE (19:15)
--- NOTE | 2020-09-07 23:17 | Billing Data ---
Date of Service September 07, 2020 Coding Level of Care Code 48779 Initial Inpt Care Lvl 3
[2020-09-08] MEDS: INSULIN ASPART 100 UNITS/ML 3 ML PEN SC SCH ×5 (00:18→19:10)
[2020-09-08] MEDS ORDERED: DOPamine 400MG / 250ML D5W IV ONE (03:34)
[2020-09-08] MEDS: DOPamine / D5W 400 MG/250 ML BAG IV SCH ×3 (03:35→19:59)
[2020-09-08] MEDS ORDERED: ATROPINE SULFATE 0.1 MG/ML 10ML SYR IV ONE (03:35)
[2020-09-08] MEDS ORDERED: STAT IV Infusion **Titration per Protocol STA ×2 (03:49→05:36)
[2020-09-08] MEDS ORDERED: ATROPINE SULFATE 0.1 MG/ML 10ML SYR IV STA ×2 (03:50)
[2020-09-08 04:05] LABS: Hemoglobin 11.5 g/dL (14.0-18.0); Mean Corpuscular Hemoglobin 28.4 pg (25-34); Mean Corpuscular Hgb Conc 32.9 g/dL (32-36); Mean Corpuscular Volume 86.4 fL (80-100); Mean Platelet Volume 10.2 fL (7.4-10.4); Platelet Count 237 K/uL (130-400); RDW Coefficient of Variation 17.3 % (11.5-14.5); Red Blood Count 4.05 M/uL (4.7-6.1); White Blood Count 24.22 K/uL (4.8-10.8)
[2020-09-08] MEDS ORDERED: fentaNYL citrate 100 MCG/2 ML VIAL IV STA (04:08)
[2020-09-08] MEDS ORDERED: fentaNYL citrate 100 MCG/2 ML VIAL ONE (04:10)
[2020-09-08] MEDS ORDERED: MIDAZOLAM HCL 1 MG/ML 2ML VIAL ONE ×2 (04:12→04:35)
[2020-09-08 04:15] LABS: Albumin Globulin Ratio 0.8 (0.9-2); Albumin Level 3.1 gm/dl (3.4-5.0); BUN Creatinine Ratio 18.3 (10-20); Bilirubin,Total 0.8 mg/dl (0.2-1); Calcium 8.9 mg/dl (8.5-10.1); Creatinine Clr Calc Pharmacy 34.7 ml/min; Est GFR (African American) 41.1 ml/min; Est GFR (Non-African American) 35.5 ml/min; Globulin 4.1 gm/dl (2.5-4.0); Magnesium 2.7 mg/dl (1.8-2.4); Phosphorus 5.6 mg/dl (2.5-4.9); Potassium 5.2 mmol/L (3.5-5.1); Total Protein 7.2 gm/dl (6.4-8.2)
[2020-09-08] MEDS ORDERED: GLUCAGON 5 MG in SYRINGE 0 ML IV ONE (04:15)
[2020-09-08 04:18] LABS: INR 4.3 (0.9-1.1); Prothrombin Time 38.7 Seconds (9.0-12.0)
[2020-09-08 04:25] LABS: Immature Granulocytes # (auto) 0.08 K/uL (0.00-0.02); Immature Granulocytes % (auto) 0.3 %; Lymphocytes % (auto) 5.4 %; Monocytes # (auto) 1.28 K/uL (0.11-0.59); Monocytes % (auto) 5.3 %; Neutrophils # (auto) 21.56 K/uL (1.4-6.5); Polychromasia 1+
[2020-09-08] MEDS ORDERED: MIDAZOLAM HCL 1 MG/ML 2ML VIAL IV STA (04:30)
[2020-09-08] MEDS ORDERED: niCARdipine HCL INJ 2.5 MG/ML 10 ML AMP ONE (04:44)
[2020-09-08] MEDS ORDERED: HEPARIN (PORCINE) 1000 UNIT/ML 10 ML (CATH LAB USE ONLY) ONE (04:44)
[2020-09-08] MEDS ORDERED: NITROGLYCERIN/D5W 100MCG/ML 20ML SYR ONE (04:45)
[2020-09-08] MEDS ORDERED: DOBUTamine 500MG / 250ML D5W (CATH LAB USE ONLY) ONE (05:07)
--- NOTE | 2020-09-08 05:14 | Communication Note ---
Date of Service: September 08, 2020 This morning patient bradycardic with heart rate initially in the 50s and became increasingly hypoxic, hypotensive, and diaphoretic. Patient remained oriented at this time and he was given 0.5 mg atropine x2 without improvement of heart rate and was started on a dopamine drip. Blood pressure initially improved, however he did remain dizzy and stated that he felt clammy. He denied chest pain. His heart rate did remain in the 50s. He was placed on BiPAP and oxygen improved. EKG showed complete heart block. Labs were collected and pending. Patient's heart rate began to decrease and he became increasingly hypotensive and was not mentating well. At this point decision was made to start subcutaneous pacing and initiate heart alert. Patient was given 100 mcg IV fentanyl and 1 mg Versed and was paced initially at a heart rate of 60. However, he remained somewhat hypotensive and heart rate was increased to 80 at which his blood pressure improved. I did speak with valance cutter and patient is currently in route to Tooling Specialist to undergo transvenous temporary pacer. Unfortunately, patient refused primary contact/POA and we are instructed to only contact family in the event of his . His prognosis remains poor however his CODE STATUS is DNR/DNI in the event of cardiac arrest. We will continue further management in ICU post cath. CRITICAL CARE TIME - I have personally spent 50 minutes of critical care time in the direct management of this patient. This is a life/limb threatening event. This includes time spent evaluating patient, direct bedside care, chart review, placing orders, interpretation of diagnostic studies, discussion with consultants, patient, and family members, as well as other required patient management activities. This time is exclusive of all separately billable procedures, and teaching time and separate from and in addition to any other critical care service time. Coding Level of Care Code Critical Care 1st 30-74 mins
--- NOTE | 2020-09-08 05:46 | Operative Report ---
PG Post Operative Report Pre & Post Diagnosis Operation Date: 09/07/20 12:15 <No data on this case meets the specified criteria> Operation Date: 09/08/20 04:30 <No data on this case meets the specified criteria> Complete heart block I identified the patient and participated in the time-out.: Yes Procedure Operation Date: 09/07/20 12:15 Actual Procedures p Cineradiography w/Routine Exam - Nito Meyers MD Operation Date: 09/08/20 04:30 Actual Procedures p Ins/RemTemporary Transvenous Pacer - Nito Meyers MD Surgeon Nito Meyers MD Dairy Cattle Farm Worker [facility] Estimated Blood Loss 5 Findings Consistent with Post-Op Diagnosis Complete heart block with junctional escape rhythm Specimens None Drains None Complications None Description of Procedure Patient was brought to the cardiac Livestock Nutritionist Right side of the neck was prepped and draped in sterile fashion Under ultrasound guidance and utilizing a micropuncture, the right internal jugular vein was accessed using a single access stick A 6 [place] sheath was inserted after which a temporary wire was floated into the apex of the right ventricle and tested to capture Parameters: 1 mA; 80 bpm; ventricular paced The sheath and temporary wire was sutured in place Patient was transferred back to the ICU in stable condition Vital signs at completion of procedure Blood pressure 136/86, pulse of 79 to 81 bpm; saturating 93% on BiPAP Conclusion Complete heart block; successful temporary wire insertion to the right internal jugular vein under ultrasound guidance Multiorgan failure secondary to end-stage systolic heart failure as evidenced by increasing creatinine and the declining renal function, transaminitis and uptrending INR despite being off Coumadin, decreased mentation Recommendation Palliative care consultation is recommended given the end-stage nature of his condition and his advanced age I attest to the content of the Intraoperative Record and any orders documented therein. Any exceptions are noted below.
--- NOTE | 2020-09-08 05:49 | History & Physical Bridge Note ---
Date of Service September 08, 2020 History & Physical Bridge Note Patient is in cardiogenic shock and multiorgan failure as evidenced by an increase in BUN and creatinine, increasing lactate and increasing INR This is a case of end-stage systolic heart failure in an elderly individual Advanced mechanical circulatory support would not be possible in this individual with a mechanical aortic heart valve Cardiac catheterization and PCI will be an exercise in futility given the multiorgan failure as documented in my progress note of September 07, 2020 Prognosis was invariably poor at the very onset of his presentation to the hospital Temporary wire placed because of complete heart block Will strongly recommend palliative care consultation at this point
--- NOTE | 2020-09-08 07:24 | Critical Care Progress Note ---
Date of Service September 08, 2020 Assessment & Plan (1) Complete heart block: Plan: Reason Critically Ill: 85 y/o male w/ PMHx of CAD (CABGx3 and stent), pulmonary fibrosis, mechanical aortic valve on Warfarin, admitted for dyspnea on exertion and generalized pain who developed complete heart block after use of carvedilol in the context of acute systolic heart failure likely precipitated by ischemia. The complete heart block transiently resolved, but later returned, requiring placement of transvenous catheter. He is currently being managed in the ICU for high risk of hemodynamic instability and is on a dobutamine drip. Patient is DNR/DNI and does not want POA or family members contacted. At admission, he desired other aggressive interventions such as central access, cardiac catheterization, and pacemaker, if indicated. Update: Patient prefers change to comfort measures status. As of 11:45 AM, patient is eating his lunch and will make the change formally later. He states that he is aware of consequences of stopping treatment (will likely pass within days). Patient states his reason for this decision is that he wants to end the suffering from having all the stuff done. I reiterated the alternative option of evaluation for permanent pacer which would allow use of medications (e.g. beta blockers) that could improve quality of life. Patient is aware. He is adamant about not contacting family (he provided number for his son Braulio) until after he passes away. After patient is changed to comfort measures status, the treatments listed below will be stopped and comfort measures order set will be ordered. Palliative team consult requested/pending. NEURO - CAM ICU: negative (negative for inattention). Not oriented to context, but otherwise oriented to person, place, and time CARDIAC - acute vs acute on chronic systolic heart failure - 09/06/20 echo: EF 30%. moderately dilated LV w/ severely reduced systolic function. Global hypokinesis w/ severe hypokinesis to akinesis of inferior wall. - Comparison 08/28/19 echo: EF 55-60%. No RWMA. Severe concentric LVH, asymmetric. Mildly dilated descending aorta 4.4cm, unchanged. - regional hypokinesis concerning for ischemic event. ecg at 11AM w/ complete heart block w/ ventricular rate of 40 w/ LBBB appearance (from ventricular escape rhythm) - severity and timing of onset of systolic CHF unclear because of limited datapoints (1 year ago and this admission) - cardiac cath not indicated for poor prognosis. considering patient's complex cardiac hx, would not be surprising if there was multivessel involvement - multiorgan involvement (Cr bump, transaminases, troponin bump) appear acutely exacerbated this admission. At admission, Cr was <1. AST/ALT were norm al. trop was .076. - patient was on Lasix drip 5mg/hr x ~5 hours on 09/06, since discontinued for rise in creatinine - on dopamine drip on 09/06, discontinued in evening. currently, on dobutamine drip 5 mcg/kg/min. Vitals stable. UOP good. Lactate downtrended. Trop peaked. - considered evaluation for permanent pacemaker which would allow treatment w/ medications of patient's heart, e.g. w/ beta blockers for improved quality of life. complete heart block, s/p transvenous pacer - s/p carvedilol as per above - lyme Ab and anaplasma smear negative - see above cardiogenic shock - likely secondary to the above - stable on dobutamine. continue elevated troponin - most likely from ischemia. would be less likely explained from demand - 0.076->0.456->2.95->2.71->3.46->4.58->7.27->6.49 - peaked as per above CAD s/p CABGx3 and stent - interventional cardiology considered cath today but deferred because poor candidate and supratherapeutic INR - hold home ranolazine mechanical aortic valve (year 2001) - on warfarin, currently held hypertension - currently on inotropic support dobutamine for hypotension and bradycardia, hold home HCTZ this admission hyperlipidemia - continue home Zetia RESP pulmonary fibrosis history of TB and RUL, RML partial lobectomy - not on home O2 - supp O2, titrate to >90. currently on 2-4L nasal cannula - continue home Mucinex - duoneb treatments GI - - DM2 and heart healthy diet RENAL/LYTES - lactic acidosis - lactate 4.9->3.5->5.5->2.1 - mild anion gap of 13 from this acute kidney injury - baseline Cr ~1.0. 1.67 (09/07) ->1.73 today - likely secondary to large amount of Lasix on 8/3 and hypoperfusion from cardiogenic shock - home lasix held. supplemental KCl PO held - f/u labs at noon hyperkalemia - daily BMP and replete electrolytes as needed. hyponatremia - 133, asymptomatic - - good persaud output w/o requiring further diuretics - 24 hour Is/Os 600 mL in 1900 mL out. cumulative 2L in 4L out - persaud, monitor Is/Os ENDO - prediabetes (A1C 6.2), not previously requiring medications - BSGs upper 200s, SSI w/ goal 140-180 - likely 2/2 steroids transaminitis - normal AST and ALT at admission -> low-mid 100s - likely 2/2 to acute systolic HF HEME - chronic anticoagulation use for mechanical valve - hold home warfarin. will start on heparin drip when INR <2.5 (4.3 this AM). - daily CBC and INR ID - presumed multifocal pneumonia - on daily ceftriaxone 2g IV and azithromycin 500mg IV (both started 09/06/20) - on methylpred 80 mg IV q8h - procalc wnl. CTA chest findings may be more consistent w/ chronic pulmonary fibrosis - leukocytosis 11.1->16.8, likely from corticosteroids LINES/IV ACCESS - PIVs. right central line. DVT PROPHYLAXIS - - chronic warfarin held for supratherapeutic INR DISPO ICU (2) Acute on chronic systolic heart failure: (3) Cardiomyopathy: (4) Elevated troponin: (5) Pulmonary fibrosis: (6) Multifocal pneumonia: (7) Anticoagulant long-term use: (8) HLD (hyperlipidemia): (9) HTN (hypertension): (10) History of tuberculosis: (11) History of coronary artery bypass graft x 3: (12) H/O mechanical aortic valve replacement: Admission and Anticipated Discharge Date Admission Date: September 06, 2020 Supervising Physician Co-Signing Physician Notes Dr. Fernando was the resident-physician during care of patient. I separately evaluated patient for dorman portions of the history and the exam. I was present during the critical portion of medical decision making, and I discussed the case with the resident. I generally agree with the findings and plan except for any additions/exceptions noted. CT chest 09/06/20 personally reviewed: Biapical scarring, increased reticular thickening peripherally bilateral upper lobe Bilateral groundglass opacities appreciated in the lower lobes as well as the lingula, bronchiectasis bilateral lower lobes No pleural effusion Patient seen and examined at bedside. Earlier this morning patient again went into complete heart block and was symptomatic He was taken to the [facility] and temporary venous pacer was placed in Time of examination patient's heart rate was actually above paced. He was on dobutamine 5 He is making good amount of urine He denies any chest pain He said that he felt better compared to earlier in the morning. No nausea or vomiting. Constitutional: No acute distress HEENT: EOMI, PERRLA, right IJ temporary pacemaker in place Respiratory system: Decreased air entry bilaterally, no wheeze, no rhonchi, positive crackles bilateral lower lobes CVS: S1-S2 positive, mechanical heart sound appreciated Abdomen: Soft, nontender, nondistended, positive bowel sounds x4 Extremities: +2 pulses bilaterally radialis/ dorsalis pedis, no cyanosis, no edema Neuro: Awake alert oriented x3 Psych: Normal mood and affect G/U: Positive Persaud Plan: In/out: -1231, urine output 1885 Continue with dobutamine. Patient labs shows potassium of 5.2 with bicarb of 18 and lactic acid of 5.5 Hyperkalemia is likely from acidosis from lactic acid. I will give 50 mg of bicarb. Patient is already making urine hopefully this will improve on its own. We will repeat BMP at 12 PM. Supratherapeutic INR. Hold warfarin for today. Given the prolonged QTC and went to change is a 30 doxycycline I have personally spent 38 minutes of critical care time in the direct management of this patient. This is a life/limb threatening event. This includes time spent evaluating patient, direct bedside care, chart review, placing orders, interpretation of diagnostic studies, discussion with consultants, patient, and/or family members regarding treatment decisions, as well as other required patient management activities. This time is exclusive of all separately billable procedures, and teaching time and separate from and in addition to any other critical care service time. Subjective Patient had diaphoresis and chest pressure overnight as well as bradycardia, hypotension. The bradycardia was refractory to atropine 0.5mg x2, dopamine, and glucagon. Heart alert was called and a transvenous catheter was placed. This AM, patient states he has mild confusion. He states he has some SOB. He denies chest pain, back pain fever/chills, or diaphoresis. He states he is hungry. Update at ~11:30am. Patient notified nursing staff that he wanted lines removed and treatment stopped. Patient repeated preference for comfort measures and to stop treatment to myself. Review of Systems Review of Systems: As per HPI Physical Exam Physical Exam: General: A&O to person, place, time, but not context. He thought he was here for for his car. When asked again 10 minutes later, he states he's here to visit family. Cooperative. Conversational. He appears tired. HEENT: Atraumatic, normocephalic. Fixed, dilated pupils (s/p atropine) Pulm: Anterior and lateral lung hinojosa auscultated. crackles at left, bilateral lateral lung hinojosa. Clear at right anterior lung field. Symmetrical chest rise. No respiratory distress. Cardiac: RRR, -mrg. [place] S2. +S3. Trace BLE. Abdominal: Nontender, nondistended, soft. Integumentary: No erythema at central or peripheral IV sites. He has pacer pads attached. Results & Data Results & Data ([facility]) Vital Signs (Past 12 Hours) Vital Signs Temp Pulse Pulse Resp BP Pulse Ox 09/08/20 07:22 36.3 C L 09/08/20 07:02 79 16 107/72 98 09/08/20 06:32 82 16 146/81 H 100 09/08/20 06:02 80 18 108/69 97 09/08/20 05:31 80 23 93 09/08/20 04:31 80 14 109/66 95 09/08/20 04:01 50 L 18 99/52 L 92 09/08/20 03:45 68 31 H 98 09/08/20 03:34 65 27 H 91/59 L 84 L 09/08/20 03:27 78 23 83/50 L 85 L 09/08/20 03:15 36.6 C 09/08/20 02:32 99 H 19 115/74 92 09/08/20 02:26 100 H 31 H 78/57 L 92 09/08/20 01:56 96 H 27 H 115/62 95 09/08/20 01:00 92 H 23 97 09/08/20 00:56 92 H 21 99 09/08/20 00:26 95 H 23 119/68 95 09/07/20 23:41 93 H 23 136/70 97 09/07/20 23:11 93 H 22 142/74 H 96 09/07/20 23:05 36.8 C 09/07/20 22:41 92 H 24 130/68 100 09/07/20 22:11 98 H 24 127/63 87 L 09/07/20 21:41 102 H 28 H 135/73 96 09/07/20 21:11 96 H 25 H 147/84 H 92 09/07/20 20:41 95 H 26 H 153/76 H 89 L 09/07/20 20:11 96 H 20 142/72 H 91 09/07/20 19:52 90 18 97 09/07/20 19:41 90 26 H 137/70 100 09/08/20 03:45 09/08/20 12:03 Laboratory Results Abnormal lab results 09/07/20 09/07/20 09/07/20 Range/Units 11:37 14:45 16:50 WBC (4.8-10.8) K/uL RBC (4.7-6.1) M/uL Hgb (14.0-18.0) g/dL Hct (42-52) % RDW Std Deviation (36.4-46.3) fL RDW Coeff of Jaclyn (11.5-14.5) % Neut # (Auto) (1.4-6.5) K/uL Jasper # (Auto) (0.11-0.59) K/uL Immature Gran # (Auto) (0.00-0.02) K/uL PT (9.0-12.0) Seconds INR (0.9-1.1) Sodium (136-145) mmol/L Potassium (3.5-5.1) mmol/L Carbon Dioxide (21-32) mmol/L Anion Gap (3-11) BUN (7-18) mg/dl Creatinine (0.6-1.4) mg/dl Glucose (70-99) mg/dl POC Glucose 275 H 286 H 225 H (70-99) mg/dl Lactate (0.4-2.0) mmol/L Phosphorus (2.5-4.9) mg/dl Magnesium (1.8-2.4) mg/dl AST (15-37) U/L ALT (12-78) U/L Troponin I (0-0.045) ng/ml Albumin (3.4-5.0) gm/dl Globulin (2.5-4.0) gm/dl Albumin/Globulin Ratio (0.9-2) 09/07/20 09/07/20 09/07/20 Range/Units 17:40 17:40 19:24 WBC (4.8-10.8) K/uL RBC (4.7-6.1) M/uL Hgb (14.0-18.0) g/dL Hct (42-52) % RDW Std Deviation (36.4-46.3) fL RDW Coeff of Jaclyn (11.5-14.5) % Neut # (Auto) (1.4-6.5) K/uL Jasper # (Auto) (0.11-0.59) K/uL Immature Gran # (Auto) (0.00-0.02) K/uL PT (9.0-12.0) Seconds INR (0.9-1.1) Sodium 133 L (136-145) mmol/L Potassium (3.5-5.1) mmol/L Carbon Dioxide (21-32) mmol/L Anion Gap (3-11) BUN 24 H D (7-18) mg/dl Creatinine 1.67 H D (0.6-1.4) mg/dl Glucose 224 H (70-99) mg/dl POC Glucose (70-99) mg/dl Lactate 4.9 H* 3.5 H* (0.4-2.0) mmol/L Phosphorus (2.5-4.9) mg/dl Magnesium (1.8-2.4) mg/dl AST 166 H (15-37) U/L ALT 124 H (12-78) U/L Troponin I 4.580 H* (0-0.045) ng/ml Albumin 3.1 L (3.4-5.0) gm/dl Globulin 4.6 H (2.5-4.0) gm/dl Albumin/Globulin Ratio 0.7 L (0.9-2) 09/07/20 09/08/20 09/08/20 Range/Units 19:49 00:16 00:43 WBC (4.8-10.8) K/uL RBC (4.7-6.1) M/uL Hgb (14.0-18.0) g/dL Hct (42-52) % RDW Std Deviation (36.4-46.3) fL RDW Coeff of Jaclyn (11.5-14.5) % Neut # (Auto) (1.4-6.5) K/uL Jasper # (Auto) (0.11-0.59) K/uL Immature Gran # (Auto) (0.00-0.02) K/uL PT (9.0-12.0) Seconds INR (0.9-1.1) Sodium (136-145) mmol/L Potassium (3.5-5.1) mmol/L Carbon Dioxide (21-32) mmol/L Anion Gap (3-11) BUN (7-18) mg/dl Creatinine (0.6-1.4) mg/dl Glucose (70-99) mg/dl POC Glucose 157 H 123 H (70-99) mg/dl Lactate (0.4-2.0) mmol/L Phosphorus (2.5-4.9) mg/dl Magnesium (1.8-2.4) mg/dl AST (15-37) U/L ALT (12-78) U/L Troponin I 7.270 H* (0-0.045) ng/ml Albumin (3.4-5.0) gm/dl Globulin (2.5-4.0) gm/dl Albumin/Globulin Ratio (0.9-2) 09/08/20 09/08/20 09/08/20 Range/Units 03:38 03:45 03:45 WBC 24.22 H (4.8-10.8) K/uL RBC 4.05 L (4.7-6.1) M/uL Hgb 11.5 L (14.0-18.0) g/dL Hct 35.0 L (42-52) % RDW Std Deviation 54.0 H (36.4-46.3) fL RDW Coeff of Jaclyn 17.3 H (11.5-14.5) % Neut # (Auto) 21.56 H (1.4-6.5) K/uL Jasper # (Auto) 1.28 H (0.11-0.59) K/uL Immature Gran # (Auto) 0.08 H (0.00-0.02) K/uL PT 38.7 H (9.0-12.0) Seconds INR 4.3 H (0.9-1.1) Sodium (136-145) mmol/L Potassium (3.5-5.1) mmol/L Carbon Dioxide (21-32) mmol/L Anion Gap (3-11) BUN (7-18) mg/dl Creatinine (0.6-1.4) mg/dl Glucose (70-99) mg/dl POC Glucose 179 H (70-99) mg/dl Lactate (0.4-2.0) mmol/L Phosphorus (2.5-4.9) mg/dl Magnesium (1.8-2.4) mg/dl AST (15-37) U/L ALT (12-78) U/L Troponin I (0-0.045) ng/ml Albumin (3.4-5.0) gm/dl Globulin (2.5-4.0) gm/dl Albumin/Globulin Ratio (0.9-2) 09/08/20 09/08/20 09/08/20 Range/Units 03:45 03:46 08:16 WBC (4.8-10.8) K/uL RBC (4.7-6.1) M/uL Hgb (14.0-18.0) g/dL Hct (42-52) % RDW Std Deviation (36.4-46.3) fL RDW Coeff of Jaclyn (11.5-14.5) % Neut # (Auto) (1.4-6.5) K/uL Jasper # (Auto) (0.11-0.59) K/uL Immature Gran # (Auto) (0.00-0.02) K/uL PT (9.0-12.0) Seconds INR (0.9-1.1) Sodium 133 L (136-145) mmol/L Potassium 5.2 H D (3.5-5.1) mmol/L Carbon Dioxide 18 L (21-32) mmol/L Anion Gap 13.0 H (3-11) BUN 32 H (7-18) mg/dl Creatinine 1.73 H (0.6-1.4) mg/dl Glucose 173 H (70-99) mg/dl POC Glucose 124 H (70-99) mg/dl Lactate 5.5 H* (0.4-2.0) mmol/L Phosphorus 5.6 H (2.5-4.9) mg/dl Magnesium 2.7 H (1.8-2.4) mg/dl AST 148 H (15-37) U/L ALT 110 H (12-78) U/L Troponin I (0-0.045) ng/ml Albumin 3.1 L (3.4-5.0) gm/dl Globulin 4.1 H (2.5-4.0) gm/dl Albumin/Globulin Ratio 0.8 L (0.9-2) 09/08/20 09/08/20 Range/Units 09:36 09:36 WBC (4.8-10.8) K/uL RBC (4.7-6.1) M/uL Hgb (14.0-18.0) g/dL Hct (42-52) % RDW Std Deviation (36.4-46.3) fL RDW Coeff of Jaclyn (11.5-14.5) % Neut # (Auto) (1.4-6.5) K/uL [place]asper # (Auto) (0.11-0.59) K/uL Immature Gran # (Auto) (0.00-0.02) K/uL PT (9.0-12.0) Seconds INR (0.9-1.1) Sodium (136-145) mmol/L Potassium (3.5-5.1) mmol/L Carbon Dioxide (21-32) mmol/L Anion Gap (3-11) BUN (7-18) mg/dl Creatinine (0.6-1.4) mg/dl Glucose (70-99) mg/dl POC Glucose (70-99) mg/dl Lactate 2.1 H* (0.4-2.0) mmol/L Phosphorus (2.5-4.9) mg/dl Magnesium (1.8-2.4) mg/dl AST (15-37) U/L ALT (12-78) U/L Troponin I 6.490 H* (0-0.045) ng/ml Albumin (3.4-5.0) gm/dl Globulin (2.5-4.0) gm/dl Albumin/Globulin Ratio (0.9-2) Diagnostic Findings cxr IMPRESSION: 1. No pneumothorax following placement of a right internal jugular vein transvenous pacer. Tip projects over the right ventricle. 2. Slight progression of left greater than right airspace opacities within the lungs which favor an infectious process superimposed upon interstitial lung disease. Asymmetric pulmonary edema could appear similar but is considered less likely. ECG Additional Comments: 8/4 ecg prior to transvenous pacer showed the chronic RBBB. No LBBB. 8/4 ecg after transvenous pacer showed ventricular-paced rhythm. Resident Activity Tracking Resident Involvement: Resident Care Provided Care Provided: Adult Hospital Medicine
[2020-09-08] MEDS: ALBUT/IPRATROP 3MG/0.5MG NEB 3 ML VIAL NEB SCH (07:32)
[2020-09-08] MEDS ORDERED: SODIUM BICARB 8.4% INJ 50 MEQ/50 ML SYR IV STA (08:09)
[2020-09-08] MEDS: ASPIRIN 81 MG ECTAB PO SCH (08:39)
[2020-09-08] MEDS: guaiFENesin 600 MG TABCR PO SCH (08:39)
[2020-09-08] MEDS: EZETIMIBE 10 MG TABLET PO SCH (08:39)
[2020-09-08] MEDS: PANTOprazole 40 MG TAB PO SCH (08:40)
[2020-09-08] MEDS: cefTRIAXone SODIUM 2,000 MG in DEXTROSE 5% 50 ML IV SCH (08:41)
[2020-09-08] MEDS ORDERED: POTASSIUM CHLORIDE PWD 20 MEQ PACK PO SCH (09:00)
[2020-09-08] MEDS ORDERED: methylPREDNISolone 40 MG in SYRINGE 0 ML IV SCH (09:00)
[2020-09-08] MEDS ORDERED: DOXYCYCLINE HYCLATE 100 MG in DEXTROSE 5% 100 ML IV SCH (09:00)
[2020-09-08] MEDS ORDERED: FUROSEMIDE 20 MG TAB PO SCH (09:00)
[2020-09-08] MEDS ORDERED: INSULIN GLARGINE SOLOSTAR 100 UNITS/ML 3 ML PEN SC SCH (09:00)
--- NOTE | 2020-09-08 09:49 | XRay Report ---
XR chest 1V portable CLINICAL HISTORY: f/u chest pain and transvenous pacemaker COMPARISON STUDY: Chest CT September 06, 2020. Chest radiograph September 07, 2020. FINDINGS: There is no pneumothorax. Interval placement of a right internal jugular transvenous pacer is noted. Tip projects over the right ventricle. Median sternotomy wires and mediastinal surgical cli ps. Cardiomegaly is unchanged. Left greater than right airspace opacities within lungs is slightly pr ogressed. IMPRESSION: 1. No pneumothorax following placement of a right internal jugular vein transvenous pacer. Tip projec ts over the right ventricle. 2. Slight progression of left greater than right airspace opacities within the lungs which favor an i nfectious process superimposed upon interstitial lung disease. Asymmetric pulmonary edema could appea r similar but is considered less likely. ACT 112: Negative or not required by law. Electronically signed by: Yovanny Lowe M.D. 09/08/2020 9:48 AM
[2020-09-08] MEDS ORDERED: ALBUT/IPRATROP 3MG/0.5MG NEB 3 ML VIAL NEB PRN (10:12)
--- NOTE | 2020-09-08 10:32 | Cardiology Progress Note ---
Date of Service September 08, 2020 Assessment & Plan (1) Complete heart block: (2) Acute systolic (congestive) heart failure: (3) Non-ST elevation (NSTEMI) myocardial infarction: (4) CAD (coronary artery disease): (5) History of coronary artery bypass graft x 3: (6) H/O mechanical aortic valve replacement: (7) S/P coronary artery stent placement: (8) Pulmonary fibrosis: (9) Multifocal pneumonia: (10) Anticoagulant long-term use: (11) HTN (hypertension): (12) HLD (hyperlipidemia): (13) Mitral regurgitation: (14) Cardiomyopathy: Plan: ASSESSMENT/PLAN: 1. Complete heart block: Now has temporary transvenous pacemaker in place. Feeling much better. His decompensation was likely related to heart block in the setting of ischemic heart disease and cardiomyopathy. Unfortunately, he has evidence of multi system organ failure with yesterday's events. We discussed options such as consideration of permanent pacemaker versus palliative approach with comfort measures. He initially asked for consideration of permanent pacemaker placement. He was informed that this may or may not make much benefit in long-term but it would potentially allow us to treat his ischemic heart disease more aggressively medically given contraindication for beta-cheo currently. At the completion of our discussion, nursing staff contacted me to let me know that he change his mind. Had another discussion with him and he wishes to have pacemaker removed and not undergo permanent pacemaker placement. We discussed the fact that this would likely lead to further decompensation based on the last 24 hour events. He expressed understanding, including the fact that he may not survive, but wishes to be kept comfortable and pursue a palliative approach. Critical care team was notified. Plan was to leave temporary pacemaker in place so that appropriate measures could be taken to keep him comfortable. 2. Acute systolic CHF: Had decompensation while in complete heart block on 09/07/2020. Seems to be doing a bit better with pacemaker in place although not currently pacing, and also on INR trophic support. Would maintain net negative fluid balance to help with comfort goals. 3. NSTEMI: He did not present with acute coronary syndrome and had denied angin a on presentation and initial consultation. He has had back and chest discomfort which may be his anginal equivalent, intermittently throughout this hospital stay. Troponin elevation indicates myocardial infarction, likely due to multivessel CAD given his history. Currently chest pain-free. Comfort measures as above. 4. Cardiomyopathy: LV systolic function has declined compared to 2020. Comfort measures as above. 5. CAD s/p CABG and PCI: Has had intermittent symptoms concerning for angina. He now chooses comfort approach. 6. Mechanical aortic valve: Was on Coumadin as an outpatient. 7. Mitral regurgitation: Non severe. 8. Hypertension: Is requiring inotropic support for hypotension overnight. This will likely be discontinued when ready for initiation of comfort measures as he wishes to no longer pursue these aggressive measures. 9. Dyslipidemia: Has not tolerated statin therapy. Has tolerated Zetia. 10. Disposition: Critically ill patient. Poor prognosis. He prefers comfort measures at this point after multiple discussions with him today at the bedside. Offered to call family and he once again adamantly refused to allow us to contact family members. Since then, have been contacted by primary service as he has granted them permission to contact family. Patient care discussed with critical care team and primary service. Please call with any other questions or concerns. Admission and Anticipated Discharge Date Admission Date: September 06, 2020 Subjective Patient was seen this morning in the ICU. Overnight, he had return of complete heart block per report he was taken to the cardiac catheterization lab for temporary transvenous pacemaker placement by the interventional on-call bed manager. He was placed in the right neck. He apparently also had some angina. He was placed on dobutamine as he was also hypotensive with a low blood pressure reported as 78/57. When he was seen today, he states that his breathing has improved. He did not have any further chest or back pain. He denies syncope. Review of systems: As above. Physical Exam Physical Exam: Gen.: No acute distress. Alert and appeared oriented x 3. HEENT: Anicteric sclera. Neck: Transvenous pacemaker in place right neck. Cardiac: PMI was nonpalpable. No ventricular heave. Regular. Normal S1. Nicholas S2. S3. 1/6 systolic ejection murmur. Pulmonary: Bilateral rales, most noted at the bases. Abdomen: Soft, nontender, nondistended, with normoactive bowel sounds. No bruits noted. Extremities: 2+ radial pulses bilaterally. 2+ posterior tibialis pulses bi laterally. Trace bilateral lower extremity edema. No cyanosis. Results & Data ([facility]) Vital Signs (Past 12 Hours) Vital Signs Temp Pulse Pulse Resp BP Pulse Ox 09/08/20 07:33 81 81 15 96 09/08/20 07:22 36.3 C L 09/08/20 07:02 79 16 107/72 98 09/08/20 06:32 82 16 146/81 H 100 09/08/20 06:02 80 18 108/69 97 09/08/20 05:31 80 23 93 09/08/20 04:31 80 14 109/66 95 09/08/20 04:01 50 L 18 99/52 L 92 09/08/20 03:45 68 31 H 98 09/08/20 03:34 65 27 H 91/59 L 84 L 09/08/20 03:27 78 23 83/50 L 85 L 09/08/20 03:15 36.6 C 09/08/20 02:32 99 H 19 115/74 92 09/08/20 02:26 100 H 31 H 78/57 L 92 09/08/20 01:56 96 H 27 H 115/62 95 09/08/20 01:00 92 H 23 97 09/08/20 00:56 92 H 21 99 09/08/20 00:26 95 H 23 119/68 95 09/07/20 23:41 93 H 23 136/70 97 09/07/20 23:11 93 H 22 142/74 H 96 09/07/20 23:05 36.8 C 09/07/20 22:41 92 H 24 130/68 100 Intake & Output 09/06/20 09/07/20 09/08/20 09/09/20 06:59 06:59 06:59 06:59 Intake Total 100 / 100 1225 / 1225 626.088 / 626.088 27. / 27.225 Output Total 2175 / 2175 1885 / 1885 Balance 100 / 100 -950 / -950 -1258.912 / -1258.912 27.225 / 27.225 Weight 198 lb 3.129 oz 198 lb 10.184 oz Laboratory Results Laboratory Results - last 24 hr 09/07/20 09/07/20 09/07/20 11:37 14:45 16:50 WBC RBC Hgb Hct MCV MCH MCHC RDW Std Deviation RDW Coeff of Jaclyn Plt Count MPV Immature Gran % (Auto) Neut % (Auto) Lymph % (Auto) [place] % (Auto) Eos % (Auto) Baso % (Auto) Neut # (Auto) Lymph # (Auto) [place] # (Auto) Eos # (Auto) Baso # (Auto) Immature Gran # (Auto) Polychromasia PT INR Sodium Potassium Chloride Carbon Dioxide Anion Gap BUN Creatinine Est Cr Clr Drug Dosing Est GFR ( Amer) Est GFR (Non-Af Amer) BUN/Creatinine Ratio Glucose POC Glucose 275 H 286 H 225 H Lactate Calcium Phosphorus Magnesium Total Bilirubin AST ALT Alkaline Phosphatase Troponin I Total Protein Albumin Globulin Albumin/Globulin Ratio Procalcitonin Anaplasma Smear 09/07/20 09/07/20 09/07/20 17:40 17:40 17:40 WBC RBC Hgb Hct MCV MCH MCHC RDW Std Deviation RDW Coeff of Jaclyn Plt Count MPV Immature Gran % (Auto) Neut % (Auto) Lymph % (Auto) [place] % (Auto) Eos % (Auto) Baso % (Auto) Neut # (Auto) Lymph # (Auto) [place] # (Auto) Eos # (Auto) Baso # (Auto) Immature Gran # (Auto) Polychromasia PT INR Sodium Potassium Chloride Carbon Dioxide Anion Gap BUN Creatinine Est Cr Clr Drug Dosing Est GFR ( Amer) Est GFR (Non-Af Amer) BUN/Creatinine Ratio Glucose POC Glucose Lactate 4.9 H* Calcium Phosphorus Magnesium Total Bilirubin AST ALT Alkaline Phosphatase Troponin I Total Protein Albumin Globulin Albumin/Globulin Ratio Procalcitonin 0.30 Anaplasma Smear See Comment 09/07/20 09/07/20 09/07/20 17:40 19:24 19:49 WBC RBC Hgb Hct MCV MCH MCHC RDW Std Deviation RDW Coeff of Jaclyn Plt Count MPV Immature Gran % (Auto) Neut % (Auto) Lymph % (Auto) [place] % (Auto) Eos % (Auto) Baso % (Auto) Neut # (Auto) Lymph # (Auto) [place] # (Auto) Eos # (Auto) Baso # (Auto) Immature Gran # (Auto) Polychromasia PT INR Sodium 133 L Potassium 3.9 Chloride 100 Carbon Dioxide 23 Anion Gap 10.0 BUN 24 H D Creatinine 1.67 H D Est Cr Clr Drug Dosing 35.9 Est GFR ( Amer) 42.9 Est GFR (Non-Af Amer) 37.0 BUN/Creatinine Ratio 14.1 Glucose 224 H POC Glucose 157 H Lactate 3.5 H* Calcium 8.9 Phosphorus Magnesium Total Bilirubin 0.5 AST 166 H ALT 124 H Alkaline Phosphatase 78 Troponin I 4.580 H* Total Protein 7.7 Albumin 3.1 L Globulin 4.6 H Albumin/Globulin Ratio 0.7 L Procalcitonin Anaplasma Smear 09/08/20 09/08/20 09/08/20 00:16 00:43 03:38 WBC RBC Hgb Hct MCV MCH MCHC RDW Std Deviation RDW Coeff of Jaclyn Plt Count MPV Immature Gran % (Auto) Neut % (Auto) Lymph % (Auto) [place] % (Auto) Eos % (Auto) Baso % (Auto) Neut # (Auto) Lymph # (Auto) [place] # (Auto) Eos # (Auto) Baso # (Auto) Immature Gran # (Auto) Polychromasia PT INR Sodium Potassium Chloride Carbon Dioxide Anion Gap BUN Creatinine Est Cr Clr Drug Dosing Est GFR ( Amer) Est GFR (Non-Af Amer) BUN/Creatinine Ratio Glucose POC Glucose 123 H 179 H Lactate Calcium Phosphorus Magnesium Total Bilirubin AST ALT Alkaline Phosphatase Troponin I 7.270 H* Total Protein Albumin Globulin Albumin/Globulin Ratio Procalcitonin Anaplasma Smear 09/08/20 09/08/20 09/08/20 03:45 03:45 03:45 WBC 24.22 H RBC 4.05 L Hgb 11.5 L Hct 35.0 L MCV 86.4 MCH 28.4 MCHC 32.9 RDW Std Deviation 54.0 H RDW Coeff of Jaclyn 17.3 H Plt Count 237 MPV 10.2 Immature Gran % (Auto) 0.3 Neut % (Auto) 89.0 Lymph % (Auto) 5.4 [place] % (Auto) 5.3 Eos % (Auto) 0.0 Baso % (Auto) 0.0 Neut # (Auto) 21.56 H Lymph # (Auto) 1.30 [place] # (Auto) 1.28 H Eos # (Auto) 0.00 Baso # (Auto) 0.00 Immature Gran # (Auto) 0.08 H Polychromasia 1+ PT 38.7 H INR 4.3 H Sodium 133 L Potassium 5.2 H D Chloride 102 Carbon Dioxide 18 L Anion Gap 13.0 H BUN 32 H Creatinine 1.73 H Est Cr Clr Drug Dosing 34.7 Est GFR ( Amer) 41.1 Est GFR (Non-Af Amer) 35.5 BUN/Creatinine Ratio 18.3 Glucose 173 H POC Glucose Lactate Calcium 8.9 Phosphorus 5.6 H Magnesium 2.7 H Total Bilirubin 0.8 AST 148 H ALT 110 H Alkaline Phosphatase 73 Troponin I Total Protein 7.2 Albumin 3.1 L Globulin 4.1 H Albumin/Globulin Ratio 0.8 L Procalcitonin Anaplasma Smear 09/08/20 09/08/20 09/08/20 03:46 08:16 09:36 WBC RBC Hgb Hct MCV MCH MCHC RDW Std Deviation RDW Coeff of Jaclyn Plt Count MPV Immature Gran % (Auto) Neut % (Auto) Lymph % (Auto) [place] % (Auto) Eos % (Auto) Baso % (Auto) Neut # (Auto) Lymph # (Auto) [place] # (Auto) Eos # (Auto) Baso # (Auto) Immature Gran # (Auto) Polychromasia PT INR Sodium Potassium Chloride Carbon Dioxide Anion Gap BUN Creatinine Est Cr Clr Drug Dosing Est GFR ( Amer) Est GFR (Non-Af Amer) BUN/Creatinine Ratio Glucose POC Glucose 124 H Lactate 5.5 H* 2.1 H* Calcium Phosphorus Magnesium Total Bilirubin AST ALT Alkaline Phosphatase Troponin I Total Protein Albumin Globulin Albumin/Globulin Ratio Procalcitonin Anaplasma Smear 09/08/20 09:36 WBC RBC Hgb Hct MCV MCH MCHC RDW Std Deviation RDW Coeff of Jaclyn Plt Count MPV Immature Gran % (Auto) Neut % (Auto) Lymph % (Auto) [place] % (Auto) Eos % (Auto) Baso % (Auto) Neut # (Auto) Lymph # (Auto) [place] # (Auto) Eos # (Auto) Baso # (Auto) Immature Gran # (Auto) Polychromasia PT INR Sodium Potassium Chloride Carbon Dioxide Anion Gap BUN Creatinine Est Cr Clr Drug Dosing Est GFR ( Amer) Est GFR (Non-Af Amer) BUN/Creatinine Ratio Glucose POC Glucose Lactate Calcium Phosphorus Magnesium Total Bilirubin AST ALT Alkaline Phosphatase Troponin I 6.490 H* Total Protein Albumin Globulin Albumin/Globulin Ratio Procalcitonin Anaplasma Smear Diagnostic Findings Telemetry personally reviewed: Appear to be in sinus rhythm at time of evaluation. Overnight there did appear to be transient high-grade AV block. No ventricular arrhythmia noted. Medications Administered Current Inpatient Medications Acetaminophen (Acetaminophen 325 Mg Tab) 650 mg PO Q4H PRN PRN Reason: Pain or Fever Stop: 10/06/20 06:46 Albuterol (Albut/Ipratrop 3mg/0.5mg Neb 3 Ml Vial) 3 ml NEB Q4R PRN PRN Reason: Shortness Of Breath Or Wheezing Stop: 10/08/20 10:11 Aspirin (Aspirin 81 Mg Ectab) 81 mg PO QAM [facility] Stop: 10/06/20 08:59 Last Admin: 09/08/20 08:39 Dose: 81 mg Documented by: Dextrose (Dextrose 50% 50 Ml Syringe) 25 - 50 ml IV UD PRN; Protocol PRN Reason: Hypoglycemia Protocol Stop: 10/06/20 06:46 Ezetimibe (Ezetimibe 10 Mg Tablet) 10 mg PO QAM [facility] Stop: 10/06/20 08:59 Last Admin: 09/08/20 08:39 Dose: 10 mg Documented by: Glucagon (Glucagon For Inj 1 Mg Vial) 1 mg SQ UD PRN; Protocol PRN Reason: Hypoglycemia Protocol Stop: 10/06/20 06:46 Glucose (Glucose 10 Tabs/Tube) 4 - 8 tabs PO UD PRN; Protocol PRN Reason: Hypoglycemia Protocol Stop: 10/06/20 06:46 Glucose (Glucose 40% Gel 15 Gm Tube) 15 - 30 gm PO UD PRN; Protocol PRN Reason: Hypoglycemia Protocol Stop: 10/06/20 06:46 Guaifenesin (Guaifenesin 600 Mg Tabcr) 600 mg PO Q12 [facility] Stop: 10/06/20 08:59 Last Admin: 09/08/20 08:39 Dose: 600 mg Documented by: Ceftriaxone Sodium 2,000 mg/ (Dextrose) 70 mls @ 100 mls/hr IV DAILY [facility]; Protocol Stop: 09/13/20 08:59 Last Admin: 09/08/20 08:41 Dose: 100 mls/hr Documented by: Methylprednisolone 40 mg/ (Syringe) 0.64 mls @ 1.5 mls/min IV DAILY [facility] Stop: 10/08/20 08:59 Last Admin: 09/08/20 08:38 Dose: 1.5 mls/min Documented by: Dopamine HCl/Dextrose (Dopamine / D5w) 400 mg in 250 mls @ 0 mls/hr IV .Q0M [facility]; Protocol Stop: 10/08/20 03:59 Last Titration: 09/08/20 07:34 Dose: Infused Documented by: Dobutamine HCl 500 mg/ (Dextrose) 250 mls @ 6.758 mls/hr IV .Q24H [facility]; Protocol Stop: 10/08/20 05:44 Last Titration: 09/08/20 07:31 Dose: 5 mcg/kg/min, 13.5 mls/hr Documented by: Doxycycline Hyclate 100 mg/ (Dextrose) 110 mls @ 50 mls/hr IV Q12H [facility] Stop: 09/15/20 08:59 Insulin Aspart (Insulin Aspart 100 Units/Ml 3 Ml Pen) 0 units SC Q4 [facility]; Protocol Stop: 10/07/20 19:59 Last Admin: 09/08/20 08:35 Dose: Not Given Documented by: Insulin Glargine (Insulin Glargine Solostar 100 Units/Ml 3 Ml Pen) 10 units SC QAM [facility] Stop: 10/08/20 08:59 Last Admin: 09/08/20 08:49 Dose: 10 units Documented by: Miscellaneous ([Carboxymethylcellulose 1% Opt] Order Awaiting Action) 1 ea N/A QS [facility] Stop: 10/06/20 07:59 Last Admin: 09/08/20 08:36 Dose: Not Given Documented by: Miscellaneous (Carbohydrates For Hypoglycemia ) 15 - 30 gm PO UD PRN PRN Reason: Hypoglycemia Protocol Stop: 10/06/20 06:46 Miscellaneous Information (Pharmacy Glycemic Mgmt Consult) 1 ea N/A UD PRN PRN Reason: Consult Stop: 10/07/20 14:57 Morphine Sulfate (Morphine Sulfate 2 Mg/Ml Carp) 2 mg IV Q2H PRN PRN Reason: Chest Pain Stop: 09/21/20 08:21 Ondansetron HCl (Ondansetron Inj 2 Mg/Ml 2 Ml Vial) 4 mg IV Q6H PRN PRN Reason: Nausea Stop: 10/06/20 06:46 Pantoprazole Sodium (Pantoprazole 40 Mg Tab) 40 mg PO DAILY [facility] Stop: 10/06/20 08:59 Last Admin: 09/08/20 08:40 Dose: 40 mg Documented by: Warfarin Sodium (Warfarin Sod 5 Mg Tab) 5 mg PO PM [facility] Stop: 10/06/20 20:59 Last Admin: 09/06/20 22:09 Dose: 5 mg Documented by: PG Care Time/CCT Total # of Minutes Spent Total Time Spent with Patient: Total time spent is greater than 50% in coordination of care (as documented) at patient's floor/unit and/or counseling patient: Coding Level of Care Code 80360 Subseq Hosp Care Lvl 3 Diagnoses Complete heart block I44.2 Acute systolic (congestive) heart failure I50.21 Non-ST elevation (NSTEMI) myocardial infarction I21.4 CAD (coronary artery disease) I25.10 History of coronary artery bypass graft x 3 Z95.1 H/O mechanical aortic valve replacement Z95.2 S/P coronary artery stent placement Z95.5 Pulmonary fibrosis J84.10 Multifocal pneumonia J18.9 Anticoagulant long-term use Z79.01 HTN (hypertension) I10 HLD (hyperlipidemia) E78.5 Mitral regurgitation I34.0 Cardiomyopathy I42.9
--- NOTE | 2020-09-08 12:00 | Pharmacy Report ---
Pharmacy Glycemic Short Note 2 - Date of Service September 08, 2020 - Glycemic Short BSG Results (Last 24 hours): 09/07/20 09/07/20 09/07/20 14:45 16:50 17:40 Glucose 224 H POC Glucose 286 H 225 H 09/07/20 09/08/20 09/08/20 19:49 00:16 03:38 Glucose POC Glucose 157 H 123 H 179 H 09/08/20 09/08/20 09/08/20 03:45 08:16 11:38 Glucose 173 H POC Glucose 124 H 118 H OUTPATIENT ANTIDIABETIC REGIMEN: * N/A * A1C 6.2 % ASSESSMENT: 09/08 * BSGs did trend down overnight, steroids were switched from solumedrol 80 mg IV TID to 40 mg daily * ICU protocol was changed to correction factor/carb ratio with steroid change and trend down in BSGs * Patient now has SAVI but still with good urine output * Will give 10 units of lantus this morning, loosen correction factor/novolog parameters 09/07 * Admitted to ICU following cath, patient currently on dopamine infusion, lasix drip * BSG elevated in high 200s, received 125 mg x1 dose of solu-medrol dose this morning and is now on scheduled 80 mg TID * Will begin with ICU hyperglycemia protocol, with weight toward novolog. If BSGs unable to be controlled will start insulin infusion. PLAN FOR INPATIENT GLYCEMIC CONTROL: * Hold outpatient oral diabetes medications * Basal insulin * Lantus 23 units SQ x1 * Bolus insulin * NovoLog per scale ACHS or Q6hrs while NPO * Goal Range: 120-160 mg/dL * Correction Factor: 25 mg/dl/unit * Nutritional / Prandial insulin per carb ratio of 1 unit per 11 grams CHO consumed
--- NOTE | 2020-09-08 12:02 | Hospitalist Progress Note ---
Date of Service September 08, 2020 Assessment & Plan (1) Heart block AV complete: Plan: Mr. Echavarria is an 85 y/o WM initially hospitalized for what was thought to he Multifocal PNA with an elevated troponin (? type II event). Initial troponin peaked at 0.24. He was on abx therapy empirically for CAP (rocephin/azithromycin) along with mucolytic agents, antitussives, neb tr eatments and IV steroids as patient as had a h/o pulmonary fibrosis and was thought to have a mild exacerbations. Initial BNP was not significantly elevated (1728) On hospital day #2, patient had a return of his mid back pain (that was described as crushing) with radiation into his bilateral chest wall. He was HD stable (HR 110 and SBP 156). A repeat Troponin was obtained showing evolution of his acute cardiac event (which was thought to be the cause of his back pain). He was given 2 SL NTG without improvement and subsequently given Morphine which alleviated his pain. He was slightly hypoxic (88% on RA) for which O2 was added. He had some find crackles and wheezes on exam. He was given 40mg IV lasix x 1 [place] [address]. He has an echocardiogram showing a decreased EF of 30% (which 1 year ago it was 55%) along with severe hypokinesia of the inferior wall of the heart. It was thought that this ongoing back pain that he had been experiencing over the course of the past month was likely not related to PNA at all but perhaps angina. Although patient found to have vague opacities on CT, may have been related to fibrotic changes. At any rate- empiric abx therapy continued. His WBC went up (to 16K) which was thought to be steroid induced and reactive from his evolving ACS. EKG done with his CP showed no acute changes compared to prior. With his poor EF, ACS (and knowing that he was HD stable)-- patient was started on coreg for afterload reduction a nd cardiac protection. Shortly after Coreg given, patient became bradycardic (35's) and was found to have complete heart block. 5mg Glucagon given with little improvement. Cardiology and Looping Inspector notified and plan was for patient to be taken to the labor representative for ? cath but more importantly temporary transvenous pacemaker. Unfortionately, his pulmonary status declined (likely given his acute evolving myocardial infarct) and his CHF became acutely uncompensated. It was felt that the risk of cardiac cath. did not outweigh the benefit. Instead, patient was placed on a dopamine and Lasix GTT and managed in the ICU. In the commercial floor covering installer hours today, patient subsequently went back into complete heart block now with cardiogenic shock (he was bradycardic and hypotensive). Was given 2 back to back doses of atropine without improvement. Started back on a dopamine gtt. Taken emergently for a temporary transvenous pacemaker and now on dobutamine for cardiogenic shock. Cardiology did discuss in great detail with patient (as did I) that an option is continuation of temporary pacing for now with dobutamine and mgmt of his CHF with added lasix. We are unsure at this time if is renal and hepatic function will continue to decline (which was likely from inadequate perfusion from poor cardiac output given the complete heart block with bradycardia and ACS). With current HD stability, organ function may improve. Pt would then require a PPM (which cardiology would consider if respiratory status remained stable along with renal and hepatic function). His A/CKD is likely related to poor cardiac output as well. Unfortunately, a PPM would not change the issue with his underlying heart disease. He is s/p multivessel bypass and PCI x5. Can not do a cath with renal dysfunction as contrast needed would only worse his renal dysfunction. If renal function would improve and patient would be candidate for a cardiac cath-- he has known heart disease. ? anything amendable to intervention. Lengthy D/W patient regarding continue current intervention to determine what his renal/hepatic and respiratory function will do and if improves/remains stable--> proceeding with PPM +/- cardiac cath. Even if were could proceed with intervention, uncertain if it would change the outcome. I suspect that he has been having angina or even small infarcts over the past month. Patient well aware and has decided on TRAFFIC OBSERVER. He wants temporary pacer removed, all hemodynamic support stopped and wishes to " comfortably". He is aware that a PPM may help improve his situation; however, it may not and he is requesting TRAFFIC OBSERVER at this time. Lengthy D/W patient. Nurse at bedside. Consult Palliative care to help expedite this process. patient is mentating appropriately. He is aware of his critical status and dire situation. He is oriented x4. He is aware that with stopping current intervention, with ultimately follow. He requests that his 2 sons be notified after he passes and adamantly refuses that I call them now. Stop all interventions (as requested by this patient) and initiate palliative c are. Rx for Morphine sulfate, Atropine ophth ena (to be used orally for secretions) and IV ativan. supplemental O2 only for comfort appreciate any recommendations from cardiology/palliative care case discussed in great detail with Dr. Cuello (cardiology) and Dr. Eisenberg (palliative care) (2) Cardiogenic shock: Plan: - see above (3) Non-ST elevation (NSTEMI) myocardial infarction: Plan: - see above (4) Acute systolic (congestive) heart failure: Plan: - see above (5) Multisystem organ failure: Plan: - see above (6) Leukocytosis: Plan: - likely steroid induced and reactive from above events. see above (7) Multifocal pneumonia: Plan: - may or may not have a component of PNA; however, I am not convinced. - Ongoing back pain and cough likely due to angina/multiple infarcts and mild pulmonary vascular congestion - At any rate, was treated with empiric antibiotic therapy. Uptrending white count likely steroid-induced/reactive - Opacities noted on CT likely fibrotic changes. (8) Pulmonary fibrosis: Plan: - noted on CT chest - per patient, no known exposure to asbestos or beryllium - HIM record request from [facility] (9) Elevated troponin: Plan: -see above (10) CAD (coronary artery disease): Plan: - history of CABD x 3 and PCI x 5 - see above (11) HLD (hyperlipidemia): Plan: - TRAFFIC OBSERVER- see above (12) HTN (hypertension): Plan: - TRAFFIC OBSERVER- see above (13) H/O mechanical aortic valve replacement: Plan: - TRAFFIC OBSERVER- see above (14) S/P coronary artery stent placement: Plan: - see above (15) History of coronary artery bypass graft x 3: Plan: - see above Admission and Anticipated Discharge Date Admission Date: September 06, 2020 Subjective Patient seen on daily rounds today. Yesterday-- did not undergo cardiac cath as he developed acute exacerbation of his CHF (likely related to acute cardiac infarction and 3rd degree heart block). It was thought that the benefit did not outweigh the risk. He was treated initially with a Lasix Gtt and Dopamine and transitioned to the ICU In the maggie morning hours, patient went back into complete heart block. Treated with Atropine 0.5mg x2 without improvement. Taken emergently for temporary transvenous pacemaker. troponin continued to rise (initially 0.076--> 0.4-->2.9-->2.4 on 09/06-09/07. With the course of events yesterday, trop went back up 3.4--> 4.5--> 7.2 and most recently 6.4) He was back on a dopamine gtt and has since been converted to dobutamine gtt for increased cardiac output as he is now developing multisystem organ dysfunction likely related to cardiogenic shock/hypoperfusion. Cr: uptrending (0.96--> 1.67 --> 1.73) AST/ALT: uptrending (6134 --> 166/124 --> 148/110) TB: WNL WBC count uptrendin.14 upon admission --> 16.81 (? steroid induced or reactive from evolving cardiac infarction with complete heart block) --> 24.22 Unfortionately, treatment options has become limited as he is requiring transvenous pacing along with continuous hemodynamic support. Given cardiogenic shock now with cardiorenal syndrome/uptrending LFT's consistent with multisystem organ dysfunction and acute/chronic CHF in conjunction with his chronic coumadin therapy for his metallic heart valve-- he hasn't been a good candidate for cardiac cath + PPM. Lengthy D/W patient by multiple providers regarding poor prognosis and he has subsequently requesting TRAFFIC OBSERVER-- wishes to have removal of temporary pacemaker along with pressor support be stopped knowing that the ultimate prognosis is grave. Spoke to Cardiology who discussed possibility of attempting PPM if Renal/Liver function and pulmonary status doesn't deteriorate further; however- patient made aware that end prognosis may still be grave. Per cardiology- pt requesting removal of temporary pacemaker and ALL LINES and requests TRAFFIC OBSERVER known this will ultimately result in . This was witnessed by his nurse. I subsequently had reassessed this patient to verify his above wishes and he is aware that removal of all Pressor Support (dobutamine/temporary pacemaker) will ultimately result in and he wishes to pursue CMP/palliative care. Review of Systems Review of Systems: All systems reviewed and are unremarkable except as noted in HPI and below When seen by myself, patient was c/o dry mouth but otherwise had no c/c. Denies F/C, CP, back pain, SOB, abd pain, N/V, D/C. Physical Exam Physical Exam: When seen by myself, resting comfortably in his hospital bed and appears very comfortable General: oriented to place/time and situation. Appears comfortable. Neck: difficult to assess for JVD given line right side of neck Cardiac:[currently RRR with artificial heart sound (mechanical) and 2/6 JENNI Lungs: Breathing comfortably in supplemental O2 with bibasilar crackles Abdomen: Normoactive X4. Soft and nontender in all quadrants. Extremities: No peripheral clubbing cyanosis or edema Neuro: A&O X4 Skin: No obvious skin lesions or rashes Results & Data Results & Data ([facility]) Vital Signs (Past 12 Hours) Vital Signs Temp Pulse Pulse Resp BP Pulse Ox 09/08/20 10:58 80 18 96 09/08/20 07:33 81 81 15 96 09/08/20 07:22 36.3 C L 09/08/20 07:02 79 16 107/72 98 09/08/20 06:32 82 16 146/81 H 100 09/08/20 06:02 80 18 108/69 97 09/08/20 05:31 80 23 93 09/08/20 04:31 80 14 109/66 95 09/08/20 04:01 50 L 18 99/52 L 92 09/08/20 03:45 68 31 H 98 09/08/20 03:34 65 27 H 91/59 L 84 L 09/08/20 03:27 78 23 83/50 L 85 L 09/08/20 03:15 36.6 C 09/08/20 02:32 99 H 19 115/74 92 09/08/20 02:26 100 H 31 H 78/57 L 92 09/08/20 01:56 96 H 27 H 115/62 95 09/08/20 01:00 92 H 23 97 09/08/20 00:56 92 H 21 99 09/08/20 00:26 95 H 23 119/68 95 Laboratory Results 09/08/20 03:45 09/08/20 12:03 Cr: uptrending (0.96--> 1.67 --> 1.73) AST/ALT: uptrending (6134 --> 166/124 --> 148/110) TB: WNL WBC count uptrendin.14 upon admission --> 16.81 (? steroid induced or reactive from evolving cardiac infarction with complete heart block) --> 24.22 troponin (initially 0.076--> 0.4-->2.9-->2.4 on 09/06-09/07. With the course of events yesterday, trop went back up 3.4--> 4.5--> 7.2 and most recently 6.4) Diagnostic Findings cardiac catheterization technologist: artificially paced PG Care Time/CCT Total # of Minutes Spent Total Time Spent with Patient: Total time spent is greater than 50% in coordination of care (as documented) at patient's floor/unit and/or counseling patient: 120 min including time spent with patient, D/W cardiology and palliative care. [place] [address] Subseq Hosp Care Lvl 3 Patient Type Established History Comprehensive Exam Comprehensive Medical Decision Making High Complexity Diagnoses Multifocal pneumonia J18.9 Pulmonary fibrosis J84.10 Elevated troponin R77.8 CAD (coronary artery disease) I25.10 HLD (hyperlipidemia) E78.5 HTN (hypertension) I10 H/O mechanical aortic valve replacement Z95.2 Heart block AV complete I44.2 Acute systolic (congestive) heart failure I50.21 Non-ST elevation (NSTEMI) myocardial infarction I21.4 Cardiogenic shock R57.0 Multisystem organ failure Leukocytosis D72.829 S/P coronary artery stent placement Z95.5 History of coronary artery bypass graft x 3 Z95.1 Time Spent (min) 120
[2020-09-08 12:49] LABS: BUN Creatinine Ratio 25.5 (10-20); Calcium 9.1 mg/dl (8.5-10.1); Creatinine Clr Calc Pharmacy 37.2 ml/min; Est GFR (African American) 44.8 ml/min; Est GFR (Non-African American) 38.7 ml/min; Magnesium 2.5 mg/dl (1.8-2.4); Potassium 4.5 mmol/L (3.5-5.1)
[2020-09-08 12:56] LABS: Albumin Globulin Ratio 0.7 (0.9-2); Bilirubin,Total 0.6 mg/dl (0.2-1); Globulin 4.1 gm/dl (2.5-4.0); Phosphorus 4.5 mg/dl (2.5-4.9); Total Protein 7.1 gm/dl (6.4-8.2)
--- NOTE | 2020-09-08 13:41 | Billing Data ---
Date of Service September 08, 2020 Coding Level of Care Code Critical Care 1st 30-74 mins Time Spent (min) 38
--- NOTE | 2020-09-08 13:46 | Communication Note ---
Date of Service: September 08, 2020 Critical CARE addendum: Case was discussed with Dr. Esqueda. Patient was given option to have permanent pacemaker placed in versus withdrawal of care. He relayed the information that he would like to have all care withdrawn. I went to bedside along with Dr. Fernando to make sure he understands that if you take the pacemaker off and stop everything the likelihood of him not making through is high. Patient understands that and would like to proceed with removal of the pacemaker. I asked whether he would like to have a family member around him or nearby prior to doing this he responded by saying that he would like them to know only after the event. All questions inquiries of the patient were answered in depth. Palliative care have also been consulted. Once the patient is ready we will take the pacemaker off, I will start the patient on fentanyl drip to be titrated as needed basis I have personally spent additional 30 minutes of critical care time in the direct management of this patient. This is a life/limb threatening event. This includes time spent evaluating patient, direct bedside care, chart review, placing orders, interpretation of diagnostic studies, discussion with consultants, patient, and family members, as well as other required patient management activities. This time is exclusive of all separately billable procedures, and teaching time and separate from and in addition to any other critical care service time. Please note the above document was generated using voice recognition software. It may contain grammatical, syntax or spelling errors. Coding Level of Care Code Critical Care vera dhaliwalt'l 30 min Time Spent (min) 30
[2020-09-08] MEDS ORDERED: GLYCOPYRROLATE 0.2 MG/ML VIAL IV PRN (15:40)
[2020-09-08] MEDS ORDERED: LORazepam 0.5 MG/1 ML VIAL IV PRN (15:40)
[2020-09-08] MEDS ORDERED: MoRPHine SULFATE 2 MG/ML CARP IV PRN (15:40)
--- NOTE | 2020-09-08 15:54 | Palliative Care Consultation ---
Date of Consultation September 08, 2020 Assessment & Plan (1) Palliative care encounter: He tells me that he has considered this. He understands that his cardiac function is poor and not likely to improve significantly. He also understands that he will if pacemaker support is withdrawn. When I asked him if he had unfinished business or concerns he said "I don't have a care in the world, my nephew will take care of everything." His nephew is present in the room and supports Mr. Echavarria's decision. At this time he is waiting for his sister to arrive. He has requested that after he has an opportunity to talk with his sister, he would like to withdraw pacer support. We discussed what to expect. (2) Dyspnea: We talked about medication to reduce his work of breathing and relieve any air hunger that he is having. He would like that but prefers to wait until his sister arrives so that he is awake and cogent for her visit. Order for morphine adjusted to Q30min prn. He does have progressive renal failure with decreased perfusion. If he were to need frequent dosing or possible infusion, would rotate to hydromorphone to avoid opioid toxicity. He also has orders for lorazepam and glycopyrrolate for secretions. (3) Chest pain: As above. Chest pain type: unspecified Qualified Code(s): R07.9 - Chest pain, unspecified History of Present Illness Reason for Consultation: comfort care Requesting Physician: Dr. Farias Attending Physician: Jerel Hooper DO History of Present Illness 85 yo gentleman with history of CAD who is s/p CABG as well as PCI with stent placement. He also has a mechanical aortic valve. He presented with pain and dyspnea on exertion. His troponin was elevated and he developed complete heart block. He has temporary pacemaker but was unable to have permanent pacer with catheterization due to elevated INR. He has subsequently decided that he does not want to pursue further interventions. He has discussed this with cardiology and with the hospitalist and is comfortable with his decision. We have been consulted to assist with symptom management. Allergies Allergy/AdvReac Type Severity Reaction Status Date / Time aspirin AdvReac Intermediate high doses Unverified 09/06/20 03:17 burn his stomach amlodipine AdvReac Unknown Verified 09/06/20 03:24 atorvastatin AdvReac Unknown Verified 09/06/20 03:24 ciprofloxacin AdvReac Unknown Verified 09/06/20 03:24 doxycycline AdvReac Unknown Verified 09/06/20 03:28 felodipine AdvReac Unknown Verified 09/06/20 03:20 fluvastatin AdvReac Muscle Pain Verified 09/06/20 03:23 gabapentin AdvReac Confusion Verified 09/06/20 03:23 hydralazine AdvReac Unknown Verified 09/06/20 03:20 hydrochlorothiazide AdvReac Unknown Verified 09/06/20 03:23 isosorbide AdvReac Unknown Verified 09/06/20 03:23 labetalol AdvReac Unknown Verified 09/06/20 03:27 levothyroxine AdvReac Unknown Verified 09/06/20 03:24 lisinopril AdvReac Chest Pain Verified 09/06/20 03:26 loratadine AdvReac Unknown Verified 09/06/20 03:26 losartan AdvReac Unknown Verified 09/06/20 03:26 methyldopa AdvReac Headache Verified 09/06/20 03:28 metoprolol AdvReac Unknown Verified 09/06/20 03:20 nifedipine AdvReac Unknown Verified 09/06/20 03:27 nitrofurantoin AdvReac Dizziness Verified 09/06/20 03:28 omeprazole AdvReac Muscle Pain Verified 09/06/20 03:18 simvastatin AdvReac Muscle Pain Verified 09/06/20 03:18 spironolactone AdvReac Nausea Verified 09/06/20 03:18 valsartan AdvReac Unknown Verified 09/06/20 03:18 Home Medications Medication Instructions Recorded Confirmed Type aspirin 81 mg tablet,delayed 81 mg PO QAM 08/28/19 09/06/20 History release ezetimibe 10 mg tablet 10 mg PO QAM 08/28/19 09/06/20 History finasteride 5 mg tablet 5 mg PO PM 08/28/19 09/06/20 History furosemide 20 mg tablet (Lasix) 20 mg PO QAM 08/28/19 09/06/20 History glycerin (adult) 1 supp [place] DAILY 08/28/19 09/06/20 History hydralazine 50 mg tablet 50 mg PO QID 08/28/19 09/06/20 History hydrochlorothiazide 25 mg tablet 25 mg PO QAM 08/28/19 09/06/20 History methocarbamol 500 mg tablet 500 mg PO HS PRN 08/28/19 09/06/20 History nitroglycerin 0.2 mg/hr 1 patch TRANSDERMAL QAM 08/28/19 09/06/20 History transdermal 24 hour patch nitroglycerin 0.4 mg/hr 1 patch TRANSDERMAL QAM 08/28/19 09/06/20 History transdermal 24 hour patch ranolazine 500 mg tablet,extended 1,000 mg PO BID 08/28/19 09/06/20 History release,12 hr tamsulosin 0.4 mg capsule 0.4 mg PO HS 08/28/19 09/06/20 History warfarin 5 mg tablet 5 mg PO PM 08/28/19 09/06/20 History Olodaterol/Tiotrop 2 inh PO DAILY 09/06/20 09/06/20 History carboxymethylcellulose sodium 1 % 1 drp OPHTHALMIC (EYE) QID 09/06/20 09/06/20 History eye drops coenzyme Q10 200 mg capsule 200 mg PO DAILY 09/06/20 09/06/20 History fluticasone propionate 50 2 spray INTRANASAL DAILY 09/06/20 09/06/20 History mcg/actuation nasal spray,suspension lidocaine 5 % topical patch 1 patch TOPICAL DAILY 09/06/20 09/06/20 History nitroglycerin 0.3 mg sublingual 0.3 mg SUBLINGUAL UD PRN 09/06/20 09/06/20 History tablet pantoprazole 20 mg tablet,delayed 20 mg PO DAILY 09/06/20 09/06/20 History release potassium chloride 20 mEq 20 meq PO DAILY 09/06/20 09/06/20 History tablet,extended release tramadol 50 mg tablet 50 mg PO Q6H PRN 09/06/20 09/06/20 History triamcinolone acetonide 0.025 % 1 applic TOPICAL BID 09/06/20 09/06/20 History topical cream Patient History Medical History Anticoagulant long-term use CAD (coronary artery disease) History of tuberculosis HLD (hyperlipidemia) HTN (hypertension) Mitral regurgitation Surgical History H/O mechanical aortic valve replacement History of coronary artery bypass graft x 3 Hx of cholecystectomy Hx of rotator cuff surgery S/P coronary artery stent placement S/P lobectomy of lung Family History Other Heart disease Social History Smoking Status: Former smoker Tobacco Type: Cigarettes Number of Years Since Quit: 40; Second Hand Exposure: No; Hx Alcohol Use: No Hx Substance Use: No Preferred Language: Albanian Communication Ability: Effective Certified Technician Required: No Beliefs That Will Affect Care: None Current Living Situation: Alone Other Information That Helps Us Care for You: No Feels Safe at Home: Yes Safety Concerns: Feels Safe At This Time Assistive Devices: Denture - Upper, Denture - Lower and Oxygen - Continuous Review of Systems Review of Systems: Amigo Symptom Assessment Scale Pain 1/3 Dyspnea 2/3 Fatigue 2/3 Nausea 0/3 Drowsiness 1/3 Palliative Performance Score 20% Physical Exam Constitutional: + ill appearing Respiratory: + labored breathing and + uses accessory muscles Cardiovascular: Rate/Rhythm: regular rhythm and + tachycardic above pacer rate of 80 bpm Gastrointestinal (Abdomen): Inspection/Auscultation: + significant pannus nontender Neurologic: awake; not confused Psychiatric: Orientation: oriented x 3 Insight: good insight judgement intact Results & Data ([facility]) Vital Signs (Past 12 Hours) Vital Signs Temp Pulse Pulse Resp BP Pulse Ox 09/08/20 14:12 99 H 23 124/74 90 09/08/20 13:12 91 H 27 H 146/74 H 93 09/08/20 12:12 98.2 F 96 H 28 H 127/71 90 09/08/20 11:12 90 25 H 149/105 H 90 09/08/20 10:58 80 18 96 09/08/20 10:12 80 15 128/69 95 09/08/20 09:12 83 18 135/71 94 09/08/20 08:02 80 15 139/75 93 09/08/20 07:33 81 81 15 96 09/08/20 07:22 97.3 F L 09/08/20 07:02 79 16 107/72 98 09/08/20 06:32 82 16 146/81 H 100 09/08/20 06:02 80 18 108/69 97 09/08/20 05:31 80 23 93 09/08/20 04:31 80 14 109/66 95 09/08/20 04:01 50 L 18 99/52 L 92 PG Care Time/CCT Total # of Minutes Spent Total Time Spent: 60 Total Time Spent with Patient: Total time spent is greater than 50% in coordination of care (as documented) at patient's floor/unit and/or counseling patient: goals of care, symptom management, prognosis Coding Level of Care Code 02578 Initial Inpt Care Lvl 2 Diagnoses Palliative care encounter Z51.5 Chest pain R07.9 Chest pain type: unspecified Dyspnea R06.00
[2020-09-08] MEDS ORDERED: LORazepam 0.25 MG/0.5 ML VIAL IV PRN (19:44)
[2020-09-08] MEDS ORDERED: ATROPINE SULFATE 1% OP SOLN 5 ML BTL PO PRN (19:44)
--- NOTE | 2020-09-09 06:11 | Electrocardiogram Report ---
Test Reason : Blood Pressure : / mmHG Vent. Rate : 110 BPM Atrial Rate : 110 BPM P-R Int : 000 ms QRS Dur : 182 ms QT Int : 408 ms P-R-T Axes : 000 -71 083 degrees QTc Int : 552 ms Sinus tachycardia Left axis deviation Right bundle branch block Left ventricular hypertrophy with repolarization abnormality Abnormal ECG When compared with ECG of 06-SEP-2020 02:48, No significant change Confirmed by Mynor Cuello ([id number]) on 09/09/2020 6:11:22 AM Referred By: REFERRED SELF Confirmed By:Mynor Cuello
--- NOTE | 2020-09-09 07:34 | Critical Care Progress Note ---
Date of Service September 09, 2020 Assessment & Plan (1) Complete heart block: Plan: Reason Critically Ill: 85 y/o male w/ PMHx of CAD (CABGx3 and stents), pulmonary fibrosis, mechanical aortic valve on Warfarin, admitted for dyspnea on exertion and generalized pain who developed complete heart block after use of carvedilol in the context of acute systolic heart failure likely precipitated by ischemia vs infarct. He was not a candidate for cardiac cath w/ PCI because of poor prognosis. The complete heart block transiently resolved, but later returned, requiring placement of temporary transvenous catheter. Patient transitioned to comfort measures only on 09/08/20 and he did not want evaluation for permanent pacemaker. HR is 90s-110s w/ transvenous pacer turned off since yesterday, removed this morning. No acute distress. COMFORT MEASURES STATUS - palliative medicine on board - PRN morphine sulfate 2mg IV q30min for pain or dyspnea. He required only 1 dose of this overnight. - PRN Tylenol 650 PO for pain or fever. - PRN DuoNeb for dyspnea. - PRN Ativan 0.5 mg q4hPRN for agitation - PRN Ativan 0.25 mg q4hPRN for anxiety. - PRN atropine sulfate and glycopyrrolate for secretions - PRN IV Zofran 4mg for nausea NEURO - CAM ICU: negative CARDIAC - acute vs acute on chronic systolic heart failure - as per above - comfort measures only: no further diuretics complete heart block, currently resolved - temporary transvenous pacer turned off 09/08, removed today cardiogenic shock, resolved - comfort measures only: no vasopressors CAD s/p CABGx3 and stent - comfort measures only mechanical aortic valve (year 2001) - comfort measures only: home warfarin discontinued hypertension - comfort measures only: home regimen discontinued hyperlipidemia - comfort measures only: home Zetia discontinued RESP pulmonary fibrosis history of TB and RUL, RML partial lobectomy - comfort measures only: supplemental O2 as needed for comfort GI - - DM2 and heart healthy diet minced and moist - constipation: ordered 1 dose of Miralax daily RENAL/LYTES - - comfort measures only: no new labwork - - has persaud, consider removal - Is/Os 550mL in 900mL out ENDO - prediabetes - comfort measures only: discontinued SSI and BSG checks HEME - chronic anticoagulation use for mechanical valve - comfort measures only: home warfarin discontinued ID - chronic pulmonary fibrosis - empiric antibiotics and IV methylpred were started at admission for possible multifocal pneumonia - comfort measures only all antibiotics stopped LINES/IV ACCESS - right IJ transvenous pacer turned off, since removed - has PIVs DVT PROPHYLAXIS - - comfort measures only: home warfarin discontinued as per above DISPO downgrade from ICU today to med/surg. dispo planning per hospitalist team (2) Acute on chronic systolic heart failure: (3) Cardiomyopathy: (4) Elevated troponin: (5) Pulmonary fibrosis: (6) Multifocal pneumonia: (7) Anticoagulant long-term use: (8) HLD (hyperlipidemia): (9) HTN (hypertension): (10) History of tuberculosis: (11) History of coronary artery bypass graft x 3: (12) H/O mechanical aortic valve replacement: (13) Need for comfort care: Admission and Anticipated Discharge Date Admission Date: September 06, 2020 Supervising Physician Co-Signing Physician Notes Dr. Fernando was the resident-physician during care of patient. I separately evaluated patient for dorman portions of the history and the exam. I was present during the critical portion of medical decision making, and I discussed the case with the resident. I generally agree with the findings and plan except for any additions/exceptions noted. CT chest 09/06/20 personally reviewed: Biapical scarring, increased reticular thickening peripherally bilateral upper lobe Bilateral groundglass opacities appreciated in the lower lobes as well as the lingula, bronchiectasis bilateral lower lobes No pleural effusion Patient seen and examined at bedside. No acute distress. Does complain of shortness of breath when laying flat. Denies any chest pain. Poor appetite. Constitutional: No acute distress HEENT: EOMI, PERRLA, right IJ temporary pacemaker in place Respiratory system: Decreased air entry bilaterally, no wheeze, no rhonchi, positive crackles bilateral lower lobes CVS: S1-S2 positive, mechanical heart sound appreciated Abdomen: Soft, nontender, nondistended, positive bowel sounds x4 Extremities: +2 pulses bilaterally radialis/ dorsalis pedis, no cyanosis, no edema Neuro: Awake alert oriented x3 Psych: Normal mood and affect G/U: Positive Persaud Plan: In/out: -498, urine output 100 Palliative care saw the patient yesterday, patient decided to go a palliative approach All medications as well as pacing of the RV has been stopped as of last night. Right IJ pacemaker will be removed Patient was made aware that he can ask for what ever he needs. If he is in pain or distress asked for pain medications. Patient will be downgraded out of the ICU. Please note the above document was generated using voice recognition software. It may contain grammatical, syntax or spelling errors.Any formal questions or concerns about the content, text or information contained within the body of this dictation should be directly addressed to the provider for clarification. Subjective No acute events overnight. Patient states he feels fine. He has intermittent hot flashes and chills. No chest pain. SOB only w/ exertion or movement. He has not had a BM in 2 days. No abdominal pain, nausea, or vomiting. He has some paresthesias at his shins and feet. Denies confusion. Review of Systems Review of Systems: As per HPI. Physical Exam Physical Exam: General: A&Ox4, fully oriented to person, place, time, context. No acute distress. HEENT: Atraumatic, normocephalic. Pulm: Crackles at bilateral bases and right mid lung field. No respiratory distress. Cardiac: RRR, -murmur. [place] S2. +S3. No lower extremity edema. Abdominal: Nontender, soft. Abdomen appears slightly distended. Results & Data Results & Data ([facility]) Vital Signs (Past 12 Hours) Vital Signs Temp Pulse Pulse Pulse Resp BP Pulse Ox 09/09/20 01:00 36.7 C 103 H 20 126/86 95 09/08/20 21:41 112 H 09/08/20 20:00 36.7 C 112 H 18 136/84 95 Laboratory Results no new labwork Diagnostic Findings no new imaging Resident Activity Tracking Resident Involvement: Resident Care Provided Care Provided: Adult [facility] Medicine
--- NOTE | 2020-09-09 10:03 | Hospitalist Progress Note ---
Date of Service September 09, 2020 Assessment & Plan (1) Heart block AV complete: Plan: Currently, patient is in a wide complex SVT. Can not use any rate reducing agents given the recent events with complete heart block. I suspect that he will likely go back into some type of block/arrythmia. Once temporary pacer removed, can move from the ICU. At this time, his prognosis is grave. Will monitor over the next 24-48 hours. Patient surprisingly stable at this time. ? "calm before the storm" uncertain is patient will survive discharge. He certainly can not go home as he lives alone. He is unhappy about the idea of a SNF but understands. Case mgmt consulted Mr. Echavarria is an 85 y/o WM initially hospitalized for what was thought to he Multifocal PNA with an elevated troponin (? type II event). Initial troponin peaked at 0.24. He was on abx therapy empirically for CAP (rocephin/azithromycin) along with mucolytic agents, antitussives, neb treatments and IV steroids as patient as had a h/o pulmonary fibrosis and was thought to have a mild exacerbations. Initial BNP was not significantly elevated (1728) On hospital day #2, patient had a return of his mid back pain (that was described as crushing) with radiation into his bilateral chest wall. He was HD s table (HR 110 and SBP 156). A repeat Troponin was obtained showing evolution of his acute cardiac event (which was thought to be the cause of his back pain). He was given 2 SL NTG without improvement and subsequently given Morphine which alleviated his pain. He was slightly hypoxic (88% on RA) for which O2 was added. He had some find crackles and wheezes on exam. He was given 40mg IV lasix x 1 [place] [address]. He has an echocardiogram showing a decreased EF of 30% (which 1 year ago it was 55%) along with severe hypokinesia of the inferior wall of the heart. It was thought that this ongoing back pain that he had been experiencing over the course of the past month was likely not related to PNA at all but perhaps angina. Although patient found to have vague opacities on CT, may have been related to fibrotic changes. At any rate- empiric abx therapy continued. His WBC went up (to 16K) which was thought to be steroid induced and reactive from his evolving ACS. EKG done with his CP showed no acute changes compared to prior. With his poor EF, ACS (and knowing that he was HD stable)-- patient was started on coreg for afterload reduction and cardiac protection. Shortly after Coreg given, patient became bradycardic (35's) and was found to have complete heart block. 5mg Glucagon given with little improvement. Cardiology and Chief Nursing Executive notified and plan was for patient to be taken to the dental lab technician for ? cath but more importantly temporary transvenous pacemaker. Unfortunately, his pulmonary status declined (likely given his acute evolving myocardial infarct) and his CHF became acutely uncompensated. It was felt that the risk of cardiac cath. did not outweigh the benefit. Instead, patient was placed on a dopamine and Lasix GTT and managed in the ICU. In the b2b sales representative hours on 09/08, patient subsequently went back into complete heart block with cardiogenic shock (he was bradycardic and hypotensive). Was given 2 back to back doses of atropine without improvement. Started back on a dopamine gtt. Taken emergently for a temporary transvenous pacemaker subsequently transitioned to dobutamine for cardiogenic shock. Cardiology did discuss in great detail with patient (as did I) that an option is continuation of temporary pacing with dobutamine and mgmt of his CHF with added lasix; however- unsure if his renal and hepatic function would continue to decline (which was likely from inadequate perfusion from poor cardiac output given the complete heart block with bradycardia and ACS). With continued HD stability, organ function may improve. Pt would then require a PPM (which cardiology would consider if respiratory status remained stable along with renal and hepatic function). His A/CKD is likely related to poor cardiac output as we ll. Unfortunately, a PPM would not change the issue with his underlying heart disease. He is s/p multivessel bypass and PCI x5. Can not do a cath with renal dysfunction as contrast needed would only worse his renal dysfunction. If renal function would improve and patient would be candidate for a cardiac cath-- he has known heart disease. ? anything amendable to intervention. Perhaps placement of a PPM would allow for maximized medical mgmt (ie: BB to aid in cardiac output) but again, would not fix his underlying vessel disease. Lengthy D/W patient regarding continued intervention to determine what his renal/hepatic and respiratory function would do and if improved/remained stable--> proceeding with PPM +/- cardiac cath. Even if were could proceed with intervention, uncertain if it would change the outcome. I suspect that he has been having angina or even small infarcts over the past month. Patient well aware of everything listed above and has decided on PRODUCT SAFETY ADMINISTRATOR. All options were discussed with patient and his sons by multiple providers and he has decided that he wants nothing interventional and for PRODUCT SAFETY ADMINISTRATOR. In the overnight hours, temporary pacer was removed and hemodynamic support sto pped and he wishes to " comfortably". Palliative care on board-- recommendations and mgmt of this end of life stage is greatly appreciated (2) Cardiogenic shock: Plan: - see above (3) Non-ST elevation (NSTEMI) myocardial infarction: Plan: - see above (4) Acute systolic (congestive) heart failure: Plan: - see above (5) Multisystem organ failure: Plan: - see above (6) Leukocytosis: Plan: - likely steroid induced and reactive from above events. see above - not added labs as patient is PRODUCT SAFETY ADMINISTRATOR (7) Multifocal pneumonia: Plan: - may or may not have a component of PNA; however, I am not convinced. - Ongoing back pain and cough likely due to angina/multiple infarcts and mild pulmonary vascular congestion - At any rate, was treated with empiric antibiotic therapy. Uptrending white count likely steroid-induced/reactive - Opacities noted on CT likely fibrotic changes. - since patient has decided on PRODUCT SAFETY ADMINISTRATOR, abx stopped as will not improve his cardiac and impending respiratory decline (8) Pulmonary fibrosis: Plan: - noted on CT chest - per patient, no known exposure to asbestos or beryllium (9) Elevated troponin: Plan: -see above (10) CAD (coronary artery disease): Plan: - history of CABD x 3 and PCI x 5 - see above (11) HLD (hyperlipidemia): Plan: - PRODUCT SAFETY ADMINISTRATOR- see above (12) HTN (hypertension): Plan: - PRODUCT SAFETY ADMINISTRATOR- see above (13) H/O mechanical aortic valve replacement: Plan: - PRODUCT SAFETY ADMINISTRATOR- see above (14) S/P coronary artery stent placement: Plan: - see above (15) History of coronary artery bypass graft x 3: Plan: - see above Admission and Anticipated Discharge Date Admission Date: September 06, 2020 Subjective Patient seen on daily rounds today. Right IJ transvenous pacer off (0100 today) but remains in place Dobutamine gtt turned off at 0100 today Sons and Nephew were in yesterday and into the b2b sales representative hours today to visit with the patient and agree with patient's decision for PRODUCT SAFETY ADMINISTRATOR Since discontinuing all care/forms of hemodynamic support- patient has remained relatively stable. HR low 100's. BP stable at 126/86. He is still c/o back pain (which has been intermittent over the past month and thought to be related to his cardiac disease) but reclined needing Morphine at the moment. Did receive Morphine at 0430 for complaints of back pain. Was ordered a dose of Miralax by acquisition associate for some constipation. Patient remains PRODUCT SAFETY ADMINISTRATOR Nursing voices no c/c Review of Systems Review of Systems: All systems reviewed and are unremarkable except as noted in HPI and below Denies fevers, chills, headache, nasal congestion, sore throat, cough, chest pain, shortness of breath, abdominal pain, nausea, vomiting, dysuria, hematuria, frequency, skin lesions or rashes. Physical Exam Physical Exam: General: Resting comfortably in his hospital bed. Actually appears very comfortably and in NAD. Mentation/affect are both normal Neck:difficult to assess for JVD as RIJ temporary pacer indwelling. Cardiac: tacycardia (105 BPM at present) with prominent artificial heart sound/click Lungs: breathing comfortably on supplemental O2. Speaking full sentences without conversational dyspnea. bibasilar crackles. Abdomen: Normoactive X4. Soft and nontender in all quadrants. Extremities: No peripheral clubbing cyanosis or edema Neuro: A&O X4 cranial nerves II through XII are grossly intact no focal neuro deficits Skin: No obvious skin lesions or rashes Results & Data Results & Data ([facility]) Vital Signs (Past 12 Hours) Vital Signs Temp Pulse Resp BP Pulse Ox 09/09/20 01:00 36.7 C 103 H 20 126/86 95 Laboratory Results no lab data as PRODUCT SAFETY ADMINISTRATOR Diagnostic Findings currently his residential monitor reviews a wide complex SVT PG Care Time/CCT Total # of Minutes Spent Total Time Spent with Patient: Total time spent is greater than 50% in coordination of care (as documented) at patient's floor/unit and/or counseling patient: [place] [address] Subseq Hosp Care Lvl 2 Patient Type Established History Detailed Exam Detailed Medical Decision Making Moderate Complexity Diagnoses Heart block AV complete I44.2 Cardiogenic shock R57.0 Non-ST elevation (NSTEMI) myocardial infarction I21.4 Acute systolic (congestive) heart failure I50.21 Multisystem organ failure Leukocytosis D72.829 Multifocal pneumonia J18.9 Pulmonary fibrosis J84.10 Elevated troponin R77.8 CAD (coronary artery disease) I25.10 HLD (hyperlipidemia) E78.5 HTN (hypertension) I10 H/O mechanical aortic valve replacement Z95.2 S/P coronary artery stent placement Z95.5 History of coronary artery bypass graft x 3 Z95.1 Time Spent (min) 60
[2020-09-09] MEDS: POLYETHYLENE (MIRALAX) 17 GM PACK PO SCH (10:11)
[2020-09-09] MEDS ORDERED: POLYETHYLENE (MIRALAX) 17 GM PACK PO ONE (10:48)
[2020-09-09] MEDS ORDERED: bisacodyL 10 MG SUPP PR PRN (11:41)
--- NOTE | 2020-09-09 11:58 | Palliative Care Progress Note ---
Date of Service September 09, 2020 Assessment & Plan (1) Dyspnea: Plan: Sats are within normal limits. We discussed opioid to reduce work of breathing and relieve air hunger. He feels that he is ok for now. He did have one dose of morphine last night for back pain. (2) Constipation: Plan: Denies nausea or abdominal pain. Has had limited po intake. Miralax was ordered but he would prefer suppository. Order placed for dulcolax. (3) Palliative care encounter: Plan: I talked with Mr. Echavarria about plan for his care moving forward. He remains very weak and his condition is tenuous. His preference would be to be at home until his . He lives alone and does not have anyone to help him at home. He would need 24/7 care and does not have resources for paid caregivers. He has two sons who live in the [place] area but would not be able to stay with him. I suggested SNF but he is not particularly receptive to the idea. I also discussed who would make decisions for him if he were unable to do so. He tells me that he makes his own decisions. We discussed that this is absolutely the goal but that it would be good to designate a surrogate if he were unable to do so. He declines to that at this time. I did speak with his sons, Franklin and Braulio, on the phone. They feel that SNF would be the best option for him and will discuss further with case management later today. Discussed with case management. (4) Acute systolic (congestive) heart failure: (5) Complete heart block: (6) Non-ST elevation (NSTEMI) myocardial infarction: Admission and Anticipated Discharge Date Admission Date: September 06, 2020 Subjective Awake and alert. Short of breath with conversation. Appetite poor. No BM x 2 days. Pacemaker off last evening. Review of Systems Review of Systems: [place] Symptom Assessment Scale Pain 1/3 Dyspnea 2/3 Anxiety 1/3 Fatigue 2/3 Nausea 0/3 Drowsiness 0/3 Palliative Performance Score 30% Physical Exam Constitutional: + ill appearing Respiratory: + labored breathing; does not use accessory muscles Cardiovascular: Rate/Rhythm: + tachycardic Gastrointestinal (Abdomen): distended, nontender Skin: warm and dry Neurologic: awake; not confused Results & Data ([facility]) Vital Signs (Past 12 Hours) Vital Signs Temp Pulse Resp BP Pulse Ox 09/09/20 01:00 98.1 F 103 H 20 126/86 95 PG Care Time/CCT Total # of Minutes Spent Total Time Spent: 40 Total Time Spent with Patient: Total time spent is greater than 50% in coordination of care (as documented) at patient's floor/unit and/or counseling patient: symptom management, plan of care, surrogate decision maker Coding Level of Care Code 52465 Subseq Hosp Care Lvl 3 Diagnoses Dyspnea R06.00 Constipation K59.00 Palliative care encounter Z51.5 Acute systolic (congestive) heart failure I50.21 Complete heart block I44.2 Non-ST elevation (NSTEMI) myocardial infarction I21.4
--- NOTE | 2020-09-09 12:22 | Billing Data ---
Date of Service September 09, 2020 Coding Level of Care Code 96485 Subseq Hosp Care Lvl 2
--- NOTE | 2020-09-10 05:43 | Electrocardiogram Report ---
Test Reason : Blood Pressure : / mmHG Vent. Rate : 115 BPM Atrial Rate : 115 BPM P-R Int : 000 ms QRS Dur : 170 ms QT Int : 400 ms P-R-T Axes : 000 -72 080 degrees QTc Int : 553 ms Possible Sinus rhythm with 1st degree A-V block vs accelerated junctional rhythm or SVT Left axis deviation Right bundle branch block Septal infarct , age undetermined Abnormal ECG When compared with ECG of 07-SEP-2020 06:40, No significant change was found Confirmed by Mynor Cuello ([id number]) on 09/10/2020 5:42:59 AM Referred By: REFERRED SELF Confirmed By:Mynor Cuello
--- NOTE | 2020-09-10 05:56 | Electrocardiogram Report ---
Test Reason : Blood Pressure : / mmHG Vent. Rate : 040 BPM Atrial Rate : 038 BPM P-R Int : 000 ms QRS Dur : 182 ms QT Int : 594 ms P-R-T Axes : 000 -30 230 degrees QTc Int : 484 ms Marked sinus bradycardia with A-V dissociation and Idioventricular rhythm Left axis deviation Left bundle branch block Abnormal ECG When compared with ECG of 07-SEP-2020 08:16, Idioventricular rhythm is now Present Complete heart block is now present Vent. rate has decreased BY 75 BPM Confirmed by Mynor Cuello ([id number]) on 09/10/2020 5:56:19 AM Referred By: REFERRED SELF Confirmed By:Mynor Cuello
--- NOTE | 2020-09-10 06:38 | Electrocardiogram Report ---
Test Reason : Blood Pressure : / mmHG Vent. Rate : 055 BPM Atrial Rate : 055 BPM P-R Int : 440 ms QRS Dur : 186 ms QT Int : 496 ms P-R-T Axes : 046 -61 210 degrees QTc Int : 474 ms Sinus bradycardia with 1st degree A-V block Left axis deviation Right bundle branch block Minimal voltage criteria for LVH, may be normal variant Marked T-wave abnormality, consider inferolateral ischemia Abnormal ECG When compared with ECG of 07-SEP-2020 11:11, Idioventricular rhythm is no longer Present 1st degree A-V block has replaced 3rd degree A-V block Confirmed by Mynor Cuello ([id number]) on 09/10/2020 6:38:12 AM Referred By: REFERRED SELF Confirmed By:Mynor Cuello
--- NOTE | 2020-09-10 08:28 | Electrocardiogram Report ---
Test Reason : Blood Pressure : / mmHG Vent. Rate : 080 BPM Atrial Rate : 080 BPM P-R Int : 000 ms QRS Dur : 206 ms QT Int : 476 ms P-R-T Axes : 104 -59 169 degrees QTc Int : 548 ms Ventricular-paced rhythm Abnormal ECG When compared with ECG of 08-SEP-2020 03:39, Electronic ventricular pacemaker has replaced Sinus rhythm Confirmed by Mynor Cuello ([id number]) on 09/10/2020 8:28:20 AM Referred By: REFERRED SELF Confirmed By:Mynor Cuello
[2020-09-10] MEDS: POLYETHYLENE (MIRALAX) 17 GM PACK PO SCH (08:33)
--- NOTE | 2020-09-10 10:00 | Palliative Care Progress Note ---
Date of Service September 10, 2020 Assessment & Plan (1) Dyspnea: Plan: Relieved with O2. We discussed using morphine for air hunger but he does not feel that he needs that at this time. (2) Constipation: Plan: Resolved with miralax. BM x 3 yesterday (3) Palliative care encounter: Plan: Plan for discharge later today to [place] with hospice. We completed POLST form per his wishes for DNR, comfort measures only, determine antibiotics at the time and trial of hydration with no artificial feeding. POLST form on chart for transfer. (4) Leukocytosis: (5) Complete heart block: (6) Cardiomyopathy: (7) Non-ST elevation (NSTEMI) myocardial infarction: Admission and Anticipated Discharge Date Admission Date: September 06, 2020 Subjective Sitting on the edge of the bed getting a bath. Labored breathing. Does get relief with oxygen. Review of Systems Review of Systems: [place] Symptom Assessment Scale Pain 0/3 Dyspnea 2/3 Anxiety 0/3 Nausea0/3 Drowsiness 0/3 Anorexia1/3 Palliative Performance Score 40% Physical Exam Constitutional: + ill appearing; + uncomfortable Respiratory: + labored breathing and + uses accessory muscles Cardiovascular: Extremities: no edema Skin: warm and dry Neurologic: awake; no focal motor deficits and not confused Genitourinary: Henry catheter Results & Data ([facility]) Vital Signs (Past 12 Hours) Vital Signs Temp Pulse Resp BP Pulse Ox 09/10/20 07:58 98.2 F 86 16 158/79 H 92 PG Care Time/CCT Total # of Minutes Spent Total Time Spent with Patient: Total time spent is greater than 50% in coordination of care (as documented) at patient's floor/unit and/or counseling patient: Coding Level of Care Code 49077 Subseq Hosp Care Lvl 2 Diagnoses Dyspnea R06.00 Constipation K59.00 Palliative care encounter Z51.5 Leukocytosis D72.829 Complete heart block I44.2 Cardiomyopathy I42.9 Non-ST elevation (NSTEMI) myocardial infarction I21.4
--- NOTE | 2020-09-10 18:19 | Discharge Summary ---
Date of Service September 10, 2020 Admission HPI Per Admitting Provider Mr. Echavarria is an 85 yo M with a PMHx of CAD s/p CAGB x 3 and PCI x 5 who presented for evaluation of generalized pain and progressive dyspnea on exertion. He reports ongoing generalized pain over the past several weeks; last night, he could not get comfortable enough to sleep, which ultimately prompted him to seek medical attention. He cannot articulate the exact nature of of his pain. He does state that today when walking to his car he experienced a pain in his mid back that wrapped around to his chest. He was short of breath at the same time. He does have underlying lung disease - he has a history of tuberculosis, for which he apparently had two partial lobectomies. He is not on any baseline oxygen. Social Hx: Lives alone, has a sister who lives nearby. Most of his medical care is at the [facility]. Has not had any alcohol in several years. He did smoke for ~ 30 years, but quit back in 1979. To his knowledge, he was not exposure to any industrial toxin, such as asbestos or beryllium. In the ED, he was afebrile with mild tachycardia (HR 109 bpm), normal BP and RR, O2 sat 93 or above on room air. His WBC was mildly elevated to 11, Hgb mildly low at 11.7. MCV at 85. Electrolytes, kidney and liver function WNL. Trop was elevated to 0.07. BNP not elevated. TSH mildly elevated to 4.6. Lyme neg. COVID neg. EKG showing sinus tachycardia with a RBBB, a prolonged QTc, left axis deviation and non-specific ST segment abnormalities. CT of cervical and thoracic spine show evidence of arthritis, but no acute changes. Chest CTA showing no evidence of a PE, but did show underlying pulmonary fibrosis with multifocal ground glass opacities and mediastinal LAD, thought to be reactive (per STAT RAD). He was given 1/2 liter bolus of NSS, Tylenol and fentnyl. Principal Diagnosis Working diagnoses: 1. Acute on chronic systolic heart failure 2. Multisystem organ dysfunction 3. Complete heart block 4. Recurrent myocardial infarctions/ischemia 5. Cardiogenic shockresolved Discharge Exam General: Resting comfortably in his hospital bed. Actually appears very comfortably and in NAD. Mentation/affect are both normal Neck:difficult to assess for JVD as RIJ temporary pacer indwelling. Cardiac: tacycardia (105 BPM at present) with prominent artificial heart sound/click Lungs: breathing comfortably on supplemental O2. Speaking full sentences without conversational dyspnea. bibasilar crackles. Abdomen: Normoactive X4. Soft and nontender in all quadrants. Extremities: No peripheral clubbing cyanosis or edema Neuro: A&O X4 cranial nerves II through XII are grossly intact no focal neuro deficits Skin: Casey/ashy. Mottled. Discharge Data Allergies Allergy/AdvReac Type Severity Reaction Status Date / Time carvedilol [From Coreg] AdvReac Severe complete Verified 09/09/20 10:07 heart block aspirin AdvReac Intermediate high doses Unverified 09/06/20 03:17 burn his stomach amlodipine AdvReac Unknown Verified 09/06/20 03:24 atorvastatin AdvReac Unknown Verified 09/06/20 03:24 ciprofloxacin AdvReac Unknown Verified 09/06/20 03:24 doxycycline AdvReac Unknown Verified 09/06/20 03:28 felodipine AdvReac Unknown Verified 09/06/20 03:20 fluvastatin AdvReac Muscle Pain Verified 09/06/20 03:23 gabapentin AdvReac Confusion Verified 09/06/20 03:23 hydralazine AdvReac Unknown Verified 09/06/20 03:20 hydrochlorothiazide AdvReac Unknown Verified 09/06/20 03:23 isosorbide AdvReac Unknown Verified 09/06/20 03:23 labetalol AdvReac Unknown Verified 09/06/20 03:27 levothyroxine AdvReac Unknown Verified 09/06/20 03:24 lisinopril AdvReac Chest Pain Verified 09/06/20 03:26 loratadine AdvReac Unknown Verified 09/06/20 03:26 losartan AdvReac Unknown Verified 09/06/20 03:26 methyldopa AdvReac Headache Verified 09/06/20 03:28 metoprolol AdvReac Unknown Verified 09/06/20 03:20 nifedipine AdvReac Unknown Verified 09/06/20 03:27 nitrofurantoin AdvReac Dizziness Verified 09/06/20 03:28 omeprazole AdvReac Muscle Pain Verified 09/06/20 03:18 simvastatin AdvReac Muscle Pain Verified 09/06/20 03:18 spironolactone AdvReac Nausea Verified 09/06/20 03:18 valsartan AdvReac Unknown Verified 09/06/20 03:18 Consultations 09/06/20 05:15 ED Decision to Admit Stat 09/07/20 15:25 Cardiology: Initial Consult: 1. NSTEMI: He did not present with acute coronary syndrome and denies any angin a. Could be due to demand ischemia in the setting of pulmonary fibrosis and pneumonia as he did present with leukocytosis and myalgias. No indication for urgent cardiac catheterization. Will further discuss some form of beta-cheo therapy such as carvedilol since he reportedly has not tolerated metoprolol in the past. He has not tolerated statins. 2. Cardiomyopathy: LV systolic function has declined. Echo findings discussed with him. Could be due to acute illness. Degree of troponin elevation does not correlate well with degree of LV systolic dysfunction. Could consider ischemic evaluation at some point. Recommend medical therapy for now well being treated for his pulmonary issues. He appears mildly hypervolemic on exam. Would consider intravenous diuretic if necessary but he appears to be diuresing well with oral diuretic. will discuss in more detail with him his intolerance to beta-cheo therapy but would consider carvedilol if he is agreeable and no significant complication in the past with beta-cheo. He also has reported intolerance to OMAR-inhibitor and ARB, with intolerance to spironolactone as well. Medical therapy may be limited. If no improvement over time, could consider ICD for primary prevention. 3. CAD s/p CABG and PCI: Details of prior revascularization are not known. [facility] No angina. Continue aspirin 81 mg daily. Has not tolerated several other cardiac meds as noted. 4. Mechanical aortic valve: On anticoagulation. Asymptomatic in this regard. 5. Pulmonary fibrosis and multifocal pneumonia: As per primary service. Symptoms have improved. 6. Mitral regurgitation: Non severe. Can be followed over time as an outpatient. 7. Hypertension: Blood pressure has been relatively well controlled. Will discuss cardiac meds as above. 8. Dyslipidemia: Has not tolerated statin therapy. Is tolerating Zetia. 9. Disposition: Cardiology will continue to follow. Highly complex medical issues. Thank you for allowing me to participate in the care of your patient. Please call for any other questions or concerns. 09/07/20 cardiology: 1. Complete heart block: Now has temporary transvenous pacemaker in place. Feeling much better. His decompensation was likely related to heart block in the setting of ischemic heart disease and cardiomyopathy. Unfortunately, he has evidence of multi system organ failure with yesterday's events. We discussed options such as consideration of permanent pacemaker versus palliative approach with comfort measures. He initially asked for consideration of permanent pacemaker placement. He was informed that this may or may not make much benefit in long-term but it would potentially allow us to treat his ischemic heart disease more aggressively medically given contraindication for beta-cheo currently. At the completion of our discussion, nursing staff contacted me to let me know that he change his mind. Had another discussion with him and he wishes to have pacemaker removed and not undergo permanent pacemaker placement. We discussed the fact that this would likely lead to further decompensation based on the last 24 hour events. He expressed understanding, including the fact that he may not survive, but wishes to be kept comfortable and pursue a palliative approach. Critical care team was notified. Plan was to leave temporary pacemaker in place so that appropriate measures could be taken to keep him comfortable. 2. Acute systolic CHF: Had decompensation while in complete heart block on 09/07/2020. Seems to be doing a bit better with pacemaker in place although not currently pacing, and also on INR trophic support. Would maintain net negative fluid balance to help with comfort goals. 3. NSTEMI: He did not present with acute coronary syndrome and had denied angina on presentation and initial consultation. He has had back and chest discomfort which may be his anginal equivalent, intermittently throughout this hospital stay. Troponin elevation indicates myocardial infarction, likely due to multivessel CAD given his history. Currently chest pain-free. Comfort measures as above. 4. Cardiomyopathy: LV systolic function has declined compared to 2020. Comfort measures as above. 5. CAD s/p CABG and PCI: Has had intermittent symptoms concerning for angina. He now chooses comfort approach. 6. Mechanical aortic valve: Was on Coumadin as an outpatient. 7. Mitral regurgitation: Non severe. 8. Hypertension: Is requiring inotropic support for hypotension overnight. This will likely be discontinued when ready for initiation of comfort measures as he wishes to no longer pursue these aggressive measures. 9. Dyslipidemia: Has not tolerated statin therapy. Has tolerated Zetia. 10. Disposition: Critically ill patient. Poor prognosis. He prefers comfort measures at this point after multiple discussions with him today at the bedside. Offered to call family and he once again adamantly refused to allow us to contact family members. Since then, have been contacted by primary service as he has granted them permission to contact family. Patient care discussed with critical care team and primary service. Please call with any other questions or concerns. 09/07/20 Thread Singer: Assessment & Plan (1) Acute on chronic systolic heart failure: Plan: Acute systolic heart failure ( [id number]) severely ill, poor prognosis-DNR/DNI, he reaffirmed that he does not want be intubated under any circumstances CAD/CABG Complete heart block with HR in the 30s mechanical aortic valve Will initiate diuresis with inotropic augmentation with Lasix and dopamine drip His volume overload will only worsen with a contrast load for this reason, the risk of respiratory faliure with cardiac cath outweighs the benefits of cath at this time Given how sick he is, I offered to call his POA and update but he explicitly refused. Lasix and dopamine drips initiated. Mechanical support with impella not an option in this patient with a mechanical aortic valve ICU transfer, high risk of sudden hemodynamic deterioration and . 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 The complete heart block transiently resolved, but later returned, requiring placement of transvenous catheter. He is currently being managed in the ICU for high risk of hemodynamic instability and is on a dobutamine drip. Patient is DNR/DNI and does not want POA or family members contacted. At admission, he desired other aggressive interventions such as central access, cardiac catheterization, and pacemaker, if indicated. Update: Patient prefers change to comfort measures status. As of 11:45 AM, carlos barba is eating his lunch and will make the change formally later. He states that he is aware of consequences of stopping treatment (will likely pass within days). Patient states his reason for this decision is that he wants to end the suffering from having all the stuff done. I reiterated the alternative option of evaluation for permanent pacer which would allow use of medications (e.g. beta blockers) that could improve quality of life. Patient is aware. He is adamant about not contacting family (he provided number for his son Braulio) until after he passes away. After patient is changed to comfort measures status, the treatments listed below will be stopped and comfort measures order set will be ordered. Palliative team consult requested/pending. NEURO - CAM ICU: negative (negative for inattention). Not oriented to context, but otherwise oriented to person, place, and time CARDIAC - acute vs acute on chronic systolic heart failure - 09/06/20 echo: EF 30%. moderately dilated LV w/ severely reduced systolic function. Global hypokinesis w/ severe hypokinesis to akinesis of inferior wall. - Comparison 08/28/19 echo: EF 55-60%. No RWMA. Severe concentric LVH, asymmetric. Mildly dilated descending aorta 4.4cm, unchanged. - regional hypokinesis concerning for ischemic event. ecg at 11AM w/ complete heart block w/ ventricular rate of 40 w/ LBBB appearance (from ventricular escape rhythm) - severity and timing of onset of systolic CHF unclear because of limited datapoints (1 year ago and this admission) - cardiac cath not indicated for poor prognosis. considering patient's complex cardiac hx, would not be surprising if there was multivessel involvement - multiorgan involvement (Cr bump, transaminases, troponin bump) appear acutely exacerbated this admission. At admission, Cr was <1. AST/ALT were normal. trop was .076. - patient was on Lasix drip 5mg/hr x ~5 hours on 09/06, since discontinued for rise in creatinine - on dopamine drip on 09/06, discontinued in evening. currently, on dobutamine drip 5 mcg/kg/min. Vitals stable. UOP good. Lactate downtrended. Trop peaked. - considered evaluation for permanent pacemaker which would allow treatment w/ medications of patient's heart, e.g. w/ beta blockers for improved quality of life. complete heart block, s/p transvenous pacer - s/p carvedilol as per above - lyme Ab and anaplasma smear negative - see above cardiogenic shock - likely secondary to the above - stable on dobutamine. continue elevated troponin - most likely from ischemia. would be less likely explained from demand - 0.076->0.456->2.95->2.71->3.46->4.58->7.27->6.49 - peaked as per above CAD s/p CABGx3 and stent - interventional cardiology considered cath today but deferred because poor candidate and supratherapeutic INR - hold home ranolazine mechanical aortic valve (year 2001) - on warfarin, currently held hypertension - currently on inotropic support dobutamine for hypotension and bradycardia, hold home HCTZ this admission hyperlipidemia - continue home Zetia RESP pulmonary fibrosis history of TB and RUL, RML partial lobectomy - not on home O2 - supp O2, titrate to >90. currently on 2-4L nasal cannula - continue home Mucinex - duoneb treatments GI - - DM2 and heart healthy diet RENAL/LYTES - lactic acidosis - lactate 4.9->3.5->5.5->2.1 - mild anion gap of 13 from this acute kidney injury - baseline Cr ~1.0. 1.67 (09/07) ->1.73 today - likely secondary to large amount of Lasix on 09/07 and hypoperfusion from cardiogenic shock - home lasix held. supplemental KCl PO held - f/u labs at noon hyperkalemia - daily BMP and replete electrolytes as needed. hyponatremia - 133, asymptomatic - - good persaud output w/o requiring further diuretics - 24 hour Is/Os 600 mL in 1900 mL out. cumulative 2L in 4L out - persaud, monitor Is/Os ENDO - prediabetes (A1C 6.2), not previously requiring medications - BSGs upper 200s, SSI w/ goal 140-180 - likely 2/2 steroids transaminitis - normal AST and ALT at admission -> low-mid 100s - likely 2/2 to acute systolic HF HEME - chronic anticoagulation use for mechanical valve - hold home warfarin. will start on heparin drip when INR <2.5 (4.3 this AM). - daily CBC and INR ID - presumed multifocal pneumonia - on daily ceftriaxone 2g IV and azithromycin 500mg IV (both started 09/06/20) - on methylpred 80 mg IV q8h - procalc wnl. CTA chest findings may be more consistent w/ chronic pulmonary fibrosis - leukocytosis 11.1->16.8, likely from corticosteroids LINES/IV ACCESS - PIVs. right central line. DVT PROPHYLAXIS - - chronic warfarin held for supratherapeutic INR DISPO ICU (2) Acute on chronic systolic heart failure: (3) Cardiomyopathy: (4) Elevated troponin: (5) Pulmonary fibrosis: (6) Multifocal pneumonia: (7) Anticoagulant long-term use: (8) HLD (hyperlipidemia): (9) HTN (hypertension): (10) History of tuberculosis: (11) History of coronary artery bypass graft x 3: (12) H/O mechanical aortic valve replacement: Admission and Anticipated Discharge Date Admission Date: September 06, 2020 09/08/20 follow up cardiology visit: ASSESSMENT/PLAN: 1. Complete heart block: Now has temporary transvenous pacemaker in place. Feeling much better. His decompensation was likely related to heart block in the setting of ischemic heart disease and cardiomyopathy. Unfortunately, he has evidence of multi system organ failure with yesterday's events. We discussed options such as consideration of permanent pacemaker versus palliative approach with comfort measures. He initially asked for consideration of permanent pacemaker placement. He was informed that this may or may not make much benefit in long-term but it would potentially allow us to treat his ischemic heart disease more aggressively medically given contraindication for beta-cheo currently. At the completion of our discussion, nursing staff contacted me to let me know that he change his mind. Had another discussion with him and he wishes to have pacemaker removed and not undergo permanent pacemaker placement. We discussed the fact that this would likely lead to further decompensation based on the last 24 hour events. He expressed understanding, including the fact that he may not survive, but wishes to be kept comfortable and pursue a palliative approach. Critical care team was notified. Plan was to leave temporary pacemaker in place so that appropriate measures could be taken to keep him comfortable. 2. Acute systolic CHF: Had decompensation while in complete heart block on 09/07/2020. Seems to be doing a bit better with pacemaker in place although not currently pacing, and also on INR trophic support. Would maintain net negative fluid balance to help with comfort goals. 3. NSTEMI: He did not present with acute coronary syndrome and had denied angina on presentation and initial consultation. He has had back and chest discomfort which may be his anginal equivalent, intermittently throughout this hospital stay. Troponin elevation indicates myocardial infarction, likely due to multivessel CAD given his history. Currently chest pain-free. Comfort measures as above. 4. Cardiomyopathy: LV systolic function has declined compared to 2020. Comfort measures as above. 5. CAD s/p CABG and PCI: Has had intermittent symptoms concerning for angina. He now chooses comfort approach. 6. Mechanical aortic valve: Was on Coumadin as an outpatient. 7. Mitral regurgitation: Non severe. 8. Hypertension: Is requiring inotropic support for hypotension overnight. This will likely be discontinued when ready for initiation of comfort measures as he wishes to no longer pursue these aggressive measures. 9. Dyslipidemia: Has not tolerated statin therapy. Has tolerated Zetia. 10. Disposition: Critically ill patient. Poor prognosis. He prefers comfort measures at this point after multiple discussions with him today at the bedside. Offered to call family and he once again adamantly refused to allow us to contact family members. Since then, have been contacted by primary service as he has granted them permission to contact family. Patient care discussed with critical care team and primary service. Please call with any other questions or concerns. 09/08/20 13:49 Consult Palliative Care Routine (1) Palliative care encounter: He tells me that he has considered this. He understands that his cardiac function is poor and not likely to improve significantly. He also understands that he will if pacemaker support is withdrawn. When I asked him if he had unfinished business or concerns he said "I don't have a care in the world, my nephew will take care of everything." His nephew is present in the room and supports Mr. Echavarria's decision. At this time he is waiting for his sister to arrive. He has requested that after he has an opportunity to talk with his sister, he would like to withdraw pacer support. We discussed what to expect. (2) Dyspnea: We talked about medication to reduce his work of breathing and relieve any air hunger that he is having. He would like that but prefers to wait until his sister arrives so that he is awake and cogent for her visit. Order for morphine adjusted to Q30min prn. He does have progressive renal failure with decreased perfusion. If he were to need frequent dosing or possible infusion, would rotate to hydromorphone to avoid opioid toxicity. He also has orders for lorazepam and glycopyrrolate for secretions. (3) Chest pain: As above. Subsequent visit (1) Dyspnea: Plan: Sats are within normal limits. We discussed opioid to reduce work of breathing and relieve air hunger. He feels that he is ok for now. He did have one dose of morphine last night for back pain. (2) Constipation: Plan: Denies nausea or abdominal pain. Has had limited po intake. Miralax was ordered but he would prefer suppository. Order placed for dulcolax. (3) Palliative care encounter: Plan: I talked with Mr. Echavarria about plan for his care moving forward. He remains very weak and his condition is tenuous. His preference would be to be at home until his . He lives alone and does not have anyone to help him at home. He would need 24/7 care and does not have resources for paid caregivers. He has two sons who live in the [place] area but would not be able to stay with him. I suggested SNF but he is not particularly receptive to the idea. I also discussed who would make decisions for him if he were unable to do so. He tells me that he makes his own decisions. We discussed that this is absolutely the goal but that it would be good to designate a surrogate if he were unable to do so. He declines to that at this time. I did speak with his sons, Franklin and Braulio, on the phone. They feel that SNF would be the best option for him and will discuss further with case management later today. Discussed with case management. (4) Acute systolic (congestive) heart failure: (5) Complete heart block: (6) Non-ST elevation (NSTEMI) myocardial infarction: Procedures Performed Operation Date: 09/07/20 12:15 Actual Procedures p Cineradiography w/Routine Exam - Nito Meyers MD Operation Date: 09/08/20 04:30 Actual Procedures p Ins/RemTemporary Transvenous Pacer - Nito Meyers MD s Ultrasound Vascular Access - Nito Meyers MD Ordered Studies 09/06/20 02:53 CT angio chest dissec wo/w con Urgent IMPRESSION: 1. No evidence of aortic dissection or significant dilatation. Ectasia of ascending aorta. There is no aortic wall hematoma is seen. 2. Four-chamber cardiomegaly. Status post CABG. Atherosclerosis. Prosthetic aortic valve. 3. Interstitial lung disease, non-UIP pattern. Possibly superimposed infiltrates within bilateral lower lobes and left upper lobe. Short-term follow- up in 4-6 weeks is recommended to document improvement/resolution. 4. Mildly dilated pulmonary artery which could be seen in pulmonary hypertension. 5. The rest of findings as above. CT cervical spine wo con Urgent IMPRESSION: 1. No acute fracture or traumatic malalignment. 2. Mild degenerative changes as detailed above. CT thoracic spine wo con Urgent IMPRESSION: No acute thoracic spine fracture or subluxation. 09/07/20 12:09 CL Cath Imgs for PACS use only Routine 09/08/20 04:33 CL Cath Imgs for PACS use only Routine Hospital Course (1) Heart block AV complete: Currently, patient is in a wide complex SVT. Can not use any rate reducing agents given the recent events with complete heart block. I suspect that he will likely go back into some type of block/arrythmia. Once temporary pacer removed, can move from the ICU. At this time, his prognosis is grave. Will monitor over the next 24-48 hours. Patient surprisingly stable at this time. ? "calm before the storm" uncertain is patient will survive discharge. He certainly can not go home as he lives alone. He is unhappy about the idea of a SNF but understands. Case mgmt consulted Mr. Echavarria is an 85 y/o WM initially hospitalized for what was thought to he Multifocal PNA with an elevated troponin (? type II event). Initial troponin peaked at 0.24. He was on abx therapy empirically for CAP (rocephin/azithromycin) along with mucolytic agents, antitussives, neb treatments and IV steroids as patient as had a h/o pulmonary fibrosis and was thought to have a mild exacerbations. Initial BNP was not significantly elevated (1728) On hospital day #2, patient had a return of his mid back pain (that was described as crushing) with radiation into his bilateral chest wall. He was HD stable (HR 110 and SBP 156). A repeat Troponin was obtained showing evolution of his acute cardiac event (which was thought to be the cause of his back pain). He was given 2 SL NTG without improvement and subsequently given Morphine which alleviated his pain. He was slightly hypoxic (88% on RA) for which O2 was added. He had some find crackles and wheezes on exam. He was given 40mg IV lasix x 1 [place] [address]. He has an echocardiogram showing a decreased EF of 30% (which 1 year ago it was 55%) along with severe hypokinesia of the inferior wall of the heart. It was thought that this ongoing back pain that he had been experiencing over the course of the past month was likely not related to PNA at all but perhaps angina. Although patient found to have vague opacities on CT, may have been related to fibrotic changes. At any rate- empiric abx therapy continued. His WBC went up (to 16K) which was thought to be steroid induced and reactive from his evolving ACS. EKG done with his CP showed no acute changes compared to prior. With his poor EF, ACS (and knowing that he was HD stable)-- patient was started on coreg for afterload reduction and cardiac protection. Shortly after Coreg given, patient became bradycardic (35's) and was found to have complete heart block. 5mg Glucagon given with little improvement. Cardiology and Thread Singer notified and plan was for patient to be taken to the medical lab specialist for ? cath but more importantly temporary transvenous pacemaker. Unfortunately, his pulmonary status declined (likely given his acute evolving myocardial infarct) and his CHF became acutely uncompensated. It was felt that the risk of cardiac cath. did not outweigh the benefit. Instead, patient was placed on a dopamine and Lasix GTT and managed in the ICU. In the crm analyst hours on 09/08, patient subsequently went back into complete heart block with cardiogenic shock (he was bradycardic and hypotensive). Was gi isaac 2 back to back doses of atropine without improvement. Started back on a dopamine gtt. Taken emergently for a temporary transvenous pacemaker subsequently transitioned to dobutamine for cardiogenic shock. Cardiology did discuss in great detail with patient (as did I) that an option is continuation of temporary pacing with dobutamine and mgmt of his CHF with added lasix; however- unsure if his renal and hepatic function would continue to decline (which was likely from inadequate perfusion from poor cardiac output given the complete heart block with bradycardia and ACS). With continued HD s tability, organ function may improve. Pt would then require a PPM (which cardiology would consider if respiratory status remained stable along with renal and hepatic function). His A/CKD is likely related to poor cardiac output as well. Unfortunately, a PPM would not change the issue with his underlying heart disease. He is s/p multivessel bypass and PCI x5. Can not do a cath with renal dysfunction as contrast needed would only worse his renal dysfunction. If renal function would improve and patient would be candidate for a cardiac cath-- he has known heart disease. ? anything amendable to intervention. Perhaps placement of a PPM would allow for maximized medical mgmt (ie: BB to aid in cardiac output) but again, would not fix his underlying vessel disease. Lengthy D/W patient regarding continued intervention to determine what his renal/hepatic and respiratory function would do and if improved/remained stable--> proceeding with PPM +/- cardiac cath. Even if were could proceed with intervention, uncertain if it would change the outcome. I suspect that he has been having angina or even small infarcts over the past month. Patient well aware of everything listed above and has decided on POSTAL SERVICE WINDOW CLERK. All options were discussed with patient and his sons by multiple providers and he has decided that he wants nothing interventional and for POSTAL SERVICE WINDOW CLERK. In the overnight hours (09/08-09/09), temporary pacer was removed and hemodynamic support stopped as he wishes to " comfortably". Palliative care on board-- recommendations and mgmt of this end of life stage have greatly appreciated Multiple discussions had with patient, cardiology, natural fabricator, palliative care, attending, in addition to his sons and nephew. Patient completely understands that his overall prognosis is grave. He wants only comfort measures at this time and family is respecting these wishes. From 09/08 through 09/10--> patient has shown slow but steady decline. He is becoming more short of breath. He does have morphine sulfate on board and has been reassured that he can use this for pain but also for air hunger. He has declined needing this at any point thus far. He remains on oxygen strictly for comfort. He does get extremely dyspneic when attempting to toilet. He has a Persaud catheter in place again for comfort. His urine has become tea colored. His skin has become grayshe and he is having increased Rales at the bases. I suspect he will likely continue in acute CHF with multisystem organ dysfunction but length of time is unknown until he expires is unknown. He has requested to be transferred to the [place] facility with hospice. Case management on board and has helped facilitate this. Patient has been discharged with Roxanol as needed for chest pain/air starvation, atropine ophthalmic solution to use orally for oral secretions, and oral Ativan. In addition, the Persaud catheter has been left in place for comfort and he can use supplemental oxygen as needed for comfort. (2) Cardiogenic shock: - see above (3) Non-ST elevation (NSTEMI) myocardial infarction: - see above (4) Acute systolic (congestive) heart failure: - see above (5) Multisystem organ failure: - see above (6) Leukocytosis: - likely steroid induced and reactive from above events. see above - not added labs as patient is POSTAL SERVICE WINDOW CLERK (7) Multifocal pneumonia: - may or may not have a component of PNA; however, I am not convinced. - Ongoing back pain and cough likely due to angina/multiple infarcts and mild pulmonary vascular congestion - At any rate, was treated with empiric antibiotic therapy. Uptrending white count likely steroid-induced/reactive - Opacities noted on CT likely fibrotic changes. - since patient has decided on POSTAL SERVICE WINDOW CLERK, abx stopped as will not improve his cardiac and impending respiratory decline (8) Pulmonary fibrosis: - noted on CT chest - per patient, no known exposure to asbestos or beryllium (9) Elevated troponin: -see above (10) CAD (coronary artery disease): - history of CABD x 3 and PCI x 5 - see above (11) HLD (hyperlipidemia): - POSTAL SERVICE WINDOW CLERK- see above (12) HTN (hypertension): - POSTAL SERVICE WINDOW CLERK- see above (13) H/O mechanical aortic valve replacement: - POSTAL SERVICE WINDOW CLERK- see above (14) S/P coronary artery stent placement: - see above (15) History of coronary artery bypass graft x 3: - see above Total Time Total Time Spent Total Time Spent (In Minutes): 90 minutes including time spent with patient and family Discharge Plan Discharge Items Patient Disposition: Transfer Residential Fac Reason For Visit: multifocal pneumonia, pulm fibrosis, elev troponin Discharge Diagnosis: Working Diagnoses: 1. Acute Systolic Heart Failure 2. Recurrent Myocardial Ischemia/Infarctions 3. Complete Heart Block 4. Multisystem Organ Dysfunction (Involving Cardiac/Hepatic/Renal) Activity: As commented below Activity Comment: as tolerated Non-emergency contact: Primary Care Provider Call non-emergency contact if: you have any medication questions Follow-up/Referrals: Floridalma Waldron C.R.N.P. [Primary Care Provider] - Diet: Regular Addtl Attending Provider Instructions: PATIENT IS COMFORT MEASURES ONLY WITH HOSPICE -can use oxygen as needed for SOB (would advise note to titrate for hypoxemia but rather for comfort) -recommend using Roxanol as needed for pain/air hunger -recommend atropine ophth. solution PO as needed for oral secreations -recommend ativan SL as needed for anxiety - follow up with the house Provider within 24-48 hours -prognosis in grave. Recommend Hospice consult. Pending Studies at Discharge: No Stand-Alone Forms: [facility] Skilled Items Patient informed of condition?: Yes Discharge Level of Care: Other Communicable Disease: No Discharge Prognosis: Other Lines: None Urinary Catheter: Yes Medications and DC Order Prescriptions: New morphine 20 mg/5 mL (4 mg/mL) solution 5 mg PO Q1H Qty: 100 RF: 0 atropine 1 % drops 1 drp buccal Q1H Qty: 15 RF: 0 lorazepam [Ativan] 1 mg tablet 1 mg sublingual Q6H PRN (Reason: sleep) Qty: 30 RF: 0 Discontinued methocarbamol 500 mg Tablet 500 mg PO HS PRN (Reason: Muscle Spasm) RF: 0 nitroglycerin 0.2 mg/hr Patch 24 Hour 1 patch TRANSDERMAL QAM RF: 0 aspirin 81 mg Tablet,Delayed Release (Dr/Ec) 81 mg PO QAM RF: 0 nitroglycerin 0.4 mg/hr Patch 24 Hour 1 patch TRANSDERMAL QAM RF: 0 tamsulosin 0.4 mg Capsule 0.4 mg PO HS RF: 0 warfarin 5 mg Tablet 5 mg PO PM RF: 0 hydralazine 50 mg Tablet 50 mg PO QID RF: 0 hydrochlorothiazide 25 mg Tablet 25 mg PO QAM RF: 0 furosemide [Lasix] 20 mg Tablet 20 mg PO QAM RF: 0 finasteride 5 mg Tablet 5 mg PO PM RF: 0 ezetimibe 10 mg Tablet 10 mg PO QAM RF: 0 glycerin (adult) Suppository 1 supp [place] DAILY RF: 0 ranolazine 500 mg Tablet Extended Release 12 Hr 1,000 mg PO BID RF: 0 nitroglycerin 0.3 mg Tablet, Sublingual 0.3 mg sublingual UD PRN (Reason: Chest Pain) RF: 0 tramadol 50 mg Tablet 50 mg PO Q6H PRN (Reason: Pain) RF: 0 pantoprazole 20 mg Tablet,Delayed Release (Dr/Ec) 20 mg PO DAILY RF: 0 triamcinolone acetonide 0.025 % Cream 1 applic TOPICAL BID RF: 0 potassium chloride 20 mEq Tablet Extended Release 20 meq PO DAILY RF: 0 Olodaterol/Tiotrop 2.5 mcg 2 inh PO DAILY RF: 0 lidocaine 5 % Adhesive Patch,Medicated 1 patch TOPICAL DAILY RF: 0 fluticasone propionate 50 mcg/actuation [place],Suspension 2 spray INTRANASAL DAILY RF: 0 coenzyme Q10 200 mg Capsule 200 mg PO DAILY RF: 0 carboxymethylcellulose sodium 1 % Drops 1 drp OPHTHALMIC (EYE) QID RF: 0 Discharge Orders: Discharge Order (Routine); Ordered 09/10/20 Ordered By: Jenny Motta Admission Data Admit Date/Time: 09/06/20 05:48 Attending Provider: Jerel Hooper Admit Provider: Tim Vogel Primary Care Provider: Floridalma Waldron Other Providers: [facility] ; Ila Eisenberg ; Tim Vogel ; [place] Other Interventions: Discharge Summary Assessment (RN) Last Done: 09/10/20 13:29 Supervising Physician Co-Signing Physician Notes Patient seen and examined on the day of discharge. I agree with the discharge summary by Jenny PACK. I have reviewed the chart including labs, imaging and plans for discharge. patient is stable, he is approved for transfer to [place] facility for hospice - CAD: severe, presented with NSTEMI, progressed to complete heart block, suspected to be due to ischemic heart disease treated with temp pacemaker as well as dopamine to improve HR and blood pressure renal function started to decline, rise in Cr and low urine output patient did not want permanent pacemaker, not a candidate for left heart cath he would like to be kept comfortable when he deteriorates further from a cardiac perspective long discussions with ICU, cardiology, palliative care his family visited with him Coding Level of Care Code D/C DAY MANAGEMENT >30 MINS Diagnoses Heart block AV complete I44.2 Cardiogenic shock R57.0 Non-ST elevation (NSTEMI) myocardial infarction I21.4 Acute systolic (congestive) heart failure I50.21 Multisystem organ failure Leukocytosis D72.829 Multifocal pneumonia J18.9 Pulmonary fibrosis J84.10 Elevated troponin R77.8 CAD (coronary artery disease) I25.10 HLD (hyperlipidemia) E78.5 HTN (hypertension) I10 H/O mechanical aortic valve replacement Z95.2 S/P coronary artery stent placement Z95.5 History of coronary artery bypass graft x 3 Z95.1 Time Spent (min) 90
--- NOTE | 2020-09-20 08:58 | Coding Query ---
CODING QUERY To promote full compliance with coding requirements relating to patient care, provider participation is requested in all cases of disability case manager uncertainty. Please assist us with the question(s) below: Coding Question(s): Patient admitted with CHB and Acute/Chronic Sys Heart Failure. Progress notes documented LA/NSTEMI - also demand ischemia. Please check below the diagnosis that was diagnosed /treated during this IP stay. Thank you. Masoud Crenshaw [facility] Physician's Response(s): __x____ NSTEMI was treated during this IP Stay , POA Demand Ischemia was treated during this IP Stay . Cannot clinically correlate if NSTEMI or demand ischemia was treated Other: please document: Principal Diagnosis: "that condition established after study, to be chiefly responsible for occasioning the admission of the patient to the hospital for care." Co-Existing Principal Diagnosis: "when two or more diagnoses equally meet the criteria for principal diagnosis as determined by the circumstances of admission, diagnostic work up, and/or therapy provided, and the Alphabetic Index, Tabular List, or another coding guideline does not provide sequencing direction, any one of the diagnoses may be sequenced first." "When the physician has documented what appears to be a current diagnosis in the body of the record, but has not included the diagnosis in the final diagnostic statement, the physician should be asked whether the diagnosis should be added." (Source Coding [facility] 2 QTR90. p3-4) JUS
--- NOTE | 2020-09-20 09:01 | Coding Query ---
CODING QUERY To promote full compliance with coding requirements relating to patient care, provider participation is requested in all cases of home economics expert uncertainty. Please assist us with the question(s) below: Coding Question(s): Patient admitted with NSTEMI / acute on chronic systolic heart failure. Progress notes documented Pneumonia . Please check below the following that descirbes the Pneumonia. Thanks for your help. Masoud [facility] Physician's Response(s): Pneumonia was treated , POA , ___x___ Pneumonia was not treated (initially suspected but in fact he was having NSTEMI) Cannot Clinically Correlate if Pneumonia was treated Other / Please document: Principal Diagnosis: "that condition established after study, to be chiefly responsible for occasioning the admission of the patient to the hospital for care." Co-Existing Principal Diagnosis: "when two or more diagnoses equally meet the criteria for principal diagnosis as determined by the circumstances of admission, diagnostic work up, and/or therapy provided, and the Alphabetic Index, Tabular List, or another coding guideline does not provide sequencing direction, any one of the diagnoses may be sequenced first." "When the physician has documented what appears to be a current diagnosis in the body of the record, but has not included the diagnosis in the final diagnostic statement, the physician should be asked whether the diagnosis should be added." (Source Coding Clinic 2 QTR90. p3-4) JUS
== END 2020-09-10 15:13 | disposition hospice, inpatient (51) | DRG 280 ==
LOC: ED 02:42 → SUATTDRO 05:48 → 1E 05:48 → 2E 20:57 → 1E 09-07 13:31 → 3W 09-09 10:03
DX: Z79.01 Long term (current) use of anticoagulants; J84.10 Pulmonary fibrosis, unspecified; I21.4 Non-ST elevation (NSTEMI) myocardial infarction; E87.2 Acidosis; I50.23 Acute on chronic systolic (congestive) heart failure; I47.1 Supraventricular tachycardia; I42.9 Cardiomyopathy, unspecified; Y92.009 Unspecified place in unspecified non-institutional (private) residence as the place of occurrence of the external cause; I13.0 Hypertensive heart and chronic kidney disease with heart failure and stage 1 through stage 4 chronic kidney disease, or unspecified chronic kidney disease; R57.0 Cardiogenic shock; Z87.891 Personal history of nicotine dependence; Z95.2 Presence of prosthetic heart valve; Z95.1 Presence of aortocoronary bypass graft; N17.9 Acute kidney failure, unspecified; I25.10 Atherosclerotic heart disease of native coronary artery without angina pectoris; E78.5 Hyperlipidemia, unspecified; I45.10 Unspecified right bundle-branch block; R74.01 Elevation of levels of liver transaminase levels; Z95.5 Presence of coronary angioplasty implant and graft; E11.9 Type 2 diabetes mellitus without complications; E87.5 Hyperkalemia; Z90.2 Acquired absence of lung [part of]; E87.1 Hypo-osmolality and hyponatremia; I44.2 Atrioventricular block, complete; I34.0 Nonrheumatic mitral (valve) insufficiency; N18.9 Chronic kidney disease, unspecified; T46.5X5A Adverse effect of other antihypertensive drugs, initial encounter; Z66 Do not resuscitate; Z51.5 Encounter for palliative care; I24.8 Other forms of acute ischemic heart disease; Z79.82 Long term (current) use of aspirin; R00.1 Bradycardia, unspecified